=== PATIENT | female | born 2000 | race Caucasian/White ===

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

== ENCOUNTER 2018-01-17 14:35 | Outpatient (CLI) | payer MEDICAID ==
[2018-01-17 17:43] LABS: MUDS CUTOFF CONCENTRATIONS CUTOFF CONC BELOW:
[2018-01-17 18:01] LABS: AMPHETAMINE SCREEN,URINE NEGATIVE (NEGATIVE); BENZODIAZEPINES SCREEN, URINE NEGATIVE (NEGATIVE); COCAINE SCREEN URINE NEGATIVE (NEGATIVE); METHADONE SCREEN, URINE NEGATIVE (NEGATIVE); METHAMPHETAMINES SCREEN, URINE NEGATIVE (NEGATIVE); OPIATE SCREEN, URINE NEGATIVE (NEGATIVE); OXYCODONE SCREEN, URINE NEGATIVE (NEGATIVE); PROPOXYPHENE SCREEN, URINE NEGATIVE (NEGATIVE); TRICYCLIC ANTIDEPRESSANT,URINE NEGATIVE (NEGATIVE)
== END 2018-01-17 14:36 | disposition home or self-care (01) ==
LOC: LAB.R 14:35
PROVIDERS: ATTEND Registered Nurse
DX: Z3A.13 13 weeks gestation of pregnancy (principal)
CPT/HCPCS: 80306

== ENCOUNTER 2018-01-23 12:00 | Emergency (ER) | payer MEDICAID ==
[2018-01-23 12:49] LABS: BILIRUBIN,URINE NEGATIVE (NEGATIVE); GLUCOSE, URINE (UA) NEGATIVE (NEGATIVE); KETONES,URINE (UA) NEGATIVE (NEGATIVE); LEUKOCYTE ESTERASE, URINE NEGATIVE (NEGATIVE); NITRITE,URINE NEGATIVE (NEGATIVE); OCCULT BLOOD,URINE NEGATIVE (NEGATIVE); PROTEIN,URINE NEGATIVE (NEGATIVE); UROBILINOGEN,URINE 1 (NORMAL) E.U./dL (NORMAL)
[2018-01-23 12:50] LABS: CLARITY,URINE CLEAR (CLEAR); HCG UR QUAL POSITIVE
--- NOTE | 2018-01-23 13:52 | ED Physician Documentation ---
PD HPI FEMALE - Stated complaint Stated Complaint: LOWER ABD PX/14WKS PREG - Chief complaint Chief Complaint: Abd Pain - History obtained from History obtained from: Patient, Family - History of Present Illness Timing - onset: Yesterday Timing - details: Intermittant Associated symptoms: Pelvic pain. No: Fever, Vaginal pain, Vaginal bleeding, Vaginal discharge Contributing factors: OB-RESIDENTIAL PLUMBER History: G (1), P (0) Recently seen: Not recently seen - Additional information Additional information: Patient is a 18 year old female about 14 weeks by dates who is presenting to the emergency department for evaluation of lower abdominal pain. patient states that the symptoms started yesterday and she was worried about them all night so she came to the ED to get checked out. Patient has had routine care and IUP has been confirmed. Review of Systems Ten Systems: 10 systems reviewed and negative Constitutional: denies: Fever, Chills GI: reports: Abdominal Pain. denies: Nausea, Vomiting, Constipation, Diarrhea : denies: Dysuria, Frequency, Hesitancy, Discharge PD PAST MEDICAL HISTORY - Past Medical History Past Medical History: No - Past Surgical History Past Surgical History: No - Allergies Allergies/Adverse Reactions: Allergies Allergy/AdvReac Type Severity Reaction Status Date / Time Penicillins Allergy Hives Verified 01/23/18 12:07 - Social History Does the pt smoke?: No Smoking Status: Never smoker Does the pt drink ETOH?: No Does the pt have substance abuse?: No - Immunizations Immunizations are current?: Yes - POLST Patient has POLST: No PD ED PE NORMAL - Vitals Vital signs reviewed: Yes - General General: Alert and oriented X 3, No acute distress - HEENT HEENT: Atraumatic - Neck Neck: Supple, no meningeal sign - Cardiac Cardiac: RRR - Respiratory Respiratory: No respiratory distress - Abdomen Abdomen: Soft, Non tender - Female Female : Pt declined - Derm Derm: Normal color, Warm and dry, No rash - Extremities Extremities: No deformity - Neuro Neuro: Alert and oriented X 3, No motor deficit, Normal speech Eye Opening: Spontaneous Results - Vitals Vitals: Vital Signs - 24 hr 01/23/18 12:05 Temperature 36.7 C Heart Rate 108 H Respiratory 18 Rate Blood Pressure 132/71 H O2 Saturation 98 Oxygen O2 Source Room air - Labs Labs: Laboratory Tests 01/23/18 12:34 Urine Color YELLOW Urine Clarity CLEAR Urine pH 6.0 Ur Specific [place] 1.015 Urine Protein NEGATIVE Urine Glucose (UA) NEGATIVE Urine Ketones NEGATIVE Urine Occult Blood NEGATIVE Urine Nitrite NEGATIVE Urine Bilirubin NEGATIVE Urine Urobilinogen 1 (NORMAL) Ur Leukocyte Esterase NEGATIVE Ur Microscopic Review NOT INDICATED Urine Culture Comments NOT INDICATED Urine HCG, Qual POSITIVE Procedures - Bedside sono Bedside sono by EMP: bedside pelvic ultrasound showed a viable IUP with a fhr of 158 PD MEDICAL DECISION MAKING - ED course Complexity details: reviewed old records, reviewed results, re-evaluated patient , considered differential, d/w patient ED course: patient was seen and examined at bedside. urine was collected. Patient had no sign of dehydration or infection. bedside ultrasound was performed and was within normal limits. Patient declined pelvic exam at this time and stated that she would follow up with her beveling machine operator.. patient required no further work up at this time and was stable for discharge with outpatient follow up. - Sepsis Event Vital Signs: Vital Signs - 24 hr 01/23/18 12:05 Temperature 36.7 C Heart Rate 108 H Respiratory 18 Rate Blood Pressure 132/71 H O2 Saturation 98 Oxygen O2 Source Room air Departure - Departure Disposition: 01 Home, Self Care Clinical Impression: Abdominal pain affecting Condition: Good Instructions: Ultrasound Follow-Up: Phi Naidu ARNP [Primary Care Provider] - Within 3 Days Comments: Your diagnostics today were within normal limits. the fetus was well appearing and there is no sign of infection. It is important that you stay well hydrated and you can take tylenol as needed for pain. you should follow up with your doctor /beveling machine operator for further evaluation if your symptoms don't improve. you may return to the emergency department at any time for new, worsening or uncontrollable symptoms.
[2018-01-23 14:01] VITALS: BP 104/65
== END 2018-01-23 13:59 | disposition home or self-care (01) ==
LOC: ED 12:00
DX: O26.891 Other specified pregnancy related conditions, first trimester (principal); R10.30 Lower abdominal pain, unspecified; R10.2 Pelvic and perineal pain; Z3A.14 14 weeks gestation of pregnancy
CPT/HCPCS: 81001; 81003; 81025; 87086; 99283; 99284

== ENCOUNTER 2018-02-09 14:34 | Outpatient (CLI) | payer MEDICAID ==
[2018-02-09 19:01] LABS: BASOPHILS # (AUTO) 0.1 10^3/uL (0.0-0.1); BASOPHILS % (AUTO) 0.5 %; EOSINOPHILS # (AUTO) 0.1 10^3/uL (0.0-0.7); EOSINOPHILS % (AUTO) 0.9 %; HGB - HEMOGLOBIN 12.6 g/dL (12.0-16.0); LYMPHOCYTES # (AUTO) 1.6 10^3/uL (1.5-3.5); LYMPHOCYTES % (AUTO) 15.7 %; MEAN CORPUSCULAR HEMOGLOBIN 30.2 pg (27.0-31.0); MEAN CORPUSCULAR HGB CONC 35.3 g/dL (32.0-36.0); MEAN CORPUSCULAR VOLUME 85.7 fL (81.0-99.0); MEAN PLATELET VOLUME 8.6 fL (7.9-10.8); MONOCYTES # (AUTO) 0.6 10^3/uL (0.0-1.0); MONOCYTES % (AUTO) 5.5 %; NEUTROPHILS # (AUTO) 7.8 10^3/uL (1.5-6.6); NEUTROPHILS % (AUTO) 77.4 %; PLT - PLATELET COUNT 288 10^3/uL (130-450); RED BLOOD COUNT 4.18 10^6/uL (4.20-5.40); RED CELL DISTRIBUTION WIDTH 12.6 % (12.0-15.0); WHITE BLOOD COUNT 10.1 x10^3/uL (4.8-10.8)
[2018-02-09 19:13] LABS: BILIRUBIN,URINE NEGATIVE (NEGATIVE); GLUCOSE, URINE (UA) NEGATIVE (NEGATIVE); KETONES,URINE (UA) NEGATIVE (NEGATIVE); LEUKOCYTE ESTERASE, URINE NEGATIVE (NEGATIVE); NITRITE,URINE NEGATIVE (NEGATIVE); OCCULT BLOOD,URINE NEGATIVE (NEGATIVE); PH,URINE 6.5 PH (5.0-7.5); PROTEIN,URINE TRACE mg/dL (NEGATIVE); UROBILINOGEN,URINE 0.2 (NORMAL) E.U./dL (NORMAL)
[2018-02-09 19:22] LABS: CLARITY,URINE CLEAR (CLEAR)
[2018-02-09 21:39] LABS: AMORPHOUS SEDIMENT,UR Few /LPF; BACTERIA,URINE None Seen /HPF (None Seen); MUCUS,URINE Few Strands; RBC,URINE None Seen /HPF (0-5); SQUAMOUS EPITHELIAL CELL,UR NONE SEEN (<= Few)
[2018-02-09 21:40] LABS: CRYSTALS,URINE 6-10 Calcium Oxalate /LPF
[2018-02-10 10:31] LABS: HEPATITIS B SURFACE ANTIGEN NON-REACTIVE (NON-REACTIVE)
[2018-02-10 12:36] LABS: HEPATITIS C ANTIBODY NON-REACTIVE (NON-REACTIVE)
[2018-02-10 14:32] LABS: HIV AG/AB 4TH GEN NON-REACTIVE (NON-REACTIVE)
== END 2018-02-09 14:35 | disposition home or self-care (01) ==
LOC: LAB.N 14:34
PROVIDERS: ATTEND Nurse Practitioner Obstetrics & Gynecology
DX: Z34.81 Encounter for supervision of other normal pregnancy, first trimester (principal)
CPT/HCPCS: 36415; 81001; 81599; 82105; 82677; 84702; 85025; 86336; 86592; 86762; 86803; 86850; 86900; 86901; 87340; 87389

== ENCOUNTER 2018-03-10 07:24 | Outpatient (CLI) | payer MEDICAID ==
--- NOTE | 2018-03-10 09:41 | Ultrasound Report ---
Reason: ENCTR FOR SCREENING Procedure Date: 03/10/2018 Accession Number: [id number] / [id number] Procedure: US - OB Detailed Eval CPT Code: FULL RESULT: EXAM: COMPLETE OBSTETRICAL ULTRASOUND EXAM DATE: 03/10/2018 09:13 AM. CLINICAL HISTORY: anatomic survey. COMPARISON: None. TECHNIQUE: Real-time sonographic evaluation of the fetus performed by the accountancy professor. Multiple business representative static images were saved for review. Additional transvaginal imaging to more accurately evaluate cervical length/placental position/etc. DATING: Established EGA 21 weeks 0 days with TERRENCE 07/21/2018 based on LMP. EGA 21 weeks 0 days with TERRENCE 07/21/2018 based on the current ultrasound. GENERAL EVALUATION Wan . Cardiac activity: 150 bpm. movement: Visualized. Presentation: Cephalic. Placenta: Posterior position. No evidence for previa. Umbilical cord: 3 vessel cord. Central placental cord origin. Amniotic fluid: Subjectively normal. MVP 4.6 cm. BIOMETRY Bi-Parietal Diameter (BPD): 5.0 cm, 21 weeks 0 days Head Circumference (HC): 18.6 cm, 21 weeks 0 days Abdominal Circumference (AC): 14.9 cm, 20 weeks 1 day Femur Length (FL): 3.6 cm, 21 weeks 4 days Estimated Weight: 381 gm, 37th percentile for LMP. ANATOMY The intracranial structures, profile, face/nose/lips, spine, 4 chamber heart and outflow tracts, stomach, abdominal wall and cord insertion, diaphragm, kidneys, bladder, and extremities were visualized and demonstrate no abnormality. MATERNAL STRUCTURES Uterus: Unremarkable. Cervix: Long and closed. Transabdominal length 3.6 cm. Right ovary/adnexa: Unremarkable. Left ovary/adnexa: Unremarkable. Free fluid: None. IMPRESSION: 1. Wan live intrauterine with gestational age 21 weeks 0 days based on source of assigned dating. 2. Estimated weight is within expected limits for assigned dating. 3. No anatomic abnormalities are detected at this time. RADIA
== END 2018-03-10 07:25 | disposition home or self-care (01) ==
LOC: DI 07:24
PROVIDERS: ATTEND Registered Nurse
DX: Z36.9 Encounter for antenatal screening, unspecified (principal)
CPT/HCPCS: 76811

== ENCOUNTER 2018-04-24 13:28 | Outpatient (CLI) | payer MEDICAID ==
[2018-04-24 18:37] LABS: BASOPHILS # (AUTO) 0.1 10^3/uL (0.0-0.1); BASOPHILS % (AUTO) 0.7 %; EOSINOPHILS # (AUTO) 0.2 10^3/uL (0.0-0.7); EOSINOPHILS % (AUTO) 1.5 %; HGB - HEMOGLOBIN 11.8 g/dL (12.0-16.0); LYMPHOCYTES # (AUTO) 2.1 10^3/uL (1.5-3.5); LYMPHOCYTES % (AUTO) 15.4 %; MEAN CORPUSCULAR VOLUME 88.4 fL (81.0-99.0); MEAN PLATELET VOLUME 8.6 fL (7.9-10.8); MONOCYTES # (AUTO) 0.7 10^3/uL (0.0-1.0); MONOCYTES % (AUTO) 5.1 %; NEUTROPHILS # (AUTO) 10.3 10^3/uL (1.5-6.6); NEUTROPHILS % (AUTO) 77.3 %; PLT - PLATELET COUNT 300 10^3/uL (130-450); RED BLOOD COUNT 3.81 10^6/uL (4.20-5.40); RED CELL DISTRIBUTION WIDTH 13.2 % (12.0-15.0); WHITE BLOOD COUNT 13.3 x10^3/uL (4.8-10.8)
== END 2018-04-24 13:29 | disposition home or self-care (01) ==
LOC: LAB.N 13:28
PROVIDERS: ATTEND Registered Nurse
DX: Z34.82 Encounter for supervision of other normal pregnancy, second trimester (principal)
CPT/HCPCS: 36415; 82950; 85025; 86850

== ENCOUNTER 2018-05-23 22:47 | Outpatient (CLI) | payer MEDICAID ==
[2018-05-23 23:06] VITALS: BP 115/70
== END 2018-05-24 00:26 | disposition home or self-care (01) ==
LOC: WFO 22:47 → FBP 22:50 → WFO 05-24 00:26
PROVIDERS: ATTEND Obstetrics & Gynecology
DX: O26.893 Other specified pregnancy related conditions, third trimester (principal); R25.2 Cramp and spasm; R55 Syncope and collapse; Z3A.31 31 weeks gestation of pregnancy
CPT/HCPCS: 93005; 99214

== ENCOUNTER 2018-05-29 08:00 | Outpatient (CLI) | payer MEDICAID | END 2018-05-29 08:01 | disposition home or self-care (01) | LOC: LAB.R 08:00 | PROVIDERS: ATTEND Nurse Practitioner Obstetrics & Gynecology | DX: O36.8131 Decreased fetal movements, third trimester, fetus 1 (principal); N89.8 Other specified noninflammatory disorders of vagina; Z11.3 Encounter for screening for infections with a predominantly sexual mode of transmission | CPT/HCPCS: 82731; 87480; 87491; 87510; 87591; 87660 ==

== ENCOUNTER 2018-05-29 10:47 | Outpatient (CLI) | payer MEDICAID ==
[2018-05-29 11:04] VITALS: BP 125/74
== END 2018-05-29 11:25 | disposition home or self-care (01) ==
LOC: WFO 10:47 → FBP 10:49 → WFO 11:25
PROVIDERS: ATTEND Nurse Practitioner Obstetrics & Gynecology
DX: O36.8130 Decreased fetal movements, third trimester, not applicable or unspecified (principal); Z3A.32 32 weeks gestation of pregnancy; O99.89 Other specified diseases and conditions complicating pregnancy, childbirth and the puerperium; N98.9 Complication associated with artificial fertilization, unspecified; Z11.3 Encounter for screening for infections with a predominantly sexual mode of transmission
CPT/HCPCS: 59025; 82731; 87480; 87491; 87510; 87591; 87660

== ENCOUNTER 2018-06-07 12:32 | Outpatient (CLI) | payer MEDICAID ==
[2018-06-07 13:35] LABS: BILIRUBIN,URINE NEGATIVE (NEGATIVE); GLUCOSE, URINE (UA) NEGATIVE (NEGATIVE); KETONES,URINE (UA) NEGATIVE (NEGATIVE); LEUKOCYTE ESTERASE, URINE NEGATIVE (NEGATIVE); NITRITE,URINE NEGATIVE (NEGATIVE); OCCULT BLOOD,URINE NEGATIVE (NEGATIVE); PROTEIN,URINE NEGATIVE (NEGATIVE); UROBILINOGEN,URINE 0.2 (NORMAL) E.U./dL (NORMAL)
[2018-06-07 13:38] LABS: CLARITY,URINE CLOUDY (CLEAR)
[2018-06-07 13:44] LABS: BACTERIA,URINE Few /HPF (None Seen); RBC,URINE 0-5 /HPF (0-5); SQUAMOUS EPITHELIAL CELL,UR RARE Squamous (<= Few)
[2018-06-07 14:14] VITALS: BP 124/78
[2018-06-07 14:22] LABS: RUPTURE OF MEMBRANES PLUS NEGATIVE (NEGATIVE)
[2018-06-07] MEDS ORDERED: LACTATED RINGERS 1,000 ML IV ONE ×2 (14:40→15:01)
[2018-06-07] MEDS ORDERED: SODIUM CHLORIDE FLUSH 0.9% 10 ML SYRINGE ONE (14:40)
[2018-06-07] MEDS ORDERED: LIDOCAINE-MPF 1% 5 ML VIAL ONE (15:12)
[2018-06-07] MEDS ORDERED: TERBUTALINE 1 MG/ML VIAL SUBQ ONE (16:16)
== END 2018-06-07 17:32 | disposition home or self-care (01) ==
LOC: WFO 12:32 → FBP 12:33 → WFO 17:32
PROVIDERS: ATTEND Nurse Practitioner Obstetrics & Gynecology
DX: O47.03 False labor before 37 completed weeks of gestation, third trimester (principal); Z3A.33 33 weeks gestation of pregnancy
CPT/HCPCS: 81001; 82731; 84112; 96360; 96361; 96372; 99213; J7120; 87086

== ENCOUNTER 2018-06-25 21:41 | Outpatient (CLI) | payer MEDICAID ==
[2018-06-25 22:12] VITALS: BP 122/73
== END 2018-06-25 22:51 | disposition home or self-care (01) ==
LOC: WFO 21:41 → FBP 21:45 → WFO 22:51
PROVIDERS: ATTEND Nurse Practitioner Obstetrics & Gynecology
DX: O47.03 False labor before 37 completed weeks of gestation, third trimester (principal); Z3A.36 36 weeks gestation of pregnancy
CPT/HCPCS: 87797; 99212

== ENCOUNTER 2018-06-26 11:14 | Outpatient (CLI) | payer MEDICAID ==
[2018-06-26 11:44] VITALS: BP 115/77
[2018-06-26 12:01] LABS: RUPTURE OF MEMBRANES PLUS NEGATIVE (NEGATIVE)
== END 2018-06-26 12:30 | disposition home or self-care (01) ==
LOC: WFO 11:14 → FBP 11:17 → WFO 12:30
PROVIDERS: ATTEND Nurse Practitioner Obstetrics & Gynecology
DX: O99.89 Other specified diseases and conditions complicating pregnancy, childbirth and the puerperium (principal); N89.8 Other specified noninflammatory disorders of vagina; Z3A.36 36 weeks gestation of pregnancy
CPT/HCPCS: 59025; 84112

== ENCOUNTER 2018-06-26 18:13 | Outpatient (CLI) | payer MEDICAID ==
[2018-06-26] MEDS ORDERED: LACTATED RINGERS 1,000 ML IV ONE (19:31)
[2018-06-26] MEDS ORDERED: MORPHINE 10 MG/ML VIAL IM SCH (19:34)
[2018-06-26] MEDS ORDERED: NIFEdipine ER 90 MG TABLET PO SCH (20:00)
[2018-06-26] MEDS ORDERED: PROMETHAZINE 25 MG/1 ML VIAL IM SCH (20:00)
[2018-06-26] MEDS: LACTATED RINGERS 1,000 ML IV SCH ×2 (20:11→20:40)
[2018-06-27 08:52] VITALS: BP 120/70
== END 2018-06-27 09:26 | disposition home or self-care (01) ==
LOC: WFO 18:13 → FBP 18:14 → WFO 19:57 → FBP 19:57 → UNDOADMOB 19:58 → FBP 19:58 → UNDODISOB 06-27 09:26 → WFO 06-27 09:26
PROVIDERS: ATTEND Registered Nurse
DX: O47.03 False labor before 37 completed weeks of gestation, third trimester (principal); Z3A.36 36 weeks gestation of pregnancy; O99.89 Other specified diseases and conditions complicating pregnancy, childbirth and the puerperium; N89.8 Other specified noninflammatory disorders of vagina
CPT/HCPCS: 59025; 84112; 96360; 96372; 99213; A9270; J7120

== ENCOUNTER 2018-06-28 01:12 | Outpatient (CLI) | payer MEDICAID ==
[2018-06-28 01:26] VITALS: BP 112/59
== END 2018-06-28 02:30 | disposition home or self-care (01) ==
LOC: WFO 01:12 → FBP 01:13 → WFO 02:30
PROVIDERS: ATTEND Nurse Practitioner Obstetrics & Gynecology
DX: O47.03 False labor before 37 completed weeks of gestation, third trimester (principal); Z3A.36 36 weeks gestation of pregnancy
CPT/HCPCS: 96372; 99213; J3410

== ENCOUNTER 2018-06-30 00:26 | Outpatient (CLI) | payer MEDICAID ==
[2018-06-30 00:45] VITALS: BP 127/71
[2018-06-30] MEDS ORDERED: TERBUTALINE 1 MG/ML VIAL SUBQ ONE (01:38)
[2018-06-30] MEDS ORDERED: PROMETHAZINE 25 MG/1 ML VIAL IM STA (01:38)
[2018-06-30 02:07] LABS: BILIRUBIN,URINE NEGATIVE (NEGATIVE); GLUCOSE, URINE (UA) NEGATIVE (NEGATIVE); KETONES,URINE (UA) NEGATIVE (NEGATIVE); LEUKOCYTE ESTERASE, URINE NEGATIVE (NEGATIVE); NITRITE,URINE NEGATIVE (NEGATIVE); OCCULT BLOOD,URINE NEGATIVE (NEGATIVE); PH,URINE 6.5 PH (5.0-7.5); PROTEIN,URINE NEGATIVE (NEGATIVE); UROBILINOGEN,URINE 0.2 (NORMAL) E.U./dL (NORMAL)
[2018-06-30 02:11] LABS: CLARITY,URINE CLEAR (CLEAR)
== END 2018-06-30 02:30 | disposition home or self-care (01) ==
LOC: WFO 00:26 → FBP 00:28 → WFO 02:30
PROVIDERS: ATTEND Nurse Practitioner Obstetrics & Gynecology
DX: O47.1 False labor at or after 37 completed weeks of gestation (principal); Z3A.37 37 weeks gestation of pregnancy
CPT/HCPCS: 81001; 81003; 87086; 99213

== ENCOUNTER 2018-07-01 20:11 | Outpatient (CLI) | payer MEDICAID ==
[2018-07-01 21:02] VITALS: BP 116/66
[2018-07-01 21:16] LABS: RUPTURE OF MEMBRANES PLUS NEGATIVE (NEGATIVE)
== END 2018-07-01 21:35 | disposition home or self-care (01) ==
LOC: WFO 20:11 → FBP 20:14 → WFO 21:35
PROVIDERS: ATTEND Nurse Practitioner Obstetrics & Gynecology
DX: O99.89 Other specified diseases and conditions complicating pregnancy, childbirth and the puerperium (principal); N89.8 Other specified noninflammatory disorders of vagina; Z3A.37 37 weeks gestation of pregnancy
CPT/HCPCS: 84112; 99213

== ENCOUNTER 2018-07-03 08:00 | Outpatient (CLI) | payer MEDICAID | END 2018-07-03 23:59 | disposition home or self-care (01) | LOC: LAB.R 08:00 | PROVIDERS: ATTEND Nurse Practitioner Obstetrics & Gynecology | DX: Z36.85 Encounter for antenatal screening for Streptococcus B (principal) | CPT/HCPCS: 87081 ==

== ENCOUNTER 2018-07-06 23:10 | Outpatient (CLI) | payer MEDICAID ==
[2018-07-06 23:26] VITALS: BP 126/77
[2018-07-07 00:27] LABS: RUPTURE OF MEMBRANES PLUS NEGATIVE (NEGATIVE)
== END 2018-07-07 00:48 | disposition home or self-care (01) ==
LOC: WFO 23:10 → FBP 23:12 → WFO 07-07 00:48
PROVIDERS: ATTEND Registered Nurse
DX: O47.1 False labor at or after 37 completed weeks of gestation (principal); Z3A.37 37 weeks gestation of pregnancy
CPT/HCPCS: 84112; 99213

== ENCOUNTER 2018-07-12 16:24 | Outpatient (CLI) | payer MEDICAID ==
[2018-07-12 16:49] VITALS: BP 126/77
[2018-07-12 17:35] LABS: RUPTURE OF MEMBRANES PLUS NEGATIVE (NEGATIVE)
== END 2018-07-12 17:58 | disposition home or self-care (01) ==
LOC: WFO 16:24 → FBP 16:27 → WFO 17:58
PROVIDERS: ATTEND Registered Nurse
DX: O47.1 False labor at or after 37 completed weeks of gestation (principal); Z3A.38 38 weeks gestation of pregnancy
CPT/HCPCS: 84112; 99212

== ENCOUNTER 2018-07-15 17:07 | Inpatient (IN) | payer MEDICAID ==
[2018-07-15] MEDS ORDERED: CARBOPROST TROMETHAMINE 250 MCG/ML AMP IM PRN (17:13)
[2018-07-15] MEDS ORDERED: ONDANSETRON ODT 4 MG TABLET TL PRN (17:13)
[2018-07-15] MEDS ORDERED: fentaNYL 100 MCG/2 ML VIAL IVP PRN (17:13)
[2018-07-15] MEDS ORDERED: miSOPROStol 200 MCG TABLET PR ONE (17:13)
[2018-07-15] MEDS ORDERED: SODIUM CHLORIDE FLUSH 0.9% 10 ML SYRINGE IVP PRN (17:13)
[2018-07-15] MEDS ORDERED: METHYLERGONOVINE 0.2 MG/ML AMP IM PRN (17:13)
[2018-07-15] MEDS ORDERED: miSOPROStol 200 MCG TABLET PR PRN (17:13)
[2018-07-15] MEDS ORDERED: OXYTOCIN/SODIUM CHLORIDE 500 ML IV SCH (18:00)
[2018-07-15] MEDS: miSOPROStol 100 MCG TABLET BC SCH ×2 (18:04→23:44)
[2018-07-15 18:06] LABS: BASOPHILS # (AUTO) 0.1 10^3/uL (0.0-0.1); BASOPHILS % (AUTO) 0.6 %; EOSINOPHILS # (AUTO) 0.2 10^3/uL (0.0-0.7); EOSINOPHILS % (AUTO) 1.5 %; HGB - HEMOGLOBIN 11.6 g/dL (12.0-16.0); LYMPHOCYTES # (AUTO) 2.3 10^3/uL (1.5-3.5); LYMPHOCYTES % (AUTO) 17.1 %; MEAN CORPUSCULAR HEMOGLOBIN 28.3 pg (27.0-31.0); MEAN CORPUSCULAR HGB CONC 33.2 g/dL (32.0-36.0); MEAN CORPUSCULAR VOLUME 85.3 fL (81.0-99.0); MONOCYTES # (AUTO) 0.8 10^3/uL (0.0-1.0); MONOCYTES % (AUTO) 5.8 %; NEUTROPHILS # (AUTO) 10.2 10^3/uL (1.5-6.6); PLT - PLATELET COUNT 348 10^3/uL (130-450); RED CELL DISTRIBUTION WIDTH 13.6 % (12.0-15.0); WHITE BLOOD COUNT 13.6 x10^3/uL (4.8-10.8)
[2018-07-15] MEDS ORDERED: ZOLPIDEM 5 MG TABLET PO PRN (22:35)
[2018-07-16] MEDS: LACTATED RINGERS 1,000 ML IV SCH ×2 (04:18→11:22)
--- NOTE | 2018-07-16 04:59 | PROVIDER PROGRESS NOTE ---
Labor Progress Note - Uterine Monitoring Uterine Monitoring Mode: positive: External toco Contraction Frequency (min/apart): 2-3 Contraction Intensity: positive: Mild Uterine Resting Tone: positive: Soft - Monitoring Monitor Mode: positive: External ultrasound Heart Rate Baseline: 145 Heart Rate Variability: positive: Moderate (6-25 bmp) Accelerations: positive: Present, 15x15 Decelerations: positive: Late, Intermittent (<50% x20 min) Strip Review: positive: Category II - Vaginal Exam Dilation (in cm): 1 Effacement (%): 70 Station: -1 Cervical Position: Midposition (soft) - Labor Progress Note Labor Progress Note/Additional Text: S: Carmen is comfortable, reports occasional cramping; was able to sleep some, but not for a prolonged period of time, now watching a DVD, partner @ bedside, supportive. Does not desire analgesia/anesthesia @ this time. 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 Hold misoprostol until strip consistently reactive 2. Reviewed likely etiology of late decelerations & recommended maternal position changes 3. Reviewed optimal maternal positioning to facilitate descent 4. Will place FSE if decelerations persistent despite maternal position changes 5. Continue misoprostol for cervical ripening once EFM reassuring, CEFM for duration of cervical ripening to ensure consistent evaluation of well- being 6. Reviewed plan of care w/ pt, partner & RN @ bedside; all in agreement, without concerns.
--- NOTE | 2018-07-16 05:08 | HISTORY & PHYSICAL EXAMINATION ---
Admit History - Visit Reason Visit Reason: Other (preinduction cervical ripening for elective induction of labor >39 weeks' gestation) - : 2 Parity: 0 Premature: 0 Ectopic: 0 : 1 Care: positive: [facility] (beginning @ 8 weeks' gestation) Risk/History: positive: None Complications This : positive: None Smoking Status: Current every day smoker - Mother's Labs Mother's Blood Type: positive: A Mother's RH: positive: Positive GBS: positive: Group B Step Negative Rubella Status: positive: Immune - Other Maternal History Other Maternal History: Carmen Sen is a 18 y/o @ 39w2d gestation by early first trimester US who presents for preinduction cervical ripening for elective induction of labor per pt request for maternal discomfort. Her has been complicated by anxiety and depression for which she has refused medication management and by frequent visits to [facility] for concerns that have not been clinically evident at the time of evaluation. She has smoked tobacco throughout her & was not successful in her attempts to quit, although she did decrease the quantity of cigarettes smoked on a daily basis from ~1ppd to <1/2 ppd. She complains of discomfort w/ movement & w/ contractions; she is hoping for an unmedicated delivery. PMH: depression, anxiety, PTSD PSH: none OBhx: SAB 2016, 7 weeks, uncomplicated GYNHx: Denies hx of STI; too young for pap screening SocHx: to [place]; denies DV: smokes <1/2ppd, denies ETOH/drugs; tox screen negative; unemployed Famhx: noncontributory PE: GEN: AAOx3, NAD WA gravid female HEENT: grossly normocephalic, atraumatic RESP: CTA b/l t/o CARDIAC: rrr nls1s2, no m ABD: gravid, NT, ND, lie longitudinal, position cephalic, EFW 7.5-8# OB: EFM BL 145bpm, + accels, no decels, mod jaimee; toco: occ UC; SVE in office /-1, posterior : no lesion, no LOF MS: FROM t/o, no deformity, no edema NEURO: no focal deficit SKIN: warm, well-perfused, c/d/i, no lesion PSYCH: odd affect, often pressured speech, otherwise pleasantly conversant Meds/Allgy - Allergies Allergies/Adverse Reactions: Allergies Allergy/AdvReac Type Severity Reaction Status Date / Time Penicillins Allergy Unknown Hives Verified 07/15/18 22:57 dairy AdvReac Intermediate Nausea Uncoded 07/15/18 22:56 eggs AdvReac Intermediate Cramps Uncoded 07/15/18 22:57 gluten AdvReac Intermediate Cramps Uncoded 06/26/18 19:04 cantalope, honeydew AdvReac Unknown Cramps Uncoded 07/15/18 22:57 Physical - Abdominal Exam Vital Signs: Temp Pulse Resp BP Pulse Ox 36.9 C 103 H 20 121/69 98 07/15/18 17:26 07/15/18 18:41 07/15/18 17:26 07/15/18 17:26 07/15/18 17:26 Plan for Labor - Plan For Labor I expect patient to be DC'd or transferred within 96 hours.: Yes Plan for Labor: 1. initiate preinduction cervical ripening w/ misoprostol 50mcg BC q 4 hours 2. CEFM for cervical ripening; may have periods unmonitored if >4 hours since misoprostol administration & FHTs cat I 3. Reassess cervical status w/ clear clinical indication 4. Encouraged maternal ambulation/mobilization 5. Admit to inpatient status w/ ROM or active labor 6. Pt aware of all analgesia/anesthesia options
[2018-07-16] MEDS ORDERED: NICOTINE 7 MG PATCH TOP ONE (06:18)
[2018-07-16] MEDS ORDERED: NICOTINE 7 MG PATCH TOP SCH (09:00)
--- NOTE | 2018-07-16 09:05 | ANESTHESIA ---
Pre-Anesthesia VS, & Labs - Diagnosis Active labor - Procedure Vaginal delivery Vital Signs: Temp Pulse Resp BP Pulse Ox 36.9 C 103 H 20 121/69 98 07/15/18 17:26 07/15/18 18:41 07/15/18 17:26 07/15/18 17:26 07/15/18 17:26 Height 5 ft 2 in Weight (kg) 79.832 kg Body Mass Index 28.1 - NPO Other (N/A--labor) - Is Patient ?: Yes - Lab Results Current Lab Results: Laboratory Tests 07/15/18 17:40: WBC 13.6 H, RBC 4.10 L, Hgb 11.6 L, Hct 35.0 L, MCV 85.3, MCH 28.3, MCHC 33.2, RDW 13.6, Plt Count 348, MPV 8.0, Neut # (Auto) 10.2 H, Lymph # (Auto) 2.3, [place] # (Auto) 0.8, Eos # (Auto) 0.2, Baso # (Auto) 0.1, Absolute Nucleated RBC 0.02, Nucleated RBC % 0.1 Fish Bones: 07/15/18 17:40 Home Medications and Allergies Active Medications Acetaminophen (Tylenol) 650 mg PO Q6H PRN PRN Reason: Pain or Fever Carboprost Tromethamine (Hemabate) 250 mcg IM ONCE PRN PRN Reason: Post- Hemorrhage Stop: 07/22/18 17:12 Fentanyl (Fentanyl) 100 mcg IVP Q1H PRN PRN Reason: PAIN Last Admin: 07/16/18 08:21 Dose: 50 mcg Lactated Ringer's (Lr) 1,000 mls @ 100 mls/hr IV .Q10H AGUILA Last Admin: 07/16/18 04:18 Dose: 100 mls/hr Oxytocin/Sodium Chloride (Pitocin/Sodium Chloride) 500 mls @ 1 mls/hr IV TITR AGUILA; Protocol Methylergonovine Maleate (Methergine Inj) 0.2 mg IM Q4H PRN PRN Reason: Post- Hemorrhage Misoprostol (Cytotec) 50 mcg BC Q4HR AGUILA Last Admin: 07/15/18 23:44 Dose: 50 mcg Misoprostol (Cytotec) 800 mcg RI ONCE PRN PRN Reason: Post- Hemorrhage Stop: 07/22/18 17:12 Nicotine (Nicoderm) 1 patch TOP DAILY AGUILA Last Admin: 07/16/18 06:16 Dose: 1 patch Ondansetron HCl (Zofran Inj) 4 mg IVP Q4HR PRN PRN Reason: Nausea / Vomiting Ondansetron HCl (Zofran Odt) 4 mg TL Q4HR PRN PRN Reason: Nausea / Vomiting Sodium Chloride (Normal Saline Flush 0.9%) 10 ml IVP 0100,0900,1700 AGUILA Sodium Chloride (Normal Saline Flush 0.9%) 10 ml IVP PRN PRN PRN Reason: NEEDED PER PROVIDER ORDERS Zolpidem Tartrate (Ambien) 5 mg PO QPM PRN PRN Reason: Insomnia Last Admin: 07/15/18 23:01 Dose: 5 mg Allergies/Adverse Reactions: Allergies Allergy/AdvReac Type Severity Reaction Status Date / Time Penicillins Allergy Unknown Hives Verified 07/15/18 22:57 dairy AdvReac Intermediate Nausea Uncoded 07/15/18 22:56 eggs AdvReac Intermediate Cramps Uncoded 07/15/18 22:57 gluten AdvReac Intermediate Cramps Uncoded 06/26/18 19:04 cantalope, honeydew AdvReac Unknown Cramps Uncoded 07/15/18 22:57 Anes History & Medical History - Anesthetic History Family history of Anesthesia Complications: Denies Family history of Malignant Hyperthermia: Denies - Medical History Cardiovascular: reports: None Pulmonary: reports: Asthma (exercise induced asthma as a teen) Gastrointestinal: reports: None Urinary: reports: None Neuro: reports: Migraines, Other ("pinched nerve that radiates from low back to neck" Denies any diagnostic studies) Endocrine/Autoimmune: reports: None Blood Disorders: reports: None Skin: reports: None Smoking Status: Current every day smoker Psychosocial: reports: Depression, Anxiety - Obstetrical History : 2 Parity: 0 Events: positive: None Complications: positive: None Exam General: Alert, Oriented x3, Cooperative, No acute distress Dental: WNL Mouth Openin Fingerbreadth Mallampati classification: II Thyromental Distance: 4-6 cm Mental/Cognitive Status: Alert/Oriented X3, Normal for patient Plan Anesthesia Type: Epidural Consent for Procedure(s) Verified and Reviewed: Yes Code Status: Attempt Resuscitation ASA classification: 2-Mild systemic disease Is this case an emergency?: No
[2018-07-16] MEDS ORDERED: fent/BUPIV 2 MCG/0.125% 250 ML EP ONE (09:13)
[2018-07-16] MEDS ORDERED: BUPIVACAINE 0.25% PF 10 ML VIAL ONE (09:14)
[2018-07-16] MEDS ORDERED: NALOXONE 0.4 MG/ML VIAL IVP PRN (09:44)
[2018-07-16] MEDS ORDERED: ONDANSETRON 4 MG/2 ML VIAL IVP PRN (09:44)
[2018-07-16] MEDS ORDERED: NALBUPHINE 10 MG/ML AMP IVP PRN (09:44)
[2018-07-16] MEDS ORDERED: ePHEDrine 50 MG/ML VIAL IVP PRN (09:44)
[2018-07-16] MEDS ORDERED: fent/BUPIV 2 MCG/0.125% 250 ML EP PRN (09:44)
[2018-07-16] MEDS: SODIUM CHLORIDE FLUSH 0.9% 10 ML SYRINGE IVP SCH ×2 (11:17→16:15)
[2018-07-16] MEDS: ONDANSETRON 4 MG/2 ML VIAL IVP PRN ×2 (11:17→16:15)
[2018-07-16] MEDS ORDERED: SODIUM CHLORIDE FLUSH 0.9% 10 ML SYRINGE ONE ×2 (11:19→16:16)
[2018-07-16] MEDS ORDERED: miSOPROStol 200 MCG TABLET ONE (15:53)
--- NOTE | 2018-07-16 17:37 | PROVIDER PROGRESS NOTE ---
Labor Progress Note - Uterine Monitoring Uterine Monitoring Mode: positive: External toco Contraction Frequency (min/apart): 2-5 Contraction Intensity: positive: Moderate Uterine Resting Tone: positive: Soft - Monitoring Monitor Mode: positive: External ultrasound Heart Rate Baseline: 145 Heart Rate Variability: positive: Moderate (6-25 bmp) Accelerations: positive: Present, 15x15 Decelerations: positive: None Strip Review: positive: Category I - Vaginal Exam Dilation (in cm): 3 Effacement (%): 70 Station: -1 Cervical Position: Midposition (per RN) - Labor Progress Note Labor Progress Note/Additional Text: S: Carmen is uncomfortable & cramping. Desires analgesia, considering anesthesia O: AAOx3, NAD WA gravid female VSS EFM: BL 150bpm, +accels, no decels, mod jaimee TOCO: UCs q2-5 min SVE per RN: 3/70/-1; SROM for thick MSAF A: 18 y/o @ 39w2d by first trimester US, elective IOL per pt request Cervical change s/p 2 doses buccal misoprostol SROM for thick MSAF, GBS neg Desires analgesia FHTs cat I P: 1. Analgesia/anesthesia PRN per pt request 2. Reassess cervical status when comfortable, begin Pitocin if no change
--- NOTE | 2018-07-16 17:41 | PROVIDER PROGRESS NOTE ---
Labor Progress Note - Uterine Monitoring Uterine Monitoring Mode: positive: External toco Contraction Frequency (min/apart): 3-6 Contraction Intensity: positive: Moderate Uterine Resting Tone: positive: Soft - Monitoring Monitor Mode: positive: External ultrasound Heart Rate Baseline: 145 Heart Rate Variability: positive: Moderate (6-25 bmp) Accelerations: positive: Present, 15x15 Decelerations: positive: None Strip Review: positive: Category I - Vaginal Exam Dilation (in cm): 4 Effacement (%): 70 Station: -1 (per RN) Cervical Position: Midposition - Labor Progress Note Labor Progress Note/Additional Text: S: Carmen is comfortable w/ epidural in place O: AAox3, NAD WA gravid female VSS EFM: BL 145bpm, +accels, no decels, mod jaimee TOCO: UCs q3-6 min SVE: 4/70/-1 per RN Ongoing leakage of thick MSAF A: 18 y/o @ 39w2d by first trimester US s/p preinduction cervical ripening, effective w/ 2 doses buccal misoprostol Favorable cervical status, erratic contraction pattern GBS neg, MSAF, SROM x3 hours, afebrile FHTs cat I Adequate pain control w/ epidural anesthesia P: 1. Begin Pitocin infusion & titrate to adequate contraction pattern by tocometry 2. Reassess cervical status 2 hours s/p establishment of adequate labor by tocometry, earlier PRN 3. Encouraged maternal rest
--- NOTE | 2018-07-16 17:44 | PROVIDER PROGRESS NOTE ---
Labor Progress Note - Uterine Monitoring Uterine Monitoring Mode: positive: External toco Contraction Frequency (min/apart): 2-3 Contraction Intensity: positive: Strong Uterine Resting Tone: positive: Soft - Monitoring Monitor Mode: positive: External ultrasound Heart Rate Baseline: 140 Heart Rate Variability: positive: Moderate (6-25 bmp) Accelerations: positive: Present, 15x15 Decelerations: positive: None Strip Review: positive: Category I - Vaginal Exam Dilation (in cm): 7 Effacement (%): 90 Station: 0 Cervical Position: Midposition (per RN) - Labor Progress Note Labor Progress Note/Additional Text: S: Carmen is comfortable w/ her epidural O: AAOx3, NAD WA gravid female VSS EFM BL 140bpm, +accels, no decels, mod jaimee TOCO: UCs q2-3 min x60 seconds on 4mU/min of Pitocin SVE: 7/90/0 per RN Ongoing leakage of thick MSAF A: 18 y/o # 39w2d by first trimester US; elective induction of labor Pitocin induction w/ progressive cervical change s/p misoprostol preinduction cervical ripening Thick MSAF, SROM x7 hours, afebrile GBS neg FHTs cat I Adequate pain control w/ epidural anesthesia P: 1. Continue to titrate Pitocin infusion to maintain adequate labor by tocometry 2. Reassess cervical status x2-4 hours, earlier PRN 3. Encouraged maternal rest
--- NOTE | 2018-07-16 17:50 | DELIVERY NOTE ---
Delivery Note - Labor Labor: positive: Induced by oxytocin, Other - Cervical Ripening Method Cervical Ripening Method: positive: Misoprostil - Presentation Presentation: positive: Vertex, CHARU - right occiput anterior - Nuchal Cord Nuchal Cord: positive: None - Anesthetic Anesthetic Type: - Amniotic Fluid Description Amniotic Fluid Description: positive: Thick meconium - Episiotomy Type Episiotomy Type: positive: None - Laceration Laceration: positive: 1st degree, Vaginal, Other (right jayson-clitoral) - Suture Suture Type: positive: Vicryl Suture Size: positive: 4-0 - Delivery Outcome Delivery Outcome: positive: Livebirth - [place]: positive: Placed in direct skin contact with mother, Suctioned, Bulb syringe, Stimulated, Warmed, Warmer used sex: positive: Male - Cord Cord: positive: 3 vessels - Placenta Placenta: positive: Intact, Spontaneous, Meconium stained - Estimated Blood Loss Estimated Blood Loss (in cc): 150 - Post Delivery Events Post Delivery Events: positive: No post delivery events - Delivery Comments (Free Text/Narrative) Delivery Comments (Free Text/Narrative): Carmen Sen is a 18 y/o [id number] who presented for induction of labor @ 39w1d per pt request for discomfort & prodromal contraction activity. She received 2 doses of buccal misoprostol over a period of 16 hours for effective preinduction cervical ripening. She requested & received an epidural for pain management. She experienced SROM for thick MSAF @ 0730. She received Pitocin infusion to maximum infusion rate of 4mU/min for induction of labor s/p effective cervical ripening. FHTs were monitored electronically t/o & were consistently cat I-II w/o concern for acidemia. She progressed readily to complete dilatation @ 1425, for a total first stage duration of 6 hours. She pushed w/ direction to viable male in CHARU position over an intact perineum @ 1705, for a total 2nd stage duration of 40 minutes. Total ruptured duration 9 hours, 35 minutes, afebrile t/o. Infant vigorous w/ spontaneous, lusty cry. Placed to maternal abd for drying/stim. Delayed cord clamping until cessation of pulsation, then cord clamped x2 by CNM, cut by FOB. 3VC noted, cord blood obtained; cord segment obtained for gases secondary to MSAF. Active management of the 3rd stage w/ Pitocin in IV fluids. Placenta del spont & intact, Jessica, @ 1710, for a total 3rd stage duration of 5 minutes. FF @ U. Vagina & perineum inspected & first degree R periclitoral lac & 1st degree vaginal lac noted; both repaired w/ single stitch of 4-0 vicryl under epidural anesthesia; hemostatic. EBL 150mL. Mother & infant stable. Apgars 8/9; weight pending. n uzzling @ breast w/in 15 minutes of delivery; intends to breastfeed.
[2018-07-16] MEDS ORDERED: WITCH HAZEL/GLYCERIN 1 EACH MED..PAD TOP PRN (17:51)
[2018-07-16] MEDS ORDERED: HYDROCORTISONE/PRAMOXINE 10 GM PR PRN (17:51)
[2018-07-16] MEDS ORDERED: MAGNESIUM HYDROXIDE 2,400 MG/30 ML UDC PO PRN (17:51)
[2018-07-16] MEDS ORDERED: HYDROCORTISONE 1% CREAM 28 GM TUBE PR PRN (17:51)
[2018-07-16] MEDS ORDERED: IBUPROFEN 800 MG TABLET PO SCH (18:00)
[2018-07-16] MEDS: NAPROXEN 250 MG TABLET PO SCH (20:58)
[2018-07-16] MEDS: DOCUSATE SODIUM 100 MG CAPSULE PO SCH (20:58)
[2018-07-16] MEDS: ACETAMINOPHEN 325 MG TABLET PO PRN (20:59)
[2018-07-16] MEDS ORDERED: SODIUM CHLORIDE FLUSH 0.9% 10 ML SYRINGE IVP SCH (23:00)
[2018-07-17] MEDS: ACETAMINOPHEN 325 MG TABLET PO PRN ×3 (08:07→20:29)
[2018-07-17] MEDS: NICOTINE 14 MG PATCH TOP SCH (08:08)
[2018-07-17] MEDS: NAPROXEN 250 MG TABLET PO SCH ×2 (08:08→19:36)
[2018-07-17] MEDS: DOCUSATE SODIUM 100 MG CAPSULE PO SCH ×2 (08:08→22:43)
--- NOTE | 2018-07-17 08:14 | PROVIDER PROGRESS NOTE ---
Subjective - Subjective Subjective: S: Bonding well with baby. without difficulty. Bleeding moderate. Pain well controlled with oral medications. No BM as of yet but has been passing flatulence. Moods is good. and [id number] supportive at the bedside. O: Bp 114/69, T 37.0, Hr 82, RR 20. Heart RRR w/o M/G/R, lungs CTAB, abdomen soft and nontender with fundus firm at U-1, bilateral LE's no edema. Perineum intact. Light lochia rubra. A: 18yo -->P1 PPD#1 s/p TSVD of viable male infant. P: Continue routine care and medications. Specific effort to today. Will evaluate and plan for discharge home tomorrow. Objective - Vital Signs/Intake & Output Vital Signs: Vital Signs x48h Temp Pulse Resp BP Pulse Ox 07/17/18 03:30 37.0 C 82 20 114/69 99 07/17/18 00:12 36.9 C 84 16 115/70 100 Intake & Output: Intake & Output 07/14/18 07/15/18 07/16/18 07/17/18 23:59 23:59 23:59 23:59 Intake Total 814.402 4454 Output Total 325 1100 Balance 381.667 -90 - Lab Results Fish Bones: 07/15/18 17:40
[2018-07-18] MEDS: ACETAMINOPHEN 325 MG TABLET PO PRN ×3 (02:06→16:26)
--- NOTE | 2018-07-18 09:52 | Discharge Plan ---
Discharge Plan Disposition: 01 Home, Self Care Condition: Good Diet: Regular Activity Restrictions: No Restrictions Shower Restrictions: No Driving Restrictions: No No Smoking: If you smoke, Please STOP! Call for help. Follow-up with: Yumiko Garcia CNM, ARNP [Provider Admit Priv/Credential] -
[2018-07-18] MEDS: NICOTINE 14 MG PATCH TOP SCH (09:56)
[2018-07-18] MEDS: NAPROXEN 250 MG TABLET PO SCH (09:56)
[2018-07-18] MEDS: DOCUSATE SODIUM 100 MG CAPSULE PO SCH (09:57)
--- NOTE | 2018-07-18 09:58 | PROVIDER PROGRESS NOTE ---
Subjective - Subjective Subjective: FINAL PROGRESS NOTE: S: Bonding well with baby. without difficulty. Pain is well controlled with oral medications. Bleeding decreased and is light. No BM yet. Has a strong desire to go home today but baby is in nicotine withdrawal and had a DOMENICO score of 7 during the night. supportive at the bedside. O: BP 110/69, T 36.8, HR 82, RR 18. Heart RRR w/o M/G/R, lungs CTAB, abdomen soft and nontender with fundus firm at U-2. Perineum intact and repair without edema. Bilateral LE's no edema. A: 18yo G1P)-->P1 PPD#2 s/p TSVD of viable male infant nicotine dependence Rubella equivocal P: Reviewed self care and warning s/sx. Encouraged continuation of PO ibuprofen and tylenol OTC and continue PNV while . Reviewed importance of smoking cessation. Pt declines Rx for nicotine patches at this time. MMR to be administered prior to discharge. Will discharge home today unless baby is not discharged, then will discharge to boarder mom status. Pt intends to f/u with myself at [facility] in 1 week for support visit or sooner PRN. Pt and both verbalized understanding and agree to above plan. They deny further questions or concerns at this time. Objective - Vital Signs/Intake & Output Intake & Output: Intake & Output 07/15/18 07/16/18 07/17/18 07/18/18 23:59 23:59 23:59 23:59 Intake Total 017.243 4320 Output Total 325 1100 Balance 120.322 8086 - Lab Results Fish Bones: 07/15/18 17:40
--- NOTE | 2018-07-18 10:01 | DISCHARGE SUMMARY ---
Discharge Summary Admit Date: 07/15/18 Discharge Date: 07/18/18 Discharging Provider: Yumiko Garcia CNM/KAVITHA Code Status: Attempt Resuscitation Condition at Discharge: Good Discharge Disposition: 01 Home, Self Care - DIAGNOSES Admission Diagnoses: 18yo @ 39.2wks gestation Pre-induction cervical ripening GBS negative Discharge Diagnoses with Status of Each Condition: 18yo s/p TSVD of viable male infant MMR administered Normal recovery - HPI History of Present Illness: Brief History: Carmen is a patient of [facility] who presented on 07/15/2018 for pre-induction cervical ripening at 39.2wks gestation. She received 2 doses of 50mcg misoprostol BC. Epidural placed per maternal request. SROM a moderate amount thick MSAF @ 0730 on 07/16/2018. She received pitocin via IV for a maximum infusion rate of 4mU/min for IOL. She progressed to c/c and spontaneously delivered a viable female infant at 1705 on 07/16/2018. Apgars 8/9. First degree R periclitoral laceration and 1st degree vaginal laceration noted and repaired in standard fashion under sterile conditions. EBL 150mL. She has been doing well in her course. She is ambulating without difficulty or pain. She is urinating without difficulty and her lochia is normal. She is without difficulty. She will be discharged home today on pp day number 2 with instructions to continue PNV while and to continue PO ibuprofen and tylenol OTC for pain management. MMR was admin istered prior to her discharge secondary to Equivocal immunity to rubella. She has been given precautions to call if she has any worsening fevers, chills, abdominal pain, increased vaginal bleeding or foul smelling vaginal lochia. She was counseled extensively about the importance of smoking cessation and declined Rx for nicotine patches at this time. Pt verbalized understanding and agrees to above plan. She denies further questions or concerns today. Return in 1 week for support visit or sooner PRN. - ALLERGIES Allergies/Adverse Reactions: Allergies Allergy/AdvReac Type Severity Reaction Status Date / Time Penicillins Allergy Unknown Hives Verified 07/15/18 22:57 dairy AdvReac Intermediate Nausea Uncoded 07/15/18 22:56 eggs AdvReac Intermediate Cramps Uncoded 07/15/18 22:57 gluten AdvReac Intermediate Cramps Uncoded 06/26/18 19:04 cantalope, honeydew AdvReac Unknown Cramps Uncoded 07/15/18 22:57 - LABS Result Diagrams: 07/15/18 17:40
[2018-07-18] MEDS ORDERED: MEASLES,MUMPS & RUBELLA VACC 0.5 ML VIAL SUBQ ONE (10:10)
[2018-07-18 17:03] VITALS: BP 114/81
--- NOTE | 2018-07-18 17:30 | Labor Flowsheet ---
Labor Flowsheet Datetime Report Generated by CPN: 07/18/2018 17:30 Datetime: 07/18/2018 16:48 VITAL SIGNS NBP Sys/Trina/Mean (mmHg): 114 : 81 : 89 Pulse: 96 LaborFlag: Labor Datetime: 07/16/2018 17:03 UTERINE ACTIVITY Monitor Mode: External Frequency (min): 2 Quality: Strong Pattern: Normal: <= 5 Contractions in 10 Minutes Resting Tone (Palpate): Relaxed Contraction Comments: pushing q2 min with decent ASSESSMENT A Monitor Mode: External US FHR Baseline Rate : 130 FHR Baseline Changes: No Baseline Change Variability: Moderate 6-25 bpm Accelerations: 15X15 Decelerations: None Category: Category I Datetime: 07/16/2018 16:44 Duration (sec): 40-60 Datetime: 07/16/2018 16:29 SpO2 (%): 100 Comments: for pt comfort. due to feeling lightheaded Oxygen Amount (LPM): 10 Oxygen Method: Non-Rebreather I/O Interventions: Coon Discontinued STAGE 2 Pushing: Coached on Pushing; Urge to Push Pushing Position: Pushing with Contractions Pushing Progress: Descent with Pushing Stage 2 Comments: pushing relieved anterior lip Datetime: 07/16/2018 16:25 VAGINAL EXAM Dilatation (cm): 9.0 Effacement (%): 100 Station: 1 Exam by: milagrosa Vaginal Bleeding: Normal Show Cervix, Consistency: Soft Cervix, Position: Anterior COMMUNICATION Communication: Provider at Bedside Communication Comments: estephania tangagrosa cnm Datetime: 07/16/2018 16:16 Respirations: 16 Datetime: 07/16/2018 16:15 Temperature (C): 36.7 Patient Position/Activity: Right Tilt Patient Care Comments: pt feels faint. VSS. protein drink given. LR ivf increased to 250ml/hr. Datetime: 07/16/2018 16:00 PAIN Pain Scale: 8 Pain Assessment Comments: sciatica pain now a 8/10 on right leg. will notify anethesia/morghan when available Datetime: 07/16/2018 15:46 MEDICATIONS Pitocin (milliunits): Increased to @ 5.0 Datetime: 07/16/2018 15:45 Monitor Interventions for UA: [place] Adjusted Datetime: 07/16/2018 14:54 Notification Reason: Labor Status Datetime: 07/16/2018 14:51 Stage of : Labor Datetime: 07/16/2018 14:34 Provider Notified (Name): recheck cervix in 2 hours Datetime: 07/16/2018 13:49 Anesthesia Level Check: T10- Umbilicus Datetime: 07/16/2018 13:45 Monitor Interventions for FHR: Ultrasound Adjusted Datetime: 07/16/2018 11:45 Pain Coping: Sleeping Datetime: 07/16/2018 09:40 Epidural Procedure Other: Pump Started Datetime: 07/16/2018 09:25 Epidural Procedure: Test Dose Datetime: 07/16/2018 09:23 PROCEDURE TIME OUT Procedure Verify: Correct Patient Identity; Correct Side and Site are Marked; Accurate Procedure Co nsent Form; Agreement on Procedure to be Done; Correct Patient Position; Addressed Need to Administer Antibiotics or Fluids for Irrigation; Safety Precautions Based on Patient History or Medication Use ANESTHESIA Epidural Positioning: Sitting Datetime: 07/16/2018 09:15 Anesthesia Comments: sitting on side of bed for epidural placement Datetime: 07/16/2018 08:24 Analgesics/Sedatives: Fentanyl (mcg) @ 50 Datetime: 07/16/2018 08:19 Pain Relief Measures: Pain Medication Given Comfort Measures: Breathing/Relaxation; Coaching Datetime: 07/16/2018 08:08 PATIENT CARE IV/Blood Work: IV Bolus Started Datetime: 07/16/2018 07:28 Membrane Status: Ruptured Membranes Rupture Method: Spontaneous Amniotic Fluid Color: Heavy Meconium Amniotic Fluid Amount: Moderate Nitrazine: Positive Datetime: 07/16/2018 06:16 Medication Comments: nicotine patch applied to right upper outer arm Datetime: 07/16/2018 06:00 Pain Presence: Intermittent Pain Type: Contraction Pain Location: Abdomen TEACHING Instructional Method: Verbal Plan of Care: Plan of Care Discussed Labor/Induction: Induction Datetime: 07/16/2018 04:00 Pain Management: Pain Scale/Goals; Comfort Measures Datetime: 07/16/2018 03:45 Actions for Decelerations: Side to Side Datetime: 07/16/2018 02:17 Vital Sign Comments: BP taken on non-dependent arm Datetime: 07/16/2018 02:00 MATERNAL ASSESSMENT Level of Consciousness: Fully Conscious Breath Sounds, Left: Clear and Equal Breath Sounds, Right: Clear and Equal Nausea/Vomiting: Denies Datetime: 07/15/2018 23:00 Unit Routine: Medications
== END 2018-07-18 17:25 | disposition home or self-care (01) | DRG 807 ==
LOC: WFO 17:07 → FBP 17:09 → WFO 18:21 → OBSVTOIN 07-16 08:18
PROVIDERS: ADMIT Registered Nurse; ATTEND Nurse Practitioner Obstetrics & Gynecology
PROC: 10E0XZZ Delivery of Products of Conception, External Approach (ICD-10-PCS; principal; 2018-07-16)
PROC: 0HQ9XZZ Repair Perineum Skin, External Approach (ICD-10-PCS; 2018-07-16)
DX: O77.0 Labor and delivery complicated by meconium in amniotic fluid (principal); Z37.0 Single live birth; O70.0 First degree perineal laceration during delivery; O99.344 Other mental disorders complicating childbirth; F41.9 Anxiety disorder, unspecified; F32.9 Major depressive disorder, single episode, unspecified; F43.10 Post-traumatic stress disorder, unspecified; O99.334 Smoking (tobacco) complicating childbirth; F17.210 Nicotine dependence, cigarettes, uncomplicated; Z3A.39 39 weeks gestation of pregnancy
CPT/HCPCS: 85025

== ENCOUNTER 2018-08-31 15:58 | Outpatient (CLI) | payer MEDICAID | END 2018-08-31 23:59 | disposition home or self-care (01) | LOC: LAB.R 15:58 | PROVIDERS: ATTEND Registered Nurse | DX: Z30.430 Encounter for insertion of intrauterine contraceptive device (principal) | CPT/HCPCS: 87491; 87591 ==

== ENCOUNTER 2018-10-27 08:00 | Outpatient (CLI) | payer MEDICAID ==
[2018-10-27 12:41] LABS: BASOPHILS # (AUTO) 0.1 10^3/uL (0.0-0.1); BASOPHILS % (AUTO) 1.4 %; EOSINOPHILS # (AUTO) 0.4 10^3/uL (0.0-0.7); EOSINOPHILS % (AUTO) 6.3 %; HGB - HEMOGLOBIN 13.6 g/dL (12.0-16.0); LYMPHOCYTES # (AUTO) 1.9 10^3/uL (1.5-3.5); LYMPHOCYTES % (AUTO) 29.3 %; MEAN CORPUSCULAR HEMOGLOBIN 28.6 pg (27.0-31.0); MEAN PLATELET VOLUME 8.5 fL (7.9-10.8); MONOCYTES # (AUTO) 0.4 10^3/uL (0.0-1.0); MONOCYTES % (AUTO) 5.6 %; NEUTROPHILS # (AUTO) 3.7 10^3/uL (1.5-6.6); NEUTROPHILS % (AUTO) 57.4 %; PLT - PLATELET COUNT 358 10^3/uL (130-450); RED BLOOD COUNT 4.77 10^6/uL (4.20-5.40); RED CELL DISTRIBUTION WIDTH 13.6 % (12.0-15.0); WHITE BLOOD COUNT 6.5 x10^3/uL (4.8-10.8)
[2018-10-27 13:03] LABS: ALBUMIN 4.1 g/dL (3.2-5.5); ALBUMIN/GLOBULIN RATIO 1.2 (1.0-2.2); ALKALINE PHOSPHATASE 72 IU/L (42-121); ALT ALANINE AMINOTRANSFERASE 23 IU/L (10-60); AST ASPARTATE AMINOTRANSFERASE 19 IU/L (10-42); BILIRUBIN,TOTAL 0.7 mg/dL (0.2-1.0); BUN - BLOOD UREA NITROGEN 10 mg/dL (6-20); CALCIUM 9.4 mg/dL (8.5-10.3); CARBON DIOXIDE - CO2 26 mmol/L (21-32); CHLORIDE 103 mmol/L (101-111); CREATININE 0.5 mg/dL (0.4-1.0); GFR - MDRD 157 (>89); GLUCOSE 86 mg/dL (70-100); SODIUM 138 mmol/L (135-145); TOTAL PROTEIN 7.4 g/dL (6.7-8.2)
[2018-10-27 13:10] LABS: CRP - C-REACTIVE PROTEIN < 1.0 mg/dL (0-1.0)
[2018-10-27 13:11] LABS: THYROID STIMULATING HORMONE 1.78 uIU/mL (0.34-5.60)
[2018-10-27 13:20] LABS: FOLATE 5.74 ng/mL (5.90 - >24.8)
[2018-10-27 13:22] LABS: RHEUMATOID FACTOR NEGATIVE (Negative)
[2018-10-30 21:06] LABS: ANA SCREEN NEGATIVE (NEGATIVE)
== END 2018-10-27 23:59 | disposition home or self-care (01) ==
LOC: LAB.N 08:00
PROVIDERS: ATTEND Nurse Practitioner
DX: R53.83 Other fatigue (principal); E55.9 Vitamin D deficiency, unspecified; Z83.2 Family history of diseases of the blood and blood-forming organs and certain disorders involving the immune mechanism
CPT/HCPCS: 36415; 80053; 82306; 82607; 82746; 84443; 85025; 85651; 86038; 86140; 86200; 86430

== ENCOUNTER 2018-10-27 08:55 | Outpatient (CLI) | payer MEDICAID ==
--- NOTE | 2018-10-27 10:40 | XRAY Report ---
Reason: CERVICAL RADICULOPATHY Procedure Date: 10/27/2018 Accession Number: [id number] / [id number] Procedure: XRN - Cervical Spine 2 View CPT Code: FULL RESULT: EXAM: CERVICAL SPINE RADIOGRAPHY EXAM DATE: 10/27/2018 09:19 AM. CLINICAL HISTORY: Cervical radiculopathy. COMPARISONS: None. TECHNIQUE: 3 views. FINDINGS: Alignment: Straightening of the normal cervical lordosis is noted, possibly positional. No spondylolisthesis or scoliosis. Bones: The cervical vertebral bodies and posterior elements are well visualized from the skull base through C7-T1. No fractures or bone lesions. Disks: Normal. Disk heights are maintained. Facets: Mild lateral mass hypertrophy at multiple levels accompanying mild multilevel facet arthropathy. Soft Tissues: Normal. No prevertebral soft tissue swelling. The visualized lung apices are clear. IMPRESSION: Mild degenerative changes. RADIA
== END 2018-10-27 08:56 | disposition home or self-care (01) ==
LOC: DI.N 08:55
PROVIDERS: ATTEND Nurse Practitioner
DX: M47.9 Spondylosis, unspecified (principal)
CPT/HCPCS: 72040

== ENCOUNTER 2018-10-27 18:00 | Outpatient (CLI) | payer MEDICAID ==
--- NOTE | 2018-10-27 22:39 | MRI Report ---
Reason: CERVICAL RADICULOPATHY,CERVICALGIA Procedure Date: 10/27/2018 Accession Number: [id number] / [id number] Procedure: MRI - Cervical Spine W/O CPT Code: FULL RESULT: EXAM: MRI CERVICAL SPINE WITHOUT CONTRAST EXAM DATE: 10/27/2018 07:09 PM. CLINICAL HISTORY: Chronic neck pain. COMPARISONS: CERVICAL SPINE 2 VIEW 10/27/2018 9:23 AM. TECHNIQUE: Multiplanar, multisequence T1-weighted and fluid-sensitive sequences of the cervical spine without contrast. Other: None. Findings: Relevant images are indicated (image number, series number). Limited evaluation posterior cranial fossa contents are unremarkable. Cerebellar tonsils are normally session. There is no abnormal cervical/upper thoracic cord signal, no suspicious marrow lesion, no prevertebral soft tissue swelling, no cervical paraspinal mass or collection. There is normal expected flow-voids of the partly visualized bilateral vertebral arteries. C1 C2-C4 C5: Unremarkable. C5-C6: Mild disk desiccation, small posterior disk bulge but no canal stenosis or neural foramina narrowing. C6-C7 through partly seen T3-T4 are unremarkable. Impressions: 1. Minimal/mild cervical spondylosis without canal stenosis or neural foraminal narrowing, otherwise negative. RADIA
== END 2018-10-27 18:01 | disposition home or self-care (01) ==
LOC: DI 18:00
PROVIDERS: ATTEND Nurse Practitioner
DX: M50.323 Other cervical disc degeneration at C6-C7 level (principal); R53.83 Other fatigue; E55.9 Vitamin D deficiency, unspecified; Z83.2 Family history of diseases of the blood and blood-forming organs and certain disorders involving the immune mechanism; M47.9 Spondylosis, unspecified
CPT/HCPCS: 36415; 72040; 72141; 80053; 82306; 82607; 82746; 84443; 85025; 85651; 86038; 86140; 86200; 86430

== ENCOUNTER 2018-12-24 11:53 | Emergency (ER) | payer MEDICAID ==
[2018-12-24 12:13] LABS: BILIRUBIN,URINE NEGATIVE (NEGATIVE); GLUCOSE, URINE (UA) NEGATIVE (NEGATIVE); KETONES,URINE (UA) NEGATIVE (NEGATIVE); LEUKOCYTE ESTERASE, URINE NEGATIVE (NEGATIVE); NITRITE,URINE NEGATIVE (NEGATIVE); OCCULT BLOOD,URINE NEGATIVE (NEGATIVE); PH,URINE 6.5 PH (5.0-7.5); PROTEIN,URINE NEGATIVE (NEGATIVE); UROBILINOGEN,URINE 0.2 (NORMAL) E.U./dL (NORMAL)
[2018-12-24 12:16] LABS: CLARITY,URINE CLEAR (CLEAR); HCG UR QUAL NEGATIVE
[2018-12-24 12:49] LABS: BASOPHILS # (AUTO) 0.1 10^3/uL (0.0-0.1); BASOPHILS % (AUTO) 1.4 %; EOSINOPHILS # (AUTO) 0.4 10^3/uL (0.0-0.7); EOSINOPHILS % (AUTO) 4.7 %; HGB - HEMOGLOBIN 13.7 g/dL (12.0-16.0); LYMPHOCYTES # (AUTO) 2.4 10^3/uL (1.5-3.5); LYMPHOCYTES % (AUTO) 30.2 %; MEAN CORPUSCULAR HEMOGLOBIN 28.7 pg (27.0-31.0); MEAN CORPUSCULAR HGB CONC 33.9 g/dL (32.0-36.0); MEAN CORPUSCULAR VOLUME 84.5 fL (81.0-99.0); MEAN PLATELET VOLUME 7.8 fL (7.9-10.8); MONOCYTES # (AUTO) 0.4 10^3/uL (0.0-1.0); MONOCYTES % (AUTO) 5.5 %; NEUTROPHILS # (AUTO) 4.6 10^3/uL (1.5-6.6); NEUTROPHILS % (AUTO) 58.2 %; PLT - PLATELET COUNT 345 10^3/uL (130-450); RED BLOOD COUNT 4.77 10^6/uL (4.20-5.40); RED CELL DISTRIBUTION WIDTH 13.2 % (12.0-15.0); WHITE BLOOD COUNT 7.9 x10^3/uL (4.8-10.8)
[2018-12-24 13:03] LABS: ALBUMIN 4.3 g/dL (3.2-5.5); ALBUMIN/GLOBULIN RATIO 1.2 (1.0-2.2); BILIRUBIN,TOTAL 0.4 mg/dL (0.2-1.0); CALCIUM 9.5 mg/dL (8.5-10.3); CREATININE 0.6 mg/dL (0.4-1.0); TOTAL PROTEIN 7.9 g/dL (6.7-8.2)
--- NOTE | 2018-12-24 15:13 | ED Physician Documentation ---
PD HPI FEMALE - Stated complaint Stated Complaint: CRAMPING - Chief complaint Chief Complaint: General - History obtained from History obtained from: Patient - History of Present Illness Timing - onset: How many weeks ago (2) Timing - duration: Weeks (2) Timing - details: Gradual onset, Still present, Waxing and waning Associated symptoms: Vaginal pain, Vaginal bleeding (just for one day), Vaginal discharge (states some mild vag discharge, which she thought related to the IUD. Has had the IUD since Aug without menses and has had intermittent mild discharge.) Contributing factors: IUD. No: Similar symptoms before: Has not had sx before Recently seen: Not recently seen Review of Systems Constitutional: denies: Fever, Chills, Myalgias Nose: denies: Rhinorrhea / runny nose, Congestion Throat: denies: Sore throat Respiratory: denies: Cough GI: reports: Abdominal Pain, Nausea. denies: Vomiting, Diarrhea : reports: Discharge (mild), Missed period (since her IUD in Aug with just a day of bleeding/spotting about 2 weeks ago.) Skin: denies: Rash, Lesions PD PAST MEDICAL HISTORY - Past Medical History Cardiovascular: None Respiratory: Asthma (exercise induced asthma as a teen) Neuro: Migraines, Other ("pinched nerve that radiates from low back to neck" Denies any diagnostic studies) Endocrine/Autoimmune: None GI: None : None Derm: None - Past Surgical History Past Surgical History: No - Present Medications Home Medications: Ambulatory Orders Medication Instructions Recorded Confirmed Fluconazole [Diflucan] 150 mg PO ONCE #1 tablet 12/24/18 Metronidazole [Flagyl] 500 mg PO BID #14 tablet 12/24/18 Naproxen 375 mg PO BID #20 tablet 12/24/18 Tramadol HCl 50 mg PO Q6H PRN #15 tablet 12/24/18 - Allergies Allergies/Adverse Reactions: Allergies Allergy/AdvReac Type Severity Reaction Status Date / Time Penicillins Allergy Unknown Hives Verified 12/24/18 12:01 dairy AdvReac Intermediate Nausea Uncoded 12/24/18 12:01 eggs AdvReac Intermediate Cramps Uncoded 12/24/18 12:01 gluten AdvReac Intermediate Cramps Uncoded 12/24/18 12:01 cantalope, honeydew AdvReac Unknown Cramps Uncoded 12/24/18 12:01 - Social History Does the pt smoke?: No Smoking Status: Current every day smoker Does the pt drink ETOH?: No Does the pt have substance abuse?: No - Immunizations Immunizations are current?: Yes - POLST Patient has POLST: No PD ED PE NORMAL - Vitals Vital signs reviewed: Yes - General General: Alert and oriented X 3, No acute distress, Well developed/nourished - Cardiac Cardiac: RRR, No murmur - Respiratory Respiratory: Clear bilaterally - Abdomen Abdomen: Normal bowel sounds, Soft, Non distended - Female Female : Sec Reporting Consultant present, Other (external normal. Vault with white milky discharge. IUD string present. Some cervical redness. ) - Rectal Rectal: Deferred - Back Back: No CVA TTP - Derm Derm: Normal color, Warm and dry Results - Vitals Vitals: Oxygen O2 Source Room air - Labs Labs: Microbiology 12/24/18 18:15 Wet Prep - Final Genital - Vaginal Laboratory Tests 12/24/18 12/24/18 12/24/18 12:05 12:45 12:45 WBC 7.9 RBC 4.77 Hgb 13.7 Hct 40.3 MCV 84.5 MCH 28.7 MCHC 33.9 RDW 13.2 Plt Count 345 MPV 7.8 L Neut # (Auto) 4.6 Lymph # (Auto) 2.4 Josephine # (Auto) 0.4 Eos # (Auto) 0.4 Baso # (Auto) 0.1 Absolute Nucleated RBC 0.00 Nucleated RBC % 0.0 Sodium 137 Potassium 3.8 Chloride 105 Carbon Dioxide 21 Anion Gap 11.0 BUN 10 Creatinine 0.6 Estimated GFR (MDRD) 127 Glucose 94 Calcium 9.5 Total Bilirubin 0.4 AST 18 ALT 21 Alkaline Phosphatase 65 Total Protein 7.9 Albumin 4.3 Globulin 3.6 Albumin/Globulin Ratio 1.2 Lipase 28 Urine Color YELLOW Urine Clarity CLEAR Urine pH 6.5 Ur Specific [place] 1.015 Urine Protein NEGATIVE Urine Glucose (UA) NEGATIVE Urine Ketones NEGATIVE Urine Occult Blood NEGATIVE Urine Nitrite NEGATIVE Urine Bilirubin NEGATIVE Urine Urobilinogen 0.2 (NORMAL) Ur Leukocyte Esterase NEGATIVE Ur Microscopic Review NOT INDICATED Urine Culture Comments NOT INDICATED Urine HCG, Qual NEGATIVE Chlam trachomat DNA PCR N.gonorrhoeae DNA (PCR) T. vaginalis (PCR) 12/24/18 18:15 WBC RBC Hgb Hct MCV MCH MCHC RDW Plt Count MPV Neut # (Auto) Lymph # (Auto) Josephine # (Auto) Eos # (Auto) Baso # (Auto) Absolute Nucleated RBC Nucleated RBC % Sodium Potassium Chloride Carbon Dioxide Anion Gap BUN Creatinine Estimated GFR (MDRD) Glucose Calcium Total Bilirubin AST ALT Alkaline Phosphatase Total Protein Albumin Globulin Albumin/Globulin Ratio Lipase Urine Color Urine Clarity Urine pH Ur Specific [place] Urine Protein Urine Glucose (UA) Urine Ketones Urine Occult Blood Urine Nitrite Urine Bilirubin Urine Urobilinogen Ur Leukocyte Esterase Ur Microscopic Review Urine Culture Comments Urine HCG, Qual Chlam trachomat DNA PCR NEGATIVE N.gonorrhoeae DNA (PCR) NEGATIVE T. vaginalis (PCR) NEGATIVE - Rads (name of study) pelvic U/S Radiology: Prelim report reviewed, See rad report PD MEDICAL DECISION MAKING - ED course Complexity details: reviewed results (pelvic U/S showing 2.5 cm hemorrhagic cyst without free fluid. This could be causing her cramping. IUD in place. Did pelvic and appeared like BV, so will treat that as well. ), considered differential (will get UA, HCG, and pelvic U/S to establish that there is not any , eval ovarian flow and abd such as), d/w patient Departure - Departure Disposition: 01 Home, Self Care Clinical Impression: Bacterial vaginitis, Hemorrhagic ovarian cyst Condition: Stable Record reviewed to determine appropriate education?: Yes Instructions: ED Cyst Ovarian, ED Vaginosis Bacterial Prescriptions: Fluconazole [Diflucan] 150 mg PO ONCE #1 tablet Metronidazole [Flagyl] 500 mg PO BID #14 tablet Naproxen 375 mg PO BID #20 tablet Tramadol HCl 50 mg PO Q6H PRN #15 tablet PRN Reason: Pain Comments: Stay well-hydrated. Use some naproxen anti-inflammatory twice daily for the next week or so. Add Tylenol or tramadol if needed for pains. The pain from the hemorrhagic cyst should decrease steadily over the next few days and improve over several days to week. Follow-up with your primary care in a few weeks regarding that and they may want to repeat the ultrasound to see if the cyst has resolved and make sure it has not increased. He also looks like some vaginitis with likely bacterial component though there may be some yeast as well. We gave you an antifungal tablet here. Take the metronidazole antibiotic twice daily for a week and then take another antifungal tablet at the end of that week. Recheck if not improved over the next several days as well regarding that. Discharge Date/Time: 12/24/18 18:42
[2018-12-24] MEDS ORDERED: NAPROXEN 250 MG TABLET PO STA (15:31)
[2018-12-24] MEDS ORDERED: HYDROcod/ACETAM 5/325 MG TABLET PO STA (15:31)
--- NOTE | 2018-12-24 17:50 | Ultrasound Report ---
Reason: pelvic pain 2 weeks; IUD since Aug Procedure Date: 12/24/2018 Accession Number: [id number] / [id number] Procedure: US - Pelvic w/Transvag+Doppler Ltd CPT Code: FULL RESULT: EXAM: PELVIC ULTRASOUND EXAM DATE: 12/24/2018 05:32 PM. CLINICAL HISTORY: Pelvic pain 2 weeks; IUD since August. COMPARISON: None. TECHNIQUE: Realtime transabdominal pelvic scan performed to identify the uterus and adnexa and as an overview of other pelvic structures, followed by transvaginal scan to provide greater detail of the uterus and adnexa, with static image documentation. FINDINGS: Uterus: 8.4 x 3.1 x 5.0 cm, volume 68 cc. Anteverted position. Normal overall size and echotexture. Masses: None. Endometrium: 3.2 mm. No hypervascular nodules. IUD position centrally within the uterine cavity. Cervix: Unremarkable. Right Ovary: 2.5 x 1.6 x 2.2 cm, volume 4.6 cc. Normal echotexture and blood flow. Left Ovary: 3.1 x 2.4 x 2.5 cm, volume 9.7 cc. There is a 2.8 cm cyst containing debris within the left ovary. Normal ovarian blood flow seen. Free Fluid: None. Other: None. IMPRESSION: 1. Hemorrhagic 2.8 cm left ovarian cyst. 2. Normal uterus and right ovary noting satisfactory IUD position. RADIA
[2018-12-24] MEDS ORDERED: FLUCONAZOLE 100 MG TABLET PO STA (18:24)
[2018-12-24] MEDS ORDERED: metroNIDAZOLE 250 MG TABLET PO STA (18:24)
[2018-12-24 18:42] VITALS: BP 128/77
[2018-12-24 21:33] LABS: TRICHOMONAS VAGINALIS DNA NEGATIVE (NEGATIVE)
== END 2018-12-24 18:42 | disposition home or self-care (01) ==
LOC: ED 11:53
DX: N76.0 Acute vaginitis (principal); B96.89 Other specified bacterial agents as the cause of diseases classified elsewhere; N83.202 Unspecified ovarian cyst, left side; Z97.5 Presence of (intrauterine) contraceptive device; F17.200 Nicotine dependence, unspecified, uncomplicated
CPT/HCPCS: 36415; 76830; 76856; 80053; 81003; 81025; 83690; 85025; 87210; 87491; 87591; 87661; 93976; 99283; 99284; A9270; 81001; 87086

== ENCOUNTER 2019-01-08 09:40 | Outpatient (CLI) | payer MEDICAID ==
[2019-01-08 20:49] LABS: CANDIDA GROUP DNA NEGATIVE (NEGATIVE); CANDIDA KRUSEI DNA NEGATIVE (NEGATIVE); TRICHOMONAS VAGINALIS DNA NEGATIVE (NEGATIVE)
== END 2019-01-08 23:59 | disposition home or self-care (01) ==
LOC: LAB.R 09:40
PROVIDERS: ATTEND Nurse Practitioner Obstetrics & Gynecology
DX: R10.2 Pelvic and perineal pain (principal); N83.292 Other ovarian cyst, left side
CPT/HCPCS: 87661; 87801

== ENCOUNTER 2019-07-03 08:00 | Outpatient (CLI) | payer MEDICAID, OTHER ==
[2019-07-04 20:36] LABS: CANDIDA GROUP DNA NEGATIVE (NEGATIVE); CANDIDA KRUSEI DNA NEGATIVE (NEGATIVE); TRICHOMONAS VAGINALIS DNA NEGATIVE (NEGATIVE)
== END 2019-07-03 23:59 | disposition home or self-care (01) ==
LOC: LAB.R 08:00
PROVIDERS: ATTEND Nurse Practitioner Obstetrics & Gynecology
DX: N76.0 Acute vaginitis (principal)
CPT/HCPCS: 87661; 87801

== ENCOUNTER 2019-08-07 15:56 | Emergency (ER) | payer MEDICAID ==
--- NOTE | 2019-08-07 16:20 | ED Physician Documentation ---
PD HPI ABD PAIN - Stated complaint Stated Complaint: ABD CRAMPING - Chief complaint Chief Complaint: Abd Pain - History obtained from History obtained from: Patient - History of Present Illness Timing - onset: Other (19-year-old G3, P1 at 6 weeks 3 days gestation by LMP presents with 2 days of left pelvic cramping without bleeding.) Review of Systems Ten Systems: 10 systems reviewed and negative Constitutional: reports: Reviewed and negative Throat: reports: Reviewed and negative Cardiac: reports: Reviewed and negative Respiratory: reports: Reviewed and negative PD PAST MEDICAL HISTORY - Past Medical History Past Medical History: Yes Cardiovascular: None Respiratory: Asthma Neuro: Migraines, Other Endocrine/Autoimmune: None GI: None : None Derm: None - Past Surgical History Past Surgical History: No - Present Medications Home Medications: Ambulatory Orders Medication Instructions Recorded Confirmed No Known Home Medications 08/07/19 08/07/19 - Allergies Allergies/Adverse Reactions: Allergies Allergy/AdvReac Type Severity Reaction Status Date / Time Penicillins Allergy Unknown Hives Verified 08/07/19 16:06 dairy AdvReac Intermediate Nausea Uncoded 08/07/19 16:06 eggs AdvReac Intermediate Cramps Uncoded 08/07/19 16:06 gluten AdvReac Intermediate Cramps Uncoded 08/07/19 16:06 cantalope, honeydew AdvReac Unknown Cramps Uncoded 08/07/19 16:06 - Social History Does the pt smoke?: No Smoking Status: Never smoker Does the pt drink ETOH?: No Does the pt have substance abuse?: No - Family History Family history: reports: Non contributory - Immunizations Immunizations are current?: Yes - POLST Patient has POLST: No PD ED PE NORMAL - Vitals Vital signs reviewed: Yes - General General: Alert and oriented X 3, No acute distress - HEENT HEENT: PERRL, EOMI - Neck Neck: Supple, no meningeal sign, No bony TTP - Cardiac Cardiac: RRR, No murmur - Respiratory Respiratory: No respiratory distress, Clear bilaterally - Abdomen Abdomen: Non tender - Female Female : Other (On bedside ultrasound I there is something in the uterus and I am 90% positive I see a gestational sac, but not confident enough not to order a formal ultrasound.) - Back Back: No CVA TTP, No spinal TTP - Derm Derm: Normal color, No rash - Neuro Neuro: Alert and oriented X 3, Normal speech Results - Vitals Vitals: Vital Signs - 24 hr 08/07/19 08/07/19 08/07/19 16:02 19:45 20:32 Temperature 36.9 C 37.0 C Heart Rate 104 H 86 93 Respiratory 18 18 18 Rate Blood Pressure 130/72 137/74 H 119/79 O2 Saturation 99 100 100 Oxygen O2 Source Room air - Labs Labs: Laboratory Tests 08/07/19 08/07/19 16:35 16:35 HCG, Quant [id number] Blood Type A POSITIVE PD MEDICAL DECISION MAKING - ED course ED course: 19-year-old woman with left pelvic cramping found to have intrauterine gestational sac and no evidence of ectopic, follow-up ultrasound was advised in fact she already has one scheduled next week. Departure - Departure Disposition: 01 Home, Self Care Clinical Impression: Threatened Condition: Good Record reviewed to determine appropriate education?: Yes Instructions: ED Miscarriage Poss Comments: There is no evidence of ectopic , we do not see a heartbeat on the ultrasound today but that is not necessarily abnormal at this early stage of . Follow-up with your OB, consider repeat ultrasound in 1 week to assess viability going forward. Return for new or worsening symptoms. Discharge Date/Time: 08/07/19 20:32
[2019-08-07] MEDS ORDERED: ACETAMINOPHEN 325 MG TABLET PO STA (18:04)
--- NOTE | 2019-08-07 20:03 | Ultrasound Report ---
Reason: L pelvic pain 6w3d Procedure Date: 08/07/2019 Accession Number: [id number] / [id number] Procedure: US - OB First Trimester CPT Code: Final Report FULL RESULT: EXAM: FIRST TRIMESTER OBSTETRIC ULTRASOUND (Less than 11 weeks) EXAM DATE: 08/07/2019 07:36 PM. CLINICAL HISTORY: L pelvic pain 6w3d. LMP: Unknown. COMPARISONS: None. TECHNIQUE: Transabdominal and transvaginal ultrasound examination with static image documentation. ASSESSMENT: Gestational Sac: Single intrauterine. Mean gestational sac diameter: 9 mm = 5 weeks/5 days. Embryo: CRL (crown-rump length) 3.7 mm = 6 weeks/ 0 days. Cardiac activity: 105 beats per minute. (Not optimally evaluated) Yolk sac: 3.4 mm. Other: No perigestational fluid collection demonstrated. MATERNAL STRUCTURES: Uterus: Anteverted. An intramural fibroid noted at the anterior uterus measuring 2.2 x 1.9 x 2.4 cm. Cervix: Closed. Right Ovary/Adnexa: The ovary measures 2.2 x 2.8 x 2 cm, volume 6.6 cc. Unremarkable. Left Ovary/Adnexa: The ovary measures 3.2 x 1.8 x 3.1 cm, volume 9.8 cc. Unremarkable. A corpus luteal cyst noted. Free Fluid: None. Other: None. IMPRESSION: 1. Single intrauterine at EGA 6 weeks with TERRENCE 04/01/20 based on crown-rump length, of uncertain viability. 2. Faint cardiac activity, not optimally assessed due to very early gestational age. 3. Unremarkable ovaries. A repeat ultrasound is recommended in 2 weeks for viability. RADIA
[2019-08-07 20:32] VITALS: BP 119/79
== END 2019-08-07 20:32 | disposition home or self-care (01) ==
LOC: ED 15:56
DX: O20.0 Threatened abortion (principal); Z3A.01 Less than 8 weeks gestation of pregnancy
CPT/HCPCS: 36415; 76801; 76817; 84702; 86900; 86901; 99284; A9270

== ENCOUNTER 2019-08-13 08:00 | Outpatient (CLI) | payer MEDICAID | END 2019-08-13 23:59 | disposition home or self-care (01) | LOC: LAB.R 08:00 | PROVIDERS: ATTEND Nurse Practitioner Obstetrics & Gynecology | DX: R10.9 Unspecified abdominal pain (principal) | CPT/HCPCS: 87086 ==

== ENCOUNTER 2019-08-16 06:57 | Outpatient (CLI) | payer MEDICAID ==
--- NOTE | 2019-08-16 10:59 | Ultrasound Report ---
Reason: TEST POSITIVE Procedure Date: 08/16/2019 Accession Number: [id number] / [id number] Procedure: US - OB First Trimester CPT Code: Final Report FULL RESULT: EXAM: FIRST TRIMESTER OBSTETRIC ULTRASOUND (Less than 11 weeks) EXAM DATE: 08/16/2019 07:46 AM. CLINICAL HISTORY: test positive. LMP: 06/23/2019. COMPARISONS: OB FIRST TRIMESTER 08/07/2019 6:51 PM. TECHNIQUE: Transabdominal and transvaginal ultrasound examination with static image documentation. CLINICAL DATES: EGA 7 weeks 2 days with TERRENCE 04/01/2020 based on first ultrasound. ASSESSMENT: Gestational Sac: Single intrauterine. Mean gestational sac diameter: 18.7 mm = 6 weeks 6 days. Embryo: CRL (crown-rump length) 10.4 mm = 7 weeks 1 day. Cardiac activity: 145 beats per minute. Yolk sac: 3.3 mm. Amniotic fluid: Not accurately assessed at this gestational age. Early placenta: Not visible at this gestational age. Other: No perigestational fluid collection demonstrated. MATERNAL STRUCTURES: Uterus: Anteverted. Unremarkable. Cervix: Closed. Right Ovary/Adnexa: The ovary measures 1.7 x 1.5 x 1.2 cm, volume 1.6 cc. Unremarkable. Left Ovary/Adnexa: The ovary measures 2.6 x 2.6 x 1.8 cm, volume 6.4 cc. Unremarkable. Free Fluid: None. Other: None. IMPRESSION: 1. Single viable intrauterine at EGA 7 weeks 1 day with TERRENCE 04/02/2020 based on crown-rump length, which is concordant with LMP. 2. Assigned dating is TERRENCE 03/29/2020 based on LMP. SAMMI
== END 2019-08-16 06:58 | disposition home or self-care (01) ==
LOC: DI 06:57
PROVIDERS: ATTEND Obstetrics & Gynecology
DX: Z32.01 Encounter for pregnancy test, result positive (principal)
CPT/HCPCS: 76801; 76817

== ENCOUNTER 2019-08-29 08:00 | Outpatient (CLI) | payer MEDICAID ==
[2019-08-29 12:15] LABS: BASOPHILS # (AUTO) 0.1 10^3/uL (0.0-0.1); BASOPHILS % (AUTO) 0.6 %; EOSINOPHILS # (AUTO) 0.1 10^3/uL (0.0-0.7); EOSINOPHILS % (AUTO) 1.3 %; HGB - HEMOGLOBIN 13.1 g/dL (12.0-16.0); LYMPHOCYTES # (AUTO) 2.1 10^3/uL (1.5-3.5); LYMPHOCYTES % (AUTO) 22.3 %; MEAN CORPUSCULAR HEMOGLOBIN 27.5 pg (27.0-31.0); MEAN CORPUSCULAR HGB CONC 33.2 g/dL (32.0-36.0); MEAN CORPUSCULAR VOLUME 82.8 fL (81.0-99.0); MEAN PLATELET VOLUME 10.6 fL (7.9-10.8); MONOCYTES # (AUTO) 0.5 10^3/uL (0.0-1.0); MONOCYTES % (AUTO) 4.8 %; NEUTROPHILS # (AUTO) 6.7 10^3/uL (1.5-6.6); NEUTROPHILS % (AUTO) 70.7 %; PLT - PLATELET COUNT 294 10^3/uL (130-450); RED BLOOD COUNT 4.77 10^6/uL (4.20-5.40); RED CELL DISTRIBUTION WIDTH 12.6 % (12.0-15.0); WHITE BLOOD COUNT 9.5 x10^3/uL (4.8-10.8)
[2019-08-30 12:17] LABS: HIV AG/AB 4TH GEN NON-REACTIVE (NON-REACTIVE)
[2019-08-30 12:19] LABS: HEPATITIS B SURFACE ANTIGEN NON-REACTIVE (NON-REACTIVE)
== END 2019-08-29 23:59 | disposition home or self-care (01) ==
LOC: LAB.N 08:00
PROVIDERS: ATTEND Nurse Practitioner Obstetrics & Gynecology
DX: Z36.8A Encounter for antenatal screening for other genetic defects (principal); Z36.0 Encounter for antenatal screening for chromosomal anomalies
CPT/HCPCS: 36415; 81599; 85025; 86592; 86762; 86850; 86900; 86901; 87340; 87389; 87522

== ENCOUNTER 2019-10-19 08:00 | Outpatient (CLI) | payer MEDICAID ==
[2019-10-19 12:54] LABS: BILIRUBIN,URINE NEGATIVE (NEGATIVE); GLUCOSE, URINE (UA) NEGATIVE (NEGATIVE); KETONES,URINE (UA) NEGATIVE (NEGATIVE); LEUKOCYTE ESTERASE, URINE TRACE (NEGATIVE); NITRITE,URINE NEGATIVE (NEGATIVE); OCCULT BLOOD,URINE NEGATIVE (NEGATIVE); PROTEIN,URINE NEGATIVE (NEGATIVE); UROBILINOGEN,URINE 0.2 (NORMAL) E.U./dL (NORMAL)
[2019-10-19 12:57] LABS: CLARITY,URINE CLEAR (CLEAR)
[2019-10-19 13:10] LABS: BACTERIA,URINE Few /HPF (None Seen); RBC,URINE 0-5 /HPF (0-5); SQUAMOUS EPITHELIAL CELL,UR FEW Squamous (<= Few)
[2019-10-19 19:03] LABS: CANDIDA GROUP DNA NEGATIVE (NEGATIVE); CANDIDA KRUSEI DNA NEGATIVE (NEGATIVE); TRICHOMONAS VAGINALIS DNA NEGATIVE (NEGATIVE)
[2019-10-19 19:13] LABS: TRICHOMONAS VAGINALIS DNA NEGATIVE (NEGATIVE)
== END 2019-10-19 23:59 | disposition home or self-care (01) ==
LOC: LAB.WCP 08:00
PROVIDERS: ATTEND Obstetrics & Gynecology
DX: O26.899 Other specified pregnancy related conditions, unspecified trimester (principal); R10.2 Pelvic and perineal pain; Z3A.00 Weeks of gestation of pregnancy not specified
CPT/HCPCS: 81001; 87086; 87491; 87591; 87661; 87801

== ENCOUNTER 2019-10-19 09:54 | Outpatient (CLI) | payer MEDICAID ==
--- NOTE | 2019-10-20 01:52 | Ultrasound Report ---
Reason: PELVIC PAIN Procedure Date: 10/19/2019 Accession Number: [id number] / [id number] Procedure: US - OB F/U or Repeat CPT Code: Final Report FULL RESULT: EXAM: FOLLOW-UP OBSTETRICAL ULTRASOUND EXAM DATE: 10/19/2019 11:09 AM. CLINICAL HISTORY: PELVIC PAIN. COMPARISON: OB FIRST TRIMESTER 08/16/2019 7:06 AM OB FIRST TRIMESTER 08/07/2019 6:51 PM. TECHNIQUE: Real-time sonographic evaluation of the fetus performed by the circle beveler. Multiple circulation sales representative static images were saved for review. DATING: Established EGA 16 weeks 6 days with TERRENCE 03/29/2020 based on LMP. EGA 16 weeks 3 days with TERRENCE 04/01/2020 based on prior ultrasound. EGA 16 weeks 5 days with TERRENCE 03/30/2020 based on the current ultrasound. GENERAL EVALUATION Wan . Cardiac activity: 136 bpm. movement: Visualized. Presentation: Cephalic. Placenta: Anterior position. Amniotic fluid: Normal. FLAKITO 10.4 cm. MVP 4.8 cm. BIOMETRY Bi-Parietal Diameter (BPD): 3.4 cm, 16 weeks 4 days Head Circumference (HC): 12.7 cm, 16 weeks 3 days Abdominal Circumference (AC): 10.9 cm, 16 weeks 6 days Femur Length (FL): 2.2 cm, 16 weeks 5 days Estimated Weight: 166 g, 32.8 percentile for 16 weeks 6 days. MATERNAL STRUCTURES Uterus: Possible anterior fibroid measuring 4.6 x 3.5 x 4.7 cm. Right ovary: 2.3 x 1.1 x 2.7 cm, 3.5 cc. No adnexal abnormality seen. Left ovary: 3.6 x 1.4 x 3.3 cm, 8.6 cc. No adnexal abnormality seen. Cervix: 3.4 cm on transabdominal images. IMPRESSION: 1. Wan live intrauterine with gestational age 16 weeks 6 days based on LMP. 2. Estimated weight is within expected limits for assigned dating. 3. Normal interval growth compared to 08/07/2019. RADIA
== END 2019-10-19 09:55 | disposition home or self-care (01) ==
LOC: DI 09:54
PROVIDERS: ATTEND Obstetrics & Gynecology
DX: O99.89 Other specified diseases and conditions complicating pregnancy, childbirth and the puerperium (principal); R10.2 Pelvic and perineal pain
CPT/HCPCS: 76816; 81001; 87086; 87491; 87591; 87661; 87801

== ENCOUNTER 2019-10-21 01:00 | Emergency (ER) | payer MEDICAID ==
--- NOTE | 2019-10-21 01:02 | ED Physician Documentation ---
PD HPI FEMALE - Stated complaint Stated Complaint: AB PX - History obtained from History obtained from: Patient - History of Present Illness Timing - onset: How many days ago (1-2) Timing - duration: Days Timing - details: Gradual onset Pain level max: 6 Associated symptoms: Abdominal pain. No: Fever, Vaginal bleeding, Vaginal discharge Contributing factors: OB-HOTEL ASSISTANT GENERAL MANAGER History: G (2), P (1) Similar symptoms before: Has not had sx before Recently seen: Clinic - Additional information Additional information: 17 weeks , c/o 1.5 days RLQ pain, gradual onset and steadily worsening. exacerbated with movement and palpation Review of Systems Constitutional: reports: Reviewed and negative Cardiac: reports: Reviewed and negative Respiratory: reports: Reviewed and negative GI: reports: Abdominal Pain. denies: Nausea, Vomiting, Diarrhea : reports: Frequency. denies: Dysuria PD PAST MEDICAL HISTORY - Past Medical History Cardiovascular: None Respiratory: Asthma Neuro: Migraines, Other Endocrine/Autoimmune: None GI: None : None Derm: None - Past Surgical History Past Surgical History: No - Present Medications Home Medications: Ambulatory Orders Medication Instructions Recorded Confirmed No Known Home Medications 08/07/19 10/21/19 - Allergies Allergies/Adverse Reactions: Allergies Allergy/AdvReac Type Severity Reaction Status Date / Time Penicillins Allergy Unknown Hives Verified 08/07/19 16:06 dairy AdvReac Intermediate Nausea Uncoded 08/07/19 16:06 eggs AdvReac Intermediate Cramps Uncoded 08/07/19 16:06 gluten AdvReac Intermediate Cramps Uncoded 08/07/19 16:06 cantalope, honeydew AdvReac Unknown Cramps Uncoded 08/07/19 16:06 - Social History Does the pt smoke?: No Smoking Status: Never smoker Does the pt drink ETOH?: No Does the pt have substance abuse?: No - Immunizations Immunizations are current?: Yes - POLST Patient has POLST: No PD ED PE NORMAL - Vitals Vital signs reviewed: Yes - General General: Alert and oriented X 3, No acute distress, Well developed/nourished - Cardiac Cardiac: RRR, No murmur - Respiratory Respiratory: No respiratory distress, Clear bilaterally - Abdomen Abdomen: Soft - Back Back: No CVA TTP - Derm Derm: Normal color, Warm and dry, No rash - Extremities Extremities: No edema PD ED PE EXPANDED - Abdomen Abdomen: Tender to palpation, RLQ. No: Rebound, Guarding Results - Vitals Vitals: Oxygen O2 Source Room air - Labs Labs: Laboratory Tests 10/21/19 10/21/19 10/21/19 01:36 01:36 02:00 WBC 9.8 RBC 4.32 Hgb 12.4 Hct 36.5 L MCV 84.5 MCH 28.7 MCHC 34.0 RDW 13.3 Plt Count 280 MPV 9.6 Neut # (Auto) 7.2 H Lymph # (Auto) 2.0 [place] # (Auto) 0.5 Eos # (Auto) 0.1 Baso # (Auto) 0.0 Absolute Nucleated RBC 0.00 Nucleated RBC % 0.0 Sodium 134 L Potassium 3.5 Chloride 106 Carbon Dioxide 20 L Anion Gap 8.0 BUN 6 Creatinine 0.4 Estimated GFR (MDRD) 201 Glucose 92 Calcium 8.9 Total Bilirubin 0.5 AST 15 ALT 17 Alkaline Phosphatase 53 Total Protein 7.3 Albumin 3.9 Globulin 3.4 Albumin/Globulin Ratio 1.1 Lipase 20 L Urine Color YELLOW Urine Clarity CLEAR Urine pH 7.5 Ur Specific [place] 1.010 Urine Protein NEGATIVE Urine Glucose (UA) NEGATIVE Urine Ketones NEGATIVE Urine Occult Blood NEGATIVE Urine Nitrite NEGATIVE Urine Bilirubin NEGATIVE Urine Urobilinogen 0.2 (NORMAL) Ur Leukocyte Esterase TRACE H Urine RBC None Seen Urine WBC 4-5 Ur Squamous Epith Cells MOD Squamous H Urine Bacteria Rare Urine Mucus Few Strands Ur Microscopic Review INDICATED Urine Culture Comments NOT INDICATED - Rads (name of study) RLQ US Radiology: Prelim report reviewed, See rad report CT A/P w/o Radiology: Prelim report reviewed, See rad report PD MEDICAL DECISION MAKING - ED course Complexity details: reviewed results, re-evaluated patient, considered differential, d/w patient ED course: after US and blood tests, UA resulted, reevaluated and continues to have same RLQ pain and tenderness on exam. d/w Dr. Ryan (bricklayer tender button grader), recommends CT A/P w/o. this was performed and results are without significant abnormality or diagnostic result. patient is comfortable enough to be discharged, will f/u w/ bricklayer tender, return if worse Departure - Departure Disposition: 01 Home, Self Care Clinical Impression: Abdominal pain affecting Condition: Good Instructions: ED Pelvic Pain Preg UKO 2 or 3 Tri Follow-Up: Lulú Deleon MD [Provider Admit Priv/Credential] - Discharge Date/Time: 10/21/19 05:50
[2019-10-21 01:46] LABS: BASOPHILS % (AUTO) 0.4 %; EOSINOPHILS # (AUTO) 0.1 10^3/uL (0.0-0.7); EOSINOPHILS % (AUTO) 1.1 %; HGB - HEMOGLOBIN 12.4 g/dL (12.0-16.0); LYMPHOCYTES % (AUTO) 20.1 %; MEAN CORPUSCULAR HEMOGLOBIN 28.7 pg (27.0-31.0); MEAN CORPUSCULAR VOLUME 84.5 fL (81.0-99.0); MEAN PLATELET VOLUME 9.6 fL (7.9-10.8); MONOCYTES # (AUTO) 0.5 10^3/uL (0.0-1.0); MONOCYTES % (AUTO) 4.9 %; NEUTROPHILS # (AUTO) 7.2 10^3/uL (1.5-6.6); NEUTROPHILS % (AUTO) 73.2 %; PLT - PLATELET COUNT 280 10^3/uL (130-450); RED BLOOD COUNT 4.32 10^6/uL (4.20-5.40); RED CELL DISTRIBUTION WIDTH 13.3 % (12.0-15.0); WHITE BLOOD COUNT 9.8 x10^3/uL (4.8-10.8)
[2019-10-21 01:57] LABS: ALBUMIN 3.9 g/dL (3.2-5.5); ALBUMIN/GLOBULIN RATIO 1.1 (1.0-2.2); BILIRUBIN,TOTAL 0.5 mg/dL (0.2-1.0); CALCIUM 8.9 mg/dL (8.5-10.3); CREATININE 0.4 mg/dL (0.4-1.0); TOTAL PROTEIN 7.3 g/dL (6.7-8.2)
[2019-10-21 02:04] LABS: BILIRUBIN,URINE NEGATIVE (NEGATIVE); GLUCOSE, URINE (UA) NEGATIVE (NEGATIVE); KETONES,URINE (UA) NEGATIVE (NEGATIVE); LEUKOCYTE ESTERASE, URINE TRACE (NEGATIVE); NITRITE,URINE NEGATIVE (NEGATIVE); OCCULT BLOOD,URINE NEGATIVE (NEGATIVE); PH,URINE 7.5 PH (5.0-7.5); PROTEIN,URINE NEGATIVE (NEGATIVE); UROBILINOGEN,URINE 0.2 (NORMAL) E.U./dL (NORMAL)
[2019-10-21 02:05] LABS: CLARITY,URINE CLEAR (CLEAR)
[2019-10-21 02:12] LABS: BACTERIA,URINE Rare /HPF (None Seen); MUCUS,URINE Few Strands; RBC,URINE None Seen /HPF (0-5); SQUAMOUS EPITHELIAL CELL,UR MOD Squamous (<= Few)
--- NOTE | 2019-10-21 03:17 | Ultrasound Report ---
Reason: RLQ pain Procedure Date: 10/21/2019 Accession Number: [id number] / [id number] Procedure: US - Abdomen Limited CPT Code: Final Report FULL RESULT: EXAM: ABDOMEN ULTRASOUND LIMITED EXAM DATE: 10/21/2019 03:06 AM. CLINICAL HISTORY: . RLQ pain. COMPARISON: None. TECHNIQUE: Real-time scanning was performed with static images obtained. FINDINGS: The appendix is not visualized. Marked compression was tolerated. No lymphadenopathy is seen. No fluid collection is noted. No bowel wall thickening is seen. There appears to be a dilated right fallopian tube measuring up to 1.3 cm in diameter. Right ovary is not well seen. heart rate is 171 bpm. IMPRESSION: 1. Appendix is not visualized. No secondary findings of appendicitis are seen. 2. Right hydrosalpinx measuring up to 1.3 cm in diameter. There is focal pain in this area. RADIA
[2019-10-21 05:08] VITALS: BP 108/77
--- NOTE | 2019-10-21 05:12 | CT Report ---
Reason: RLQ pain, tenderness Procedure Date: 10/21/2019 Accession Number: [id number] / [id number] Procedure: CT - Abdomen/Pelvis WO CPT Code: Final Report FULL RESULT: EXAM: CT ABDOMEN AND PELVIS EXAM DATE: 10/21/2019 05:01 AM. CLINICAL HISTORY: RLQ pain, tenderness. COMPARISONS: ABDOMEN LIMITED 10/21/2019 2:18 AM. TECHNIQUE: Routine helical CT imaging was performed through the abdomen and pelvis. IV contrast: None. Enteric contrast: No. Reconstructions: Coronal and sagittal. In accordance with CT protocol optimization, one or more of the following dose reduction techniques were utilized for this exam: automated exposure control, adjustment of mA and/or KV based on patient size, or use of iterative reconstructive technique. FINDINGS: Lung Bases: Unremarkable. Liver: No focal abnormality seen on this noncontrast examination. Gallbladder/Bile Ducts: Unremarkable. Spleen: Normal. Pancreas: Normal. Adrenal Glands: Normal. Kidneys: Normal. No masses or hydronephrosis. Peritoneal Cavity/Bowel: No bowel obstruction seen. No free air or free fluid. No diverticulitis. Normal-sized mesenteric lymph nodes. Appendix is partially seen and visualized portions appear normal. Pelvic Organs: Intrauterine fetus is noted. The visualized pelvic organs are otherwise unremarkable. Right hydrosalpinx seen sonographically is not well seen on the CT. Vasculature: No aneurysms or other significant abnormality. Bones: No significant abnormality. Other: None. IMPRESSION: 1. The appendix is partially seen and visualized portions appear normal. 2. Gravid uterus with single intrauterine fetus. 3. Right hydrosalpinx noted on ultrasound is not well seen on the CT. 4. No other acute abnormality seen. RADIA
== END 2019-10-21 05:50 | disposition home or self-care (01) ==
LOC: ED 01:00
DX: O99.89 Other specified diseases and conditions complicating pregnancy, childbirth and the puerperium (principal); R10.31 Right lower quadrant pain; N70.11 Chronic salpingitis
CPT/HCPCS: 36415; 74176; 76705; 80053; 81001; 81003; 83690; 85025; 87086; 99284

== ENCOUNTER 2019-11-08 06:37 | Outpatient (CLI) | payer MEDICAID ==
--- NOTE | 2019-11-09 11:01 | Ultrasound Report ---
Reason: Procedure Date: 11/08/2019 Accession Number: [id number] / [id number] Procedure: US - OB Detailed Eval CPT Code: Final Report FULL RESULT: EXAM: COMPLETE OBSTETRICAL ULTRASOUND EXAM DATE: 11/08/2019 08:11 AM. CLINICAL HISTORY: anatomic survey. COMPARISON: ABDOMEN/PELVIS W/O 10/21/2019 4:49 AM OB F/U OR REPEAT 10/19/2019 10:02 AM OB FIRST TRIMESTER 08/16/2019 7:06 AM OB FIRST TRIMESTER 08/07/2019 6:51 PM OB DETAILED EVAL 03/10/2018 7:54 AM. TECHNIQUE: Real-time sonographic evaluation of the fetus performed by the milking machine mechanic. Multiple food service representative static images were saved for review. DATING: Established EGA 19 weeks 5 days with TERRENCE 03/29/2020 based on LMP. EGA 19 weeks 1 day with TERERNCE 04/02/2020 based on first ultrasound on 08/16/2019. EGA 18 weeks 6 days with TERRENCE 04/04/2020 based on the current ultrasound. GENERAL EVALUATION Wan . Cardiac activity: 150 bpm. movement: Visualized. Presentation: Variable. Placenta: Anterior position. No evidence for previa. Umbilical cord: 3 vessel cord. Central placental cord origin. Amniotic fluid: Subjectively normal. MVP 4.2 cm. BIOMETRY Bi-Parietal Diameter (BPD): 4.21 cm, 18 weeks 5 days. Head Circumference (HC): 15.69 cm, 18 weeks 4 days. Abdominal Circumference (AC): 13.74 cm, 19 weeks 1 day. Femur Length (FL): 2.87 cm, 18 weeks 6 days. Estimated Weight: 266 g, 12th percentile for 19 weeks 5 days. ANATOMY The intracranial structures, profile, face/nose/lips, 4 chamber heart and outflow tracts, stomach, abdominal wall and cord insertion, diaphragm, kidneys, bladder, and extremities were visualized and demonstrate no abnormality. Suboptimal visualization of the spine due to position. MATERNAL STRUCTURES Uterus: Unremarkable. Cervix: Long and closed. Transabdominal length 4.2 cm. Right ovary/adnexa: Unremarkable. Left ovary/adnexa: Unremarkable. Free fluid: None. IMPRESSION: 1. Wan live intrauterine with gestational age 19 weeks 5 days based on LMP. 2. Estimated weight is at the 12th percentile for 19 weeks 5 days. 3. Suboptimal visualization of the spine due to position. Recommend follow-up with limited OB ultrasound to complete anatomic evaluation. 4. Otherwise normal anatomic survey. No anatomic abnormalities are detected at this time. RADIA
== END 2019-11-08 06:38 | disposition home or self-care (01) ==
LOC: DI 06:37
PROVIDERS: ATTEND Nurse Practitioner Obstetrics & Gynecology
DX: Z34.92 Encounter for supervision of normal pregnancy, unspecified, second trimester (principal); Z36.89 Encounter for other specified antenatal screening
CPT/HCPCS: 76811

== ENCOUNTER 2019-11-19 09:35 | Emergency (ER) | payer MEDICAID ==
--- NOTE | 2019-11-19 11:01 | ED Physician Documentation ---
PD HPI CHEST PAIN - Stated complaint Stated Complaint: CHEST PX/21 WK OB - Chief complaint Chief Complaint: Cardiac - History obtained from History obtained from: Patient - History of Present Illness Timing - onset: How many weeks ago (few weeks of episodic feeling of heart racing, with some dyspnea. Usually just few minutes at a time, or even some intermittent heart surges. Had episodes several times daily the past several days, and last night had episode lasting around 30 minutes.) Timing - onset during: Rest, Light activity Timing - duration: Minutes Timing - details: Abrupt onset. No: Still present Quality: Other (feeling of heart irregular and fast at times). No: Pressure, Tightness Location: Substernal Radiation: No: Jaw, Neck Worsened by: No: Inspiration, Movement Associated symptoms: Shortness of air, Palpitations. No: Diaphoresis, Nausea, Feeling faint / dizzy Similar symptoms before: Has not had sx before Review of Systems Constitutional: denies: Fever, Chills Nose: denies: Rhinorrhea / runny nose, Congestion Throat: denies: Sore throat Respiratory: denies: Cough GI: denies: Nausea, Vomiting, Diarrhea : reports: Frequency, Now EGA (21 weeks). denies: Dysuria, Irregular menses Skin: denies: Rash, Lesions PD PAST MEDICAL HISTORY - Past Medical History Past Medical History: Yes Cardiovascular: None Respiratory: Asthma Neuro: Migraines, Other Endocrine/Autoimmune: None GI: None OIL WELL SERVICE OPERATOR: Fibroids : None HEENT: None Psych: None Musculoskeletal: None Derm: None - Past Surgical History Past Surgical History: No - Present Medications Home Medications: Ambulatory Orders Medication Instructions Recorded Confirmed Naproxen 375 mg PO BID #14 tablet 11/19/19 Ondansetron Odt [Zofran] 4 mg TL Q6H PRN #15 tablet 11/19/19 Potassium Chloride 10 meq PO DAILY #15 tablet.er 11/19/19 - Allergies Allergies/Adverse Reactions: Allergies Allergy/AdvReac Type Severity Reaction Status Date / Time Penicillins Allergy Unknown Hives Verified 11/19/19 09:52 dairy AdvReac Intermediate Nausea Uncoded 11/19/19 09:52 eggs AdvReac Intermediate Cramps Uncoded 11/19/19 09:52 gluten AdvReac Intermediate Cramps Uncoded 11/19/19 09:52 cantalope, honeydew AdvReac Unknown Cramps Uncoded 11/19/19 09:52 - Social History Does the pt smoke?: No Smoking Status: Never smoker Does the pt drink ETOH?: No Does the pt have substance abuse?: No - Immunizations Immunizations are current?: Yes - POLST Patient has POLST: No PD ED PE NORMAL - Vitals Vital signs reviewed: Yes - General General: Alert and oriented X 3, No acute distress, Well developed/nourished - HEENT HEENT: Pharynx benign - Neck Neck: Supple, no meningeal sign, No adenopathy, Thyroid normal - Cardiac Cardiac: RRR, No murmur - Respiratory Respiratory: Clear bilaterally - Abdomen Abdomen: Soft, Non tender, Other (gravid just above umbilicus, with FHT found by nursing.) - Derm Derm: Normal color, Warm and dry - Neuro Neuro: Alert and oriented X 3, No motor deficit, Normal speech Results - Vitals Vitals: Vital Signs - 24 hr 11/19/19 11/19/19 11/19/19 09:42 11:21 13:52 Temperature 36.9 C 36.6 C Heart Rate 108 H 111 H 109 H Respiratory 16 24 24 Rate Blood Pressure 129/74 116/95 H 102/68 O2 Saturation 100 98 98 Oxygen O2 Source Room air - EKG (time done) 11:08 Rate: Rate (enter#) (91) Rhythm: NSR [place]: Normal Intervals: Normal AR QRS: Normal Ischemia: Normal ST segments. No: ST elevation c/w ischemia, ST depression - Labs Labs: Laboratory Tests 11/19/19 11/19/19 11/19/19 11:10 11:10 11:10 WBC 15.1 H RBC 4.16 L Hgb 12.3 Hct 36.0 L MCV 86.5 MCH 29.6 MCHC 34.2 RDW 13.6 Plt Count 293 MPV 9.8 Neut # (Auto) 10.7 H Lymph # (Auto) 3.3 [place] # (Auto) 0.6 Eos # (Auto) 0.2 Baso # (Auto) 0.1 Absolute Nucleated RBC 0.00 Nucleated RBC % 0.0 Sodium 135 Potassium 3.1 L Chloride 106 Carbon Dioxide 20 L Anion Gap 9.0 BUN 5 L Creatinine 0.4 Estimated GFR (MDRD) 201 Glucose 96 Calcium 8.7 Magnesium 2.1 Total Bilirubin 0.4 AST 15 ALT 13 Alkaline Phosphatase 63 Troponin I High Sens < 2.3 L B-Natriuretic Peptide Total Protein 7.2 Albumin 3.7 Globulin 3.5 Albumin/Globulin Ratio 1.1 Lipase 23 TSH Free T4 Free T3 pg/mL 11/19/19 11/19/19 11/19/19 11:10 11:10 11:10 WBC RBC Hgb Hct MCV MCH MCHC RDW Plt Count MPV Neut # (Auto) Lymph # (Auto) [place] # (Auto) Eos # (Auto) Baso # (Auto) Absolute Nucleated RBC Nucleated RBC % Sodium Potassium Chloride Carbon Dioxide Anion Gap BUN Creatinine Estimated GFR (MDRD) Glucose Calcium Magnesium Total Bilirubin AST ALT Alkaline Phosphatase Troponin I High Sens B-Natriuretic Peptide 17 Total Protein Albumin Globulin Albumin/Globulin Ratio Lipase TSH 5.97 H Free T4 0.62 Free T3 pg/mL 3.98 H - Rads (name of study) chest xray Radiology: Prelim report reviewed (no acute process), See rad report PD MEDICAL DECISION MAKING - ED course Complexity details: d/w PMD (talk with OIL WELL SERVICE OPERATOR, who will start pt on low dose thyroid supplement, and refer to Cardiology for heart monitor testing for SVT/etc.) Departure - Departure Disposition: 01 Home, Self Care Clinical Impression: Atypical chest pain, Heart palpitations, Hypokalemia Hypothyroid Qualifiers: Hypothyroidism type: unspecified Qualified Code(s): E03.9 - Hypothyroidism, unspecified Condition: Stable Record reviewed to determine appropriate education?: Yes Instructions: Hypokalemia Dc Follow-Up: Lulú Deleon MD [Provider Admit Priv/Credential] - Prescriptions: Naproxen 375 mg PO BID #14 tablet Ondansetron Odt [Zofran] 4 mg TL Q6H PRN #15 tablet PRN Reason: Nausea / Vomiting Potassium Chloride 10 meq PO DAILY #15 tablet.er Comments: Use anti-inflammatory such as naproxen twice daily for 5 to 7 days. This is still okay at this point in . This will help with some of the chest wall tenderness and pain. Stay well-hydrated. Ondansetron if needed for nausea. Add a potassium supplement daily for the next week or so to improve that. Dr. Deleon is going to refer you to a assistant counsel to evaluate for possible irregular heartbeat or abnormal heart rhythms at times. Your thyroid is also slightly underfunctioning and she is going to add a very low-dose thyroid supplement. This might be tying into the symptoms as well. Recheck if not improved well over the next several days. Rest today off work. Forms: Activity restrictions Discharge Date/Time: 11/19/19 13:53
[2019-11-19 11:19] LABS: BASOPHILS # (AUTO) 0.1 10^3/uL (0.0-0.1); BASOPHILS % (AUTO) 0.7 %; EOSINOPHILS # (AUTO) 0.2 10^3/uL (0.0-0.7); EOSINOPHILS % (AUTO) 1.5 %; HGB - HEMOGLOBIN 12.3 g/dL (12.0-16.0); LYMPHOCYTES # (AUTO) 3.3 10^3/uL (1.5-3.5); LYMPHOCYTES % (AUTO) 22.2 %; MEAN CORPUSCULAR HEMOGLOBIN 29.6 pg (27.0-31.0); MEAN CORPUSCULAR HGB CONC 34.2 g/dL (32.0-36.0); MEAN CORPUSCULAR VOLUME 86.5 fL (81.0-99.0); MEAN PLATELET VOLUME 9.8 fL (7.9-10.8); MONOCYTES # (AUTO) 0.6 10^3/uL (0.0-1.0); MONOCYTES % (AUTO) 4.2 %; NEUTROPHILS # (AUTO) 10.7 10^3/uL (1.5-6.6); NEUTROPHILS % (AUTO) 70.7 %; PLT - PLATELET COUNT 293 10^3/uL (130-450); RED BLOOD COUNT 4.16 10^6/uL (4.20-5.40); RED CELL DISTRIBUTION WIDTH 13.6 % (12.0-15.0); WHITE BLOOD COUNT 15.1 x10^3/uL (4.8-10.8)
[2019-11-19 11:33] LABS: ALBUMIN 3.7 g/dL (3.2-5.5); ALBUMIN/GLOBULIN RATIO 1.1 (1.0-2.2); BILIRUBIN,TOTAL 0.4 mg/dL (0.2-1.0); CALCIUM 8.7 mg/dL (8.5-10.3); CREATININE 0.4 mg/dL (0.4-1.0); MAGNESIUM 2.1 mg/dL (1.7-2.8); TOTAL PROTEIN 7.2 g/dL (6.7-8.2)
[2019-11-19] MEDS ORDERED: POTASSIUM CHLORIDE 20 MEQ TABLET PO STA (11:43)
--- NOTE | 2019-11-19 11:57 | XRAY Report ---
Reason: chest pain Procedure Date: 11/19/2019 Accession Number: [id number] / [id number] Procedure: XR - Chest 1 View X-Ray CPT Code: 56777 Final Report FULL RESULT: EXAM: CHEST RADIOGRAPHY EXAM DATE: 11/19/2019 11:23 AM. CLINICAL HISTORY: Chest pain. COMPARISON: None. TECHNIQUE: 1 view. FINDINGS: Lungs/Pleura: No focal opacities evident. No pleural effusion. No pneumothorax. Mediastinum: Within exam limitations, the cardiomediastinal contour is normal. Other: None. IMPRESSION: Normal single view chest. RADIA
[2019-11-19 13:53] VITALS: BP 102/68
[2019-11-19 14:37] LABS: FREE T3 3.98 pg/mL (2.5-3.9)
[2019-11-19 14:39] LABS: FREE T4 (FREE THYROXINE) 0.62 ng/dL (0.58-1.64)
== END 2019-11-19 13:53 | disposition home or self-care (01) ==
LOC: ED 09:35
DX: O99.89 Other specified diseases and conditions complicating pregnancy, childbirth and the puerperium (principal); R07.89 Other chest pain; R00.2 Palpitations; E87.6 Hypokalemia; E03.9 Hypothyroidism, unspecified
CPT/HCPCS: 36415; 71045; 80053; 83690; 83735; 83880; 84439; 84443; 84481; 84484; 85025; 93005; 99284; A9270

== ENCOUNTER 2019-11-20 09:33 | Outpatient (CLI) | payer MEDICAID | END 2019-11-20 23:59 | disposition home or self-care (01) | LOC: LAB.WCP 09:33 | PROVIDERS: ATTEND Advanced Practice Midwife | DX: Z34.90 Encounter for supervision of normal pregnancy, unspecified, unspecified trimester (principal); Z36.0 Encounter for antenatal screening for chromosomal anomalies | CPT/HCPCS: 36415; 81511; 81599 ==

== ENCOUNTER 2019-11-25 23:58 | Emergency (ER) | payer MEDICAID ==
--- NOTE | 2019-11-25 23:59 | ED Physician Documentation ---
History of Present Illness - Stated complaint Stated Complaint: CP - History obtained from History obtained from: Patient (Patient is a very pleasant G3, P1 is a 19-year-old female presents at [id number] weeks by last menstrual. Complains of some mild chest discomfort and palpitations she was seen here about 5 days ago and had a negative EKG negative chest x-ray negative lab work she denies any history of pulmonary embolism or DVT she reported some palpitations that have since resolved denies any syncopal episodes or unilateral lower extremity swelling no history of DVT or PE denies any illicit drug use.Patient denies any vaginal bleeding or sudden leakage of fluid reports good movement.) Review of Systems Constitutional: reports: Reviewed and negative Eyes: reports: Reviewed and negative Ears: reports: Reviewed and negative Nose: reports: Reviewed and negative Throat: reports: Reviewed and negative Cardiac: reports: Chest pain / pressure Respiratory: reports: Reviewed and negative GI: reports: Reviewed and negative : reports: Reviewed and negative Skin: reports: Reviewed and negative Musculoskeletal: reports: Reviewed and negative Neurologic: reports: Reviewed and negative Psychiatric: reports: Reviewed and negative Endocrine: reports: Reviewed and negative Immunocompromised: reports: Reviewed and negative PD PAST MEDICAL HISTORY - Past Medical History Cardiovascular: None Respiratory: Asthma Neuro: Migraines, Other Endocrine/Autoimmune: None GI: None PARTS ROOM ASSISTANT: Fibroids : None HEENT: None Psych: None Musculoskeletal: None Derm: None - Past Surgical History Past Surgical History: No - Present Medications Home Medications: Ambulatory Orders Medication Instructions Recorded Confirmed Levothyroxine Sodium 25 mcg PO DAILY 11/26/19 11/26/19 - Allergies Allergies/Adverse Reactions: Allergies Allergy/AdvReac Type Severity Reaction Status Date / Time Penicillins Allergy Unknown Hives Verified 11/25/19 23:59 dairy AdvReac Intermediate Nausea Uncoded 11/25/19 23:59 eggs AdvReac Intermediate Cramps Uncoded 11/25/19 23:59 gluten AdvReac Intermediate Cramps Uncoded 11/25/19 23:59 cantalope, honeydew AdvReac Unknown Cramps Uncoded 11/25/19 23:59 - Social History Does the pt smoke?: No Smoking Status: Never smoker Does the pt drink ETOH?: No Does the pt have substance abuse?: No - Immunizations Immunizations are current?: Yes - POLST Patient has POLST: No PD ED PE NORMAL - Vitals Vital signs reviewed: Yes - General General: Alert and oriented X 3, No acute distress - HEENT HEENT: PERRL - Neck Neck: Supple, no meningeal sign - Cardiac Cardiac: RRR, No murmur - Respiratory Respiratory: Clear bilaterally - Abdomen Abdomen: Normal bowel sounds, Soft, Non tender, Non distended, Other (Consistent with 22-week gravid uterus) - Derm Derm: Warm and dry - Extremities Extremities: No deformity - Neuro Neuro: Alert and oriented X 3 - Psych Psych: Normal mood, Normal affect Results - Vitals Vitals: Vital Signs - 24 hr 11/25/19 11/26/19 11/26/19 23:59 01:08 01:30 Temperature 36.5 C 36.8 C Heart Rate 90 100 Respiratory 16 19 Rate Blood Pressure 118/64 114/63 O2 Saturation 100 99 Oxygen O2 Source Room air - EKG (time done) 00:11 Rate: Other (no stemi) PD MEDICAL DECISION MAKING - ED course Complexity details: considered differential (Patient asymptomatic on arrival her EKG is unremarkable she had a chest x-ray less than a week ago as well as labs and EKG did are unremarkable there is no unilateral lower extremity swelling she has however history and exam are not concerning for pulmonary embolism.I did have a discussion with this patient about performed a CT angiogram of the chest to rule out pulmonary embolism however the patient would not like to proceed with this at this time explained to her all benefits alternatives and risks to include observing which I do feel is reasonable Given the fact that she is asymptomatic now she has no hemoptysis no unilateral lower extremity swelling. And no history of pulmonary embolism or DVT.) Departure - Departure Disposition: 01 Home, Self Care Clinical Impression: Chest pain Qualifiers: Chest pain type: unspecified Qualified Code(s): R07.9 - Chest pain, unspecified Condition: Stable Instructions: ED Chest Pain NonCardiac Follow-Up: your, doctor [Other] - 11/26/19 Comments: Call your OB doctor tomorrow as well as your primary care provider tomorrow.
[2019-11-26 02:17] VITALS: BP 110/68
== END 2019-11-26 01:30 | disposition home or self-care (01) ==
LOC: ED 23:58
DX: O99.89 Other specified diseases and conditions complicating pregnancy, childbirth and the puerperium (principal); R07.9 Chest pain, unspecified; Z3A.22 22 weeks gestation of pregnancy
CPT/HCPCS: 93005; 99284

== ENCOUNTER 2019-11-27 07:12 | Outpatient (CLI) | payer MEDICAID ==
--- NOTE | 2019-11-28 08:43 | Ultrasound Report ---
Reason: SUPERVISION OF Procedure Date: 11/27/2019 Accession Number: [id number] / [id number] Procedure: US - OB F/U or Repeat CPT Code: Final Report FULL RESULT: EXAM: FOLLOW-UP OBSTETRICAL ULTRASOUND EXAM DATE: 11/27/2019 08:00 AM. CLINICAL HISTORY: SUPERVISION OF . COMPARISON: OB F/U OR REPEAT 10/19/2019 10:02 AM OB DETAILED EVAL 11/08/2019 6:42 AM. TECHNIQUE: Real-time sonographic evaluation of the fetus performed by the ski edge painter. Additional transvaginal imaging to more accurately evaluate cervical length/placental position/etc. Multiple self pay representative static images were saved for review. DATING: Established EGA 22 weeks, 3 days with TERRENCE 03/29/2020 based on assigned dating. EGA 21 weeks, 6 days with TERRENCE 03/29/2020 based on ultrasound performed 08/16/2019. EGA 21 weeks, 4 days with TERRENCE 04/04/2020 based on the current ultrasound. GENERAL EVALUATION Wan . Cardiac activity: 149 bpm. movement: Visualized. Presentation: Breech Placenta: Anterior position. Amniotic fluid: Normal. FLAKITO 17.2 cm. MVP 6 cm. BIOMETRY Bi-Parietal Diameter (BPD): 5.1 cm, 21 weeks, 3 days Head Circumference (HC): 19 cm, 21 weeks 3 days Abdominal Circumference (AC): 16.7 cm, 21 weeks, 5 days Femur Length (FL): 3.7 cm, 21 weeks, 6 days Estimated Weight: 450 g, 16th percentile for 22 weeks, 3 days. ANATOMY spine was unremarkable. MATERNAL STRUCTURES Cervix measured 5 cm, appearing long and closed on transabdominal imaging. IMPRESSION: 1. Wan live intrauterine with gestational age 22 weeks, 3 days based on assigned dating. 2. Estimated weight is within expected limits for assigned dating. Estimated weight is at 16th percentile today, previously 12 percentile on ultrasound 11/08/2019. 3. Normal interval growth compared to ultrasound 08/16/2019. 4. Normal amniotic fluid volume. RADIA
== END 2019-11-27 07:13 | disposition home or self-care (01) ==
LOC: DI 07:12
PROVIDERS: ATTEND Obstetrics & Gynecology
DX: Z34.92 Encounter for supervision of normal pregnancy, unspecified, second trimester (principal)
CPT/HCPCS: 76816

== ENCOUNTER 2019-12-11 08:33 | Outpatient (CLI) | payer MEDICAID ==
[2019-12-11 14:06] LABS: HGB - HEMOGLOBIN 12.4 g/dL (12.0-16.0); MEAN CORPUSCULAR HEMOGLOBIN 29.5 pg (27.0-31.0); MEAN CORPUSCULAR HGB CONC 32.8 g/dL (32.0-36.0); MEAN PLATELET VOLUME 10.3 fL (7.9-10.8); RED BLOOD COUNT 4.2 10^6/uL (4.20-5.40); RED CELL DISTRIBUTION WIDTH 14.2 % (12.0-15.0); WHITE BLOOD COUNT 12.2 x10^3/uL (4.8-10.8)
== END 2019-12-11 23:59 | disposition home or self-care (01) ==
LOC: LAB.WCP 08:33
PROVIDERS: ATTEND Advanced Practice Midwife
DX: Z34.90 Encounter for supervision of normal pregnancy, unspecified, unspecified trimester (principal)
CPT/HCPCS: 36415; 82950; 84443; 85027; 86850

== ENCOUNTER 2020-02-25 11:31 | Outpatient (CLI) | payer MEDICAID ==
[2020-02-25 13:17] LABS: BILIRUBIN,URINE NEGATIVE (NEGATIVE); GLUCOSE, URINE (UA) NEGATIVE (NEGATIVE); KETONES,URINE (UA) NEGATIVE (NEGATIVE); LEUKOCYTE ESTERASE, URINE TRACE (NEGATIVE); NITRITE,URINE NEGATIVE (NEGATIVE); OCCULT BLOOD,URINE NEGATIVE (NEGATIVE); PH,URINE 7.5 PH (5.0-7.5); PROTEIN,URINE NEGATIVE (NEGATIVE); UROBILINOGEN,URINE 0.2 (NORMAL) E.U./dL (NORMAL)
[2020-02-25 13:30] LABS: CLARITY,URINE CLEAR (CLEAR); RBC,URINE None Seen /HPF (0-5)
[2020-02-25 13:31] LABS: BACTERIA,URINE Few /HPF (None Seen); SQUAMOUS EPITHELIAL CELL,UR MOD Squamous (<= Few)
[2020-02-25 15:06] LABS: CANDIDA GROUP DNA NEGATIVE (NEGATIVE); CANDIDA KRUSEI DNA NEGATIVE (NEGATIVE); TRICHOMONAS VAGINALIS DNA NEGATIVE (NEGATIVE)
[2020-02-25 15:10] VITALS: BP 125/73
[2020-02-25 20:19] LABS: TRICHOMONAS VAGINALIS DNA NEGATIVE (NEGATIVE)
--- NOTE | 2020-03-17 12:13 | PROVIDER PROGRESS NOTE ---
- HPI Chief Complaint: Other (Patient is a 20 yo at 35+2 wga here with abdominal pain and diarrhea. Has had several bout of diarrhea and abdominal cramping. No VB or LOF.) Current : Current EDU 03/29/20 Gestation 35 Weeks and 2 Days 3 Para 1 Vital Signs Temperature 98.9 F 02/25/20 12:04 Heart Rate 112 H 02/25/20 12:04 Respiratory Rate 02/25/20 12:04 Blood Pressure 116/77 02/25/20 12:04 Temperature 98.9 F 02/25/20 12:15 Heart Rate 102 H 02/25/20 15:06 Respiratory Rate 02/25/20 15:06 Blood Pressure 125/73 02/25/20 15:06 O2 Saturation - Exam GEN: Moderate distress relieved after fluid - Procedures OB Procedure Performed: NST NST Procedure: NST Procedure Start Time 10:28 Stop Time 11:15 EFM 130 mod jaimee 15x15 accels no decels TOCO: Irregular at presentation, quiet at time of discharge Service Date of procedure: 02/25/20 Procedure Details: Patient is a 20 yo at 35+2 wga here with painful contractions. Patient reported episodes of diarrhea earlier in the day followed with painful contractions. FFN neg GBS neg Vaginitis panel and GCCT neg UA unremarkable Patient received IV fluid bolus Contractions discontinued. Patient was discharged to home with warning signs reviewed DX: False labor
== END 2020-02-25 15:15 | disposition home or self-care (01) ==
LOC: WFO 11:31 → FBP 11:32 → WFO 15:15 → OBS 15:26
PROVIDERS: ATTEND Obstetrics & Gynecology
DX: O47.1 False labor at or after 37 completed weeks of gestation (principal); O99.89 Other specified diseases and conditions complicating pregnancy, childbirth and the puerperium; R19.7 Diarrhea, unspecified; Z3A.35 35 weeks gestation of pregnancy
CPT/HCPCS: 81001; 82731; 87086; 87491; 87591; 87661; 87797; 87801; 99213

== ENCOUNTER 2020-03-02 20:17 | Outpatient (CLI) | payer MEDICAID ==
[2020-03-02 20:35] VITALS: BP 118/80
[2020-03-02 21:52] LABS: RUPTURE OF MEMBRANES PLUS NEGATIVE (NEGATIVE)
--- NOTE | 2020-03-10 13:03 | PROCEDURE REPORT ---
- HPI Diagnosis/Indication for NST: Other (Rule out SROM) Current EDU 03/29/20 Gestation 36 Weeks and 1 Days 3 Para 1 Vital Signs Temperature 37 C 03/02/20 20:32 Heart Rate 136 H 03/02/20 20:32 Respiratory Rate 18 03/02/20 20:32 Blood Pressure 118/80 03/02/20 20:32 O2 Saturation 99 03/02/20 20:32 Temperature 37 C 03/02/20 20:32 Heart Rate 136 H 03/02/20 20:32 Respiratory Rate 18 03/02/20 20:32 Blood Pressure 118/80 03/02/20 20:32 O2 Saturation 99 03/02/20 20:32 - NST Procedure NST Procedure Start Time 10:28 Stop Time 11:15 - Results and Plan Findings/Impression: reactive NST Negative ROM+, Pool, Nitrazine NOt ruptured Plan: Sent home with precautions: FM, Labor, ROM.
== END 2020-03-02 22:30 | disposition home or self-care (01) ==
LOC: WFO 20:17 → FBP 20:19 → WFO 22:30
PROVIDERS: ATTEND Obstetrics & Gynecology
DX: Z34.83 Encounter for supervision of other normal pregnancy, third trimester (principal)
CPT/HCPCS: 84112; 99213

== ENCOUNTER 2020-03-05 11:59 | Outpatient (CLI) | payer MEDICAID ==
[2020-03-05 12:52] LABS: ALT ALANINE AMINOTRANSFERASE 12 IU/L (10-60); AST ASPARTATE AMINOTRANSFERASE 12 IU/L (10-42)
== END 2020-03-05 12:00 | disposition home or self-care (01) ==
LOC: LAB 11:59
PROVIDERS: ATTEND Advanced Practice Midwife
DX: O99.619 Diseases of the digestive system complicating pregnancy, unspecified trimester (principal)
CPT/HCPCS: 36415; 82542; 84450; 84460

== ENCOUNTER 2020-03-12 15:33 | Outpatient (CLI) | payer MEDICAID ==
[2020-03-12 15:46] VITALS: BP 136/72
[2020-03-12 16:38] LABS: BILIRUBIN,URINE NEGATIVE (NEGATIVE); GLUCOSE, URINE (UA) NEGATIVE (NEGATIVE); KETONES,URINE (UA) NEGATIVE (NEGATIVE); LEUKOCYTE ESTERASE, URINE TRACE (NEGATIVE); NITRITE,URINE NEGATIVE (NEGATIVE); OCCULT BLOOD,URINE NEGATIVE (NEGATIVE); PROTEIN,URINE NEGATIVE (NEGATIVE); UROBILINOGEN,URINE 0.2 (NORMAL) E.U./dL (NORMAL)
[2020-03-12 16:39] LABS: CLARITY,URINE CLEAR (CLEAR)
[2020-03-12 16:43] LABS: BACTERIA,URINE Few /HPF (None Seen); RBC,URINE 0-5 /HPF (0-5); SQUAMOUS EPITHELIAL CELL,UR FEW Squamous (<= Few)
--- NOTE | 2020-03-12 17:41 | PROCEDURE REPORT ---
- HPI Diagnosis/Indication for NST: Other (Brown spotting, contractions at term) Current EDU 03/29/20 Gestation 37 Weeks and 4 Days 3 Para 1 Vital Signs Temperature 98.6 F 03/12/20 15:44 Heart Rate 127 H 03/12/20 15:44 Respiratory Rate 03/12/20 15:44 Blood Pressure 136/72 H 03/12/20 15:44 Temperature 98.6 F 03/12/20 15:44 Heart Rate 127 H 03/12/20 15:44 Respiratory Rate 03/12/20 15:44 Blood Pressure 136/72 H 03/12/20 15:44 O2 Saturation - NST Procedure NST Procedure Start Time 10:28 Stop Time 11:15 - Results and Plan Findings/Impression: S: UC same as usual but now having some brown tinted discharge which is odd. No vag itching or odor. Good movement. Having itching on arms, legs, and face. No rash. Sometimes getting RUQ dull pains, not severe or persistent. O: Alert, smiling, moving freely, NAD Abd soft, nt/nd Category 1 NST [place]: UC present 1-2 q10min External genitalia: normal Vaginal exam: clumpy yellow discharge SVE: 1/0/-3 A/P: 20yo P1 at 37w with 1) yeast vaginitis--will treat with 7d cream 2) generalized pruritis with normal bile acids--comfort care reviewed 3) intermittent dull RUQ pain -- let us know if pain is severe, watch to see if there is a pattern with food consumption. 4) prodromal contractions, no active labor
== END 2020-03-12 17:45 | disposition home or self-care (01) ==
LOC: WFO 15:33 → FBP 15:50 → WFO 17:45
PROVIDERS: ATTEND Obstetrics & Gynecology
DX: O98.813 Other maternal infectious and parasitic diseases complicating pregnancy, third trimester (principal); B37.3 Candidiasis of vulva and vagina; O26.893 Other specified pregnancy related conditions, third trimester; L29.9 Pruritus, unspecified; O62.9 Abnormality of forces of labor, unspecified; Z3A.37 37 weeks gestation of pregnancy; O99.89 Other specified diseases and conditions complicating pregnancy, childbirth and the puerperium; R10.811 Right upper quadrant abdominal tenderness
CPT/HCPCS: 81001; 87086; 99213

== ENCOUNTER 2020-03-16 15:23 | Outpatient (CLI) | payer MEDICAID ==
[2020-03-16 15:44] VITALS: BP 126/77
[2020-03-16 16:07] LABS: RUPTURE OF MEMBRANES PLUS NEGATIVE (NEGATIVE)
--- NOTE | 2020-03-17 18:45 | PROCEDURE REPORT ---
- HPI Diagnosis/Indication for NST: Other (rule out rupture of membranes) Current EDU 03/29/20 Gestation 38 Weeks and 1 Days 3 Para 1 Vital Signs Temperature 99.0 F 03/16/20 15:44 Heart Rate 105 H 03/16/20 15:44 Respiratory Rate 17 03/16/20 15:44 Blood Pressure 126/77 03/16/20 15:44 O2 Saturation 99 03/16/20 15:44 Temperature 99.0 F 03/16/20 15:44 Heart Rate 105 H 03/16/20 15:44 Respiratory Rate 17 03/16/20 15:44 Blood Pressure 126/77 03/16/20 15:44 O2 Saturation 99 03/16/20 15:44 - NST Procedure NST Procedure Start Time 10:28 Stop Time 11:15 - Results and Plan Findings/Impression: Thought she had some leaking of fluid more than usual. Needing to change panty liner 3x per day and they tend to be pretty full. No bleeding. No leaking of water down her leg or free-flowing. Good FM. No significant UC. ROM plus test was negative Category 1 NST. For the first hour baby was very active and baseline heart rate was up to 170's c/w "prolonged acceleration". Baseline dropped when baby became less active to 135 BPM. Moderate LTV. No decels. Accels present. [place] neg. A/P: no rupture of membranes. Labor precautions given.
== END 2020-03-16 18:25 | disposition home or self-care (01) ==
LOC: WFO 15:23 → FBP 15:25 → WFO 18:25
PROVIDERS: ATTEND Obstetrics & Gynecology
DX: Z34.83 Encounter for supervision of other normal pregnancy, third trimester (principal)
CPT/HCPCS: 84112; 99214

== ENCOUNTER 2020-03-23 04:53 | Inpatient (IN) | payer MEDICAID ==
--- NOTE | 2020-03-23 05:32 | HISTORY & PHYSICAL EXAMINATION ---
Admit History - Smoking Status: Never smoker Meds/Allgy - Home Medications Home Medications: Ambulatory Orders Medication Instructions Recorded Confirmed Levothyroxine Sodium 25 mcg PO DAILY 11/26/19 11/26/19 - Allergies Allergies/Adverse Reactions: Allergies Allergy/AdvReac Type Severity Reaction Status Date / Time Penicillins Allergy Unknown Hives Verified 11/25/19 23:59 dairy AdvReac Intermediate Nausea Uncoded 11/25/19 23:59 eggs AdvReac Intermediate Cramps Uncoded 11/25/19 23:59 gluten AdvReac Intermediate Cramps Uncoded 11/25/19 23:59 cantalope, honeydew AdvReac Unknown Cramps Uncoded 11/25/19 23:59 Physical - Abdominal Exam Vital Signs: Temp Pulse Resp BP Pulse Ox 99.0 F 117 H 17 118/78 98 03/23/20 05:06 03/23/20 05:24 03/23/20 05:06 03/23/20 05:24 03/23/20 05:06
[2020-03-23 05:46] LABS: RUPTURE OF MEMBRANES PLUS POSITIVE (NEGATIVE)
[2020-03-23] MEDS ORDERED: METOCLOPRAMIDE 10 MG/2 ML VIAL IVP PRN ×2 (05:51→11:45)
[2020-03-23] MEDS ORDERED: ACETAMINOPHEN 325 MG TABLET PO PRN (05:51)
[2020-03-23] MEDS ORDERED: TRANEXAMIC ACID 1,000 MG in SODIUM CHLORIDE 0.9% 100ML 100 ML IV PRN (05:51)
[2020-03-23] MEDS ORDERED: CARBOPROST TROMETHAMINE 250 MCG/ML AMP IM PRN (05:51)
[2020-03-23] MEDS ORDERED: OXYTOCIN 10 UNIT/ML VIAL IM PRN (05:51)
[2020-03-23] MEDS ORDERED: SODIUM CHLORIDE FLUSH 0.9% 10 ML SYRINGE IVP PRN (05:51)
[2020-03-23] MEDS ORDERED: METHYLERGONOVINE 0.2 MG/ML VIAL IM PRN (05:51)
[2020-03-23] MEDS ORDERED: TERBUTALINE 1 MG/ML VIAL SUBQ PRN (05:51)
[2020-03-23] MEDS ORDERED: fentaNYL 100 MCG/2 ML VIAL IVP PRN (05:51)
[2020-03-23] MEDS ORDERED: ONDANSETRON 4 MG/2 ML VIAL IVP PRN ×2 (05:51→11:45)
[2020-03-23] MEDS ORDERED: miSOPROStoL 200 MCG TABLET BC PRN (05:51)
[2020-03-23] MEDS ORDERED: OXYTOCIN/SODIUM CHLORIDE 500 ML IV PRN (05:51)
[2020-03-23] MEDS ORDERED: LIDOCAINE-MPF 1% 30 ML VIAL ID PRN (05:51)
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
[2020-03-23] MEDS ORDERED: NICOTINE 14 MG PATCH TOP PRN (06:26)
[2020-03-23 06:35] LABS: BASOPHILS # (AUTO) 0.1 10^3/uL (0.0-0.1); BASOPHILS % (AUTO) 0.5 %; EOSINOPHILS # (AUTO) 0.1 10^3/uL (0.0-0.7); EOSINOPHILS % (AUTO) 0.9 %; HGB - HEMOGLOBIN 11.1 g/dL (12.0-16.0); LYMPHOCYTES # (AUTO) 2.3 10^3/uL (1.5-3.5); LYMPHOCYTES % (AUTO) 17.3 %; MEAN CORPUSCULAR HEMOGLOBIN 28.8 pg (27.0-31.0); MEAN CORPUSCULAR HGB CONC 33.7 g/dL (32.0-36.0); MEAN CORPUSCULAR VOLUME 85.5 fL (81.0-99.0); MEAN PLATELET VOLUME 9.6 fL (7.9-10.8); MONOCYTES # (AUTO) 0.9 10^3/uL (0.0-1.0); NEUTROPHILS # (AUTO) 9.6 10^3/uL (1.5-6.6); NEUTROPHILS % (AUTO) 73.5 %; PLT - PLATELET COUNT 265 10^3/uL (130-450); RED BLOOD COUNT 3.85 10^6/uL (4.20-5.40)
[2020-03-23] MEDS: LACTATED RINGERS 1,000 ML IV SCH ×2 (06:38→12:18)
[2020-03-23] MEDS ORDERED: OXYTOCIN/SODIUM CHLORIDE 500 ML IV SCH (07:00)
[2020-03-23] MEDS: SODIUM CHLORIDE FLUSH 0.9% 10 ML SYRINGE IVP SCH ×2 (09:35→10:20)
--- NOTE | 2020-03-23 09:41 | PROVIDER PROGRESS NOTE ---
Subjective - Subjective Subjective: Lots of pain, pt shrieking in pain, SVE /-1, she would like epidural, will do. Objective - Vital Signs/Intake & Output Vital Signs: Vital Signs x48h Temp Pulse Pulse Resp BP BP Pulse Ox 03/23/20 07:05 97.7 F 98 18 124/72 03/23/20 05:24 117 H 118/78 03/23/20 05:06 99.0 F 125 H 17 136/74 H 98 - Lab Results Fish Bones: 03/23/20 06:33 Other Labs: Lab Results x24hrs 03/23/20 03/23/20 03/23/20 Range/Units 06:33 06:33 05:15 WBC 13.0 H (4.8-10.8) x10^3/uL RBC 3.85 L (4.20-5.40) 10^6/uL Hgb 11.1 L (12.0-16.0) g/dL Hct 32.9 L (37.0-47.0) % MCV 85.5 (81.0-99.0) fL MCH 28.8 (27.0-31.0) pg MCHC 33.7 (32.0-36.0) g/dL RDW 13.0 (12.0-15.0) % Plt Count 265 (130-450) 10^3/uL MPV 9.6 (7.9-10.8) fL Neut # (Auto) 9.6 H (1.5-6.6) 10^3/uL Lymph # (Auto) 2.3 (1.5-3.5) 10^3/uL [place] # (Auto) 0.9 (0.0-1.0) 10^3/uL Eos # (Auto) 0.1 (0.0-0.7) 10^3/uL Baso # (Auto) 0.1 (0.0-0.1) 10^3/uL Absolute Nucleated RBC 0.00 x10^3/uL Nucleated RBC % 0.0 /100WBC Membranes Rupture POSITIVE A (NEGATIVE) Blood Type A POSITIVE Antibody Screen NEGATIVE
[2020-03-23] MEDS ORDERED: ROPIVACAINE 0.2% 200 MG/100 ML BAG EP ONE (10:04)
[2020-03-23] MEDS ORDERED: diphenhydrAMINE INJ 50 MG/ML VIAL IVP PRN (11:45)
[2020-03-23] MEDS ORDERED: ePHEDrine 50 MG/ML VIAL IVP PRN (11:45)
[2020-03-23] MEDS ORDERED: ROPIVACAINE 0.2% 200 MG/100 ML BAG EP PRN (11:45)
[2020-03-23] MEDS ORDERED: LACTATED RINGERS 500 ML IV ONE (11:45)
[2020-03-23] MEDS ORDERED: NALBUPHINE 10 MG/ML AMP IVP PRN (11:45)
[2020-03-23] MEDS ORDERED: NALOXONE 0.4 MG/ML VIAL IVP PRN (11:45)
--- NOTE | 2020-03-23 11:53 | ANESTHESIA ---
Pre-Anesthesia VS, & Labs - Diagnosis active labor - Procedure labor epidural Vital Signs: Temp Pulse Resp BP Pulse Ox 36.5 C 98 18 124/72 98 03/23/20 07:05 03/23/20 07:05 03/23/20 07:05 03/23/20 07:05 03/23/20 05:06 Height 5 ft 2 in Weight (kg) 87.09 kg Body Mass Index 31.3 - NPO >8 hours - Is Patient ?: Yes - Lab Results Current Lab Results: Laboratory Tests 03/23/20 06:33: Blood Type A POSITIVE, Antibody Screen NEGATIVE 03/23/20 06:33: WBC 13.0 H, RBC 3.85 L, Hgb 11.1 L, Hct 32.9 L, MCV 85.5, MCH 28.8, MCHC 33.7, RDW 13.0, Plt Count 265, MPV 9.6, Neut # (Auto) 9.6 H, Lymph # (Auto) 2.3, [place] # (Auto) 0.9, Eos # (Auto) 0.1, Baso # (Auto) 0.1, Absolute Nucleated RBC 0.00, Nucleated RBC % 0.0 Fish Bones: 03/23/20 06:33 Home Medications and Allergies Active Medications Acetaminophen (Tylenol) 650 mg PO Q6H PRN PRN Reason: Abdominal Pain Carboprost Tromethamine (Hemabate) 250 mcg IM Q15M PRN PRN Reason: Step 4: Hemorrhage protocol Stop: 03/28/20 05:51 Diphenhydramine HCl (Benadryl Inj) 12.5 - 25 mg IVP Q6HR PRN PRN Reason: ITCHING Ephedrine Sulfate () 5 mg IVP Q5M PRN PRN Reason: For SBP<100;give until SBP>100 Fentanyl (Fentanyl) 100 mcg IVP Q1H PRN PRN Reason: PAIN Last Admin: 03/23/20 09:35 Dose: 100 mcg Documented by: Lactated Ringer's (Lr) 1,000 mls @ 150 mls/hr IV .Q6H40M AGUILA Last Admin: 03/23/20 06:38 Dose: 150 mls/hr Documented by: Oxytocin/Sodium Chloride (Pitocin/Sodium Chloride) 500 mls @ 999 mls/hr IV PRN PRN; Protocol PRN Reason: POST- HEMORR PREVENTION Stop: 03/28/20 05:51 Tranexamic Acid 1,000 mg/ (Sodium Chloride) 110 mls @ 660 mls/hr IV .ONCE PRN PRN Reason: EBL >1200mL and within 3hr Stop: 03/28/20 05:51 Oxytocin/Sodium Chloride (Pitocin/Sodium Chloride) 500 mls @ 1 mls/hr IV TITR AGUILA; Protocol Last Admin: 03/23/20 06:38 Dose: 1 milliunit/min, 1 mls/hr Documented by: Lactated Ringer's (Lr) 500 mls @ 999 mls/hr IV ONCE ONE Stop: 03/23/20 12:15 Ropivacaine (Naropin 0.2%) 200 mg in 100 mls @ 0 mls/hr EP PRN PRN; Protocol PRN Reason: PAIN Levothyroxine Sodium (Synthroid) 25 mcg PO QDAC AGUILA Lidocaine HCl (Xylocaine-Mpf 1% Vial) 30 ml ID .ONCE PRN PRN Reason: PERINEAL REPAIR Stop: 03/28/20 05:51 Methylergonovine Maleate (Methergine Inj) 0.2 mg IM .ONCE PRN PRN Reason: Step 2: Hemorrhage protocol Stop: 03/28/20 05:51 Metoclopramide HCl (Reglan Inj) 10 mg IVP Q6H PRN PRN Reason: Nausea / Vomiting Metoclopramide HCl (Reglan Inj) 10 mg IVP Q6HR PRN PRN Reason: Nausea / Vomiting Misoprostol (Cytotec) 800 mcg BC .ONCE PRN PRN Reason: Step 3: Hemorrhage protocol Stop: 03/28/20 05:51 Nalbuphine HCl (Nubain) 2.5 - 5 mg IVP Q4H PRN PRN Reason: ITCHING Naloxone HCl (Narcan) 0.1 mg IVP Q2M PRN PRN Reason: RR<8 Nicotine (Nicoderm) 1 patch TOP DAILY PRN PRN Reason: Nicotine Craving Ondansetron HCl (Zofran Inj) 4 mg IVP Q4H PRN PRN Reason: Nausea / Vomiting Last Admin: 03/23/20 10:19 Dose: 4 mg Documented by: Ondansetron HCl (Zofran Inj) 4 mg IVP Q6HR PRN PRN Reason: Nausea / Vomiting Oxytocin (Pitocin) 10 unit IM .ONCE PRN PRN Reason: Step one: If no IV access Stop: 03/28/20 05:51 Sodium Chloride (Normal Saline Flush 0.9%) 10 ml IVP PRN PRN PRN Reason: NEEDED PER PROVIDER ORDERS Sodium Chloride (Normal Saline Flush 0.9%) 10 ml IVP 0100,0900,1700 AGUILA Last Admin: 03/23/20 10:20 Dose: 10 ml Documented by: Terbutaline Sulfate (Terbutaline) 0.25 mg SUBQ Q1H PRN PRN Reason: category 3 tracing Levothyroxine Sodium 25 mcg PO DAILY 11/26/19 Allergies/Adverse Reactions: Allergies Allergy/AdvReac Type Severity Reaction Status Date / Time Penicillins Allergy Unknown Hives Verified 11/25/19 23:59 dairy AdvReac Intermediate Nausea Uncoded 11/25/19 23:59 eggs AdvReac Intermediate Cramps Uncoded 11/25/19 23:59 gluten AdvReac Intermediate Cramps Uncoded 11/25/19 23:59 cantalope, honeydew AdvReac Unknown Cramps Uncoded 11/25/19 23:59 Anes History & Medical History - Anesthetic History Anesthesia Complications: reports: No previous complications - Medical History Cardiovascular: reports: None Pulmonary: reports: Asthma Gastrointestinal: reports: None Urinary: reports: None Neuro: reports: Migraines, Other Musculoskeletal: reports: None Endocrine/Autoimmune: reports: None Blood Disorders: reports: None Skin: reports: None Smoking Status: Current every day smoker Exam General: Alert, Moderate distress (from contractions) Dental: WNL Mallampati classification: II Thyromental Distance: greater than 6 cm Respiratory: No respiratory distress Cardiovascular: Regular rate Plan Anesthesia Type: Epidural Consent for Procedure(s) Verified and Reviewed: Yes Code Status: Attempt Resuscitation ASA classification: 2-Mild systemic disease Is this case an emergency?: No
[2020-03-23] MEDS ORDERED: SIMETHICONE CHEW 80 MG TABLET PO PRN (13:57)
[2020-03-23] MEDS ORDERED: WITCH HAZEL/GLYCERIN 1 PAD TOP PRN (13:57)
[2020-03-23] MEDS ORDERED: diphenhydrAMINE 25 MG CAPSULE PO PRN (13:57)
[2020-03-23] MEDS ORDERED: ONDANSETRON ODT 4 MG TABLET TL PRN (13:57)
[2020-03-23] MEDS ORDERED: HYDROCORTISONE 1% CREAM 28 GM TUBE PR PRN (13:57)
--- NOTE | 2020-03-23 14:01 | DELIVERY NOTE ---
Delivery Note - Labor Labor: positive: Spontaneous, Augmented by oxytocin - Delivery Method Infant Delivery Method: positive: Spontaneous vaginal delivery - Presentation Presentation: positive: Vertex - Nuchal Cord Nuchal Cord: positive: Present (x1, reduced) - Amniotic Fluid Description Amniotic Fluid Description: positive: Thick meconium - Episiotomy Type Episiotomy Type: positive: None - Laceration Laceration: positive: Other (1cm lac between the urethra and the clitoris, initially bleeding but then hemostatic with pressure, no sutures needed.) - Delivery Outcome Delivery Outcome: positive: Livebirth - : positive: Placed in direct skin contact with mother (for cord clamp and cut. Baby to warmer for immediate eval due to absence of tone.) sex: positive: Female - Cord Cord: positive: 3 vessels - Placenta Placenta: positive: Intact, Spontaneous - Estimated Blood Loss Estimated Blood Loss (in cc): 100 - Post Delivery Events Post Delivery Events: positive: No post delivery events - Delivery Comments (Free Text/Narrative) Delivery Comments (Free Text/Narrative): 1st stage: augmented with pitocin following SROM thick mec 2nd and 3rd stage: uncomplicated Anticipate routine PP care, watch mood closely
[2020-03-23] MEDS: ACETAMINOPHEN 500 MG TABLET PO SCH ×2 (15:09→21:17)
[2020-03-23] MEDS: DOCUSATE SODIUM 100 MG CAPSULE PO SCH (21:18)
[2020-03-24] MEDS: ACETAMINOPHEN 500 MG TABLET PO SCH ×3 (06:54→13:23)
[2020-03-24] MEDS ORDERED: LEVOTHYROXINE 25 MCG TABLET PO SCH ×2 (07:00→10:00)
[2020-03-24] MEDS: NICOTINE 14 MG PATCH TOP SCH ×2 (08:10→12:20)
[2020-03-24] MEDS: DOCUSATE SODIUM 100 MG CAPSULE PO SCH (08:10)
[2020-03-24] MEDS ORDERED: oxyCODONE 5 MG TABLET PO PRN (09:50)
--- NOTE | 2020-03-24 09:55 | Discharge Plan ---
Discharge Plan Problem Reviewed?: Yes Disposition: Home, Self Care Condition: Good Diet: Regular Activity Restrictions: No Restrictions Shower Restrictions: No No Smoking: If you smoke, Please STOP! Call for help. Follow-up with: Pepe Hogan MD [Provider Admit Priv/Credential] - 6 Weeks
--- NOTE | 2020-03-24 11:22 | DISCHARGE SUMMARY ---
Physician: Luz Marina Pino MD DATE OF ADMISSION: 03/23/2020 DATE OF DISCHARGE: 03/24/2020 ADMISSION DIAGNOSES: 1. Intrauterine at 39 weeks. 2. Spontaneous rupture of membranes. DISCHARGE DIAGNOSIS: Status post spontaneous vaginal delivery at term. PROCEDURES: Spontaneous vaginal delivery on 03/23/2020. HOSPITAL COURSE: The patient was admitted with spontaneous rupture of membranes with infrequent cont ractions. She was augmented with Pitocin and received an epidural for pain control. She delivered w ithout difficulty and her course was uncomplicated. By day #2, she was request ing discharge home. She was eating, ambulating, , and urinating without problems. Her mood was good and her pain was currently under good control. She had had some cramping pains, but th ey have improved. DISCHARGE EXAMINATION: Vital Signs. She was afebrile with normal vital signs. Alert and smiling, i n no apparent distress, cuddling with baby. Abdomen soft, nontender, nondistended. Fundus firm, non tender, and 2 cm below the umbilicus. There was no lower extremity clubbing, cyanosis or edema. LABORATORY DATA: hematocrit was 32.9. She is blood type A positive, rubella immune, and her Pap was normal. She is status post varicella and Tdap vaccinations. DISCHARGE MEDICATIONS: 1. Tylenol as needed for pain. 2. Continue vitamins and levothyroxine. DISCHARGE DISPOSITION: Home. CONDITION: Good. PLAN: Followup in clinic in two weeks. Notably, the patient has had a history of mood disorder incl uding one episode of hallucinations not associated with drug use. She was counseled that she is at h igh risk for having mood problems and to follow up sooner than two weeks as needed for iss ues. She was counseled that if she hallucinates, she needs to immediately go to the emergency room a s she would be higher risk for infanticide. TD: 03/24/2020 10:41
[2020-03-24 14:24] VITALS: BP 123/68
--- NOTE | 2020-03-24 16:26 | Labor Flowsheet ---
Labor Flowsheet Datetime Report Generated by CPN: 03/24/2020 16:26 Datetime: 03/24/2020 13:21 VITAL SIGNS NBP Sys/Trina/Mean (mmHg): 123 : 68 : 79 Pulse: 103 LaborFlag: Labor Datetime: 03/23/2020 20:00 SpO2 (%): 98 Datetime: 03/23/2020 14:03 Membranes Ruptured Date/Time: 03/23/2020 04:00 Membranes Rupture Method: Spontaneous Amniotic Fluid Color: Heavy Meconium Amniotic Fluid Amount: Large Amniotic Fluid Odor: Normal Datetime: 03/23/2020 13:25 UTERINE ACTIVITY Monitor Mode: External Frequency (min): 2-3 Quality: Strong Duration (sec): 50-60 Pattern: Normal: <= 5 Contractions in 10 Minutes Resting Tone (Palpate): Relaxed FHR Baseline Rate : 165 Decelerations: Variable Comments: audible decels, pt pushing, FHR in between pushing 160s Datetime: 03/23/2020 13:15 ASSESSMENT A Monitor Mode: Telemetry Variability: Moderate 6-25 bpm Accelerations: None Category: Category II Oxygen Method: Room Air STAGE 2 Pushing: Urge to Push Pushing Position: Pushing with Contractions Pushing Progress: Descent with Pushing; Perineal Bulging Datetime: 03/23/2020 13:03 Station: 1 Exam by: ruby [place] rn Datetime: 03/23/2020 12:59 VAGINAL EXAM Dilatation (cm): 10.0 Effacement (%): 100 I/O Interventions: Coon Discontinued Datetime: 03/23/2020 12:56 COMMUNICATION Communication: Report Given to @ samy Notification Reason: Labor Status Communication Comments: will be in for delivery Datetime: 03/23/2020 12:54 Provider Notified (Name): Dr. Samy Datetime: 03/23/2020 12:45 Temperature (C): 36.5 Monitor Interventions for FHR: Ultrasound Adjusted FHR Baseline Changes: No Baseline Change Actions for Decelerations: Side to Side Datetime: 03/23/2020 12:31 Patient Position/Activity: Right Lateral Hygiene: Bee Care; Underpad Changed; Peripad Changed Datetime: 03/23/2020 12:30 Monitor Interventions for UA: [place] Adjusted Datetime: 03/23/2020 12:19 PATIENT CARE IV/Blood Work: New IV Bag Hung; IV Bag Number @ 2 Datetime: 03/23/2020 11:26 PAIN Pain Scale: 0 Datetime: 03/23/2020 11:16 Respirations: 16 Datetime: 03/23/2020 11:00 Contraction Comments: toco adjusted, unable to determine ctx on strip Datetime: 03/23/2020 10:58 MEDICATIONS Pitocin (milliunits): Increased to @ 3 Datetime: 03/23/2020 10:20 Antiemetics/Antacids: Zofran (mg) @ 4 Datetime: 03/23/2020 10:19 Epidural Procedure: Loading Dose Epidural Procedure Other: Pump Started Datetime: 03/23/2020 10:01 PROCEDURE TIME OUT Procedure Verify: Correct Patient Identity; Correct Side and Site are Marked; Accurate Procedure Co nsent Form; Agreement on Procedure to be Done; Correct Patient Position; Addressed Need to Administer Antibiotics or Fluids for Irrigation; Safety Precautions Based on Patient History or Medication Use ANESTHESIA Epidural Positioning: Sitting Anesthesia Comments: addis aube Datetime: 03/23/2020 09:39 Analgesics/Sedatives: Fentanyl (mcg) @ 100 Datetime: 03/23/2020 09:32 Cervix, Consistency: Soft Datetime: 03/23/2020 09:30 Pain Coping: Breathing Through Contractions; Requesting Pain Medication or Epidural; Crying Datetime: 03/23/2020 09:00 Comfort Measures: Coaching; Back Rub Given; Hot/Cold Pack; Family Support Datetime: 03/23/2020 07:45 Patient Care Comments: jacuzzi Datetime: 03/23/2020 07:38 Cervix, Position: Midposition Datetime: 03/23/2020 07:32 Pain Assessment Comments: feeling rectal pressure Datetime: 03/23/2020 06:39 Medication Comments: LR started 150ml/hr
== END 2020-03-24 15:45 | disposition home or self-care (01) | DRG 807 ==
LOC: WFO 04:53 → FBP 04:57 → WFO 05:50 → UNDOADMIN 05:51 → FBP 05:51
PROVIDERS: ADMIT Obstetrics & Gynecology; ATTEND Obstetrics & Gynecology
PROC: 10E0XZZ Delivery of Products of Conception, External Approach (ICD-10-PCS; principal; 2020-03-23)
DX: O77.0 Labor and delivery complicated by meconium in amniotic fluid (principal); Z37.0 Single live birth; O70.0 First degree perineal laceration during delivery; O99.344 Other mental disorders complicating childbirth; F41.9 Anxiety disorder, unspecified; O99.284 Endocrine, nutritional and metabolic diseases complicating childbirth; O99.334 Smoking (tobacco) complicating childbirth; F17.210 Nicotine dependence, cigarettes, uncomplicated; Z3A.39 39 weeks gestation of pregnancy; Z91.5 Personal history of self-harm; Z91.410 Personal history of adult physical and sexual abuse
CPT/HCPCS: 84112; 85025; 86850; 86900; 86901; 99212; A9270; J7120

== ENCOUNTER 2020-04-08 17:39 | Outpatient (CLI) | payer MEDICAID | END 2020-04-08 18:40 | disposition home or self-care (01) | LOC: WFO 17:39 → FBP 17:43 → WFO 18:40 | PROVIDERS: ATTEND Obstetrics & Gynecology | DX: Z39.1 Encounter for care and examination of lactating mother (principal) | CPT/HCPCS: 99404 ==

== ENCOUNTER 2020-08-21 20:02 | Outpatient (CLI) | payer MEDICAID | END 2020-08-21 20:03 | disposition home or self-care (01) | LOC: COV 20:02 | PROVIDERS: ATTEND Family Medicine | DX: R05 Cough (principal); R06.02 Shortness of breath; M79.10 Myalgia, unspecified site; R53.83 Other fatigue; R07.0 Pain in throat; R19.7 Diarrhea, unspecified; R43.9 Unspecified disturbances of smell and taste; R09.81 Nasal congestion; J34.89 Other specified disorders of nose and nasal sinuses; R11.0 Nausea; Z20.822 Contact with and (suspected) exposure to COVID-19 ==

== ENCOUNTER 2022-12-16 17:45 | Outpatient (CLI) | payer MEDICAID | END 2022-12-16 18:00 | disposition home or self-care (01) | LOC: LAB.N 17:45 | PROVIDERS: ATTEND Registered Nurse | DX: N12 Tubulo-interstitial nephritis, not specified as acute or chronic (principal) | CPT/HCPCS: 87086; 87181 ==

== ENCOUNTER 2023-04-25 18:11 | Outpatient (CLI) | payer OTHER ==
--- NOTE | 2023-04-26 10:32 | Ultrasound Report ---
PROCEDURE: OB First Trimester INDICATIONS: POSITIVE TEST OUTSIDE/PRIOR DATING DATA: Last menstrual period (LMP): 02/18/2023. LMP-based estimated date of delivery (TERRENCE): 11/25/2023. First dating scan (date and location): 04/25/2023. Estimated date of delivery (TERRENCE) from first dating scan: 11/22/2023. TECHNIQUE: Real-time scanning was performed of the fetus and maternal pelvic organs, with image documentation. COMPARISON: None FINDINGS: Intrauterine gestational sac present. Embryo: 2.95 cm, corresponding to 9 weeks 6 days. Heart rate: 178 bpm. Other: Small perigestational hemorrhage measuring 1.1 x 0.9 x 2.2 cm. Measurement variability in dating: +/- 4 weeks by LMP, +/- 7 days by mean sac diameter (use before 6 weeks gestation if crown-rump length not able to be measured), +/- 5 days by crown-rump length (6-12 weeks gestation). Maternal organs: Ovaries appear within normal limits. IMPRESSION: Single living intrauterine at 9 weeks 6 days. Findings are concordant with clinical dating. Small perigestational hemorrhage. Reviewed by: Wing Ocasio on 04/26/2023 10:30 AM PDT Approved by: Wing Ocasio on 04/26/2023 10:30 AM PDT Station ID: [id number]
== END 2023-04-25 18:12 | disposition home or self-care (01) ==
LOC: DI 18:11
PROVIDERS: ATTEND Nurse Practitioner
DX: O46.91 Antepartum hemorrhage, unspecified, first trimester (principal); Z3A.09 9 weeks gestation of pregnancy

== ENCOUNTER 2023-05-09 10:27 | Outpatient (CLI) | payer OTHER ==
[2023-05-09 10:50] LABS: BASOPHILS # (AUTO) 0.1 10^3/uL (0.0-0.1); BASOPHILS % (AUTO) 0.9 %; EOSINOPHILS # (AUTO) 0.2 10^3/uL (0.0-0.7); EOSINOPHILS % (AUTO) 2.7 %; HCT - HEMATOCRIT 36.9 % (37.0-47.0); HGB - HEMOGLOBIN 12.7 g/dL (12.0-16.0); LYMPHOCYTES # (AUTO) 2.1 10^3/uL (1.5-3.5); LYMPHOCYTES % (AUTO) 25.8 %; MEAN CORPUSCULAR HEMOGLOBIN 29.5 pg (27.0-31.0); MEAN CORPUSCULAR HGB CONC 34.4 g/dL (32.0-36.0); MEAN CORPUSCULAR VOLUME 85.6 fL (81.0-99.0); MONOCYTES # (AUTO) 0.3 10^3/uL (0.0-1.0); MONOCYTES % (AUTO) 3.8 %; NEUTROPHILS # (AUTO) 5.4 10^3/uL (1.5-6.6); NEUTROPHILS % (AUTO) 66.6 %; PLT - PLATELET COUNT 301 10^3/uL (130-450); RED BLOOD COUNT 4.31 10^6/uL (4.20-5.40); RED CELL DISTRIBUTION WIDTH 12.2 % (12.0-15.0); WHITE BLOOD COUNT 8.2 x10^3/uL (4.8-10.8)
[2023-05-09 11:02] LABS: CREATININE,URINE 145.5 mg/dL; PROTEIN/CREATININE RATIO,URINE 0.1 (<=0.2)
[2023-05-09 11:03] LABS: CREATININE 0.4 mg/dL (0.6-1.3)
[2023-05-09 11:18] LABS: THYROID STIMULATING HORMONE 1.48 uIU/mL (0.34-5.60)
[2023-05-09 12:29] LABS: ESTIMATED AVERAGE GLUCOSE 88 mg/dL (70-100); HEMOGLOBIN A1c% 4.7 % (4.27-6.07)
[2023-05-10 03:09] LABS: HBsAG SCREEN Negative (Negative)
[2023-05-10 05:12] LABS: HCV AB Non Reactive (Non Reactive); HIV SCREEN 4TH GENERATION Non Reactive (Non Reactive)
[2023-05-10 06:10] LABS: RPR Non Reactive (Non Reactive)
[2023-05-10 12:09] LABS: VARICELLA-ZOSTER AB IGG <135 index (Immune >165)
== END 2023-05-09 10:28 | disposition home or self-care (01) ==
LOC: LAB 10:27
PROVIDERS: ATTEND Obstetrics & Gynecology
DX: Z34.90 Encounter for supervision of normal pregnancy, unspecified, unspecified trimester (principal)
CPT/HCPCS: 36415; 82565; 82570; 83036; 84156; 84443; 84450; 85025; 86592; 86762; 86787; 86803; 86850; 86900; 86901; 87340; 87389

== ENCOUNTER 2023-06-06 13:47 | Outpatient (CLI) | payer OTHER ==
[2023-06-08 21:07] LABS: AFP MOM 0.72 (.); AFP VALUE 21.2 ng/mL (.); DIA MOM 1.31 (.); DIA VALUE 200.27 pg/mL (.); DSR (BY AGE) 1 IN 993 (.); DSR (SECOND TRIMESTER) 1 IN 10000 (.); GEST. AGE ON COLLECTION DATE 15.4 WEEKS (.); HCG MOM 0.47 (.); HCG VALUE 22747 mIU/mL (.); INSULIN DEP DIABETES No (.); MATERNAL AGE AT EDD 25.8 yr (.); MULTIPLE GESTATION No (.); OPEN SPINA BIFIDA RISK 1 IN 10000 (.); RACE Caucasian (.); RESULTS Report (.); TEST RESULTS *Screen Negative* (.); TRISOMY 18 RISK Not increased (.); UE3 MOM 0.99 (.); UE3 VALUE 0.81 ng/mL (.); WEIGHT 164 lbs (.)
== END 2023-06-06 13:48 | disposition home or self-care (01) ==
LOC: LAB 13:47
PROVIDERS: ATTEND Obstetrics & Gynecology
DX: Z34.90 Encounter for supervision of normal pregnancy, unspecified, unspecified trimester (principal)
CPT/HCPCS: 81511

== ENCOUNTER 2023-07-08 16:49 | Outpatient (CLI) | payer OTHER ==
--- NOTE | 2023-07-09 08:32 | Ultrasound Report ---
PROCEDURE: OB 14+ Weeks INDICATIONS: SUPERVISION OF OUTSIDE/PRIOR DATING DATA: Last menstrual period (LMP): 02/18/2023. LMP-based estimated date of delivery (TERRENCE): 11/25/2023 (working TERRENCE). First dating scan (date and location): 04/25/2023. Estimated date of delivery (TERRENCE) from first dating scan: 11/22/2023. TECHNIQUE: Real-time scanning was performed of the fetus, with image documentation and biometric measurements. COMPARISON: 04/25/2023 FINDINGS: General: A single living intrauterine gestation is present. Presentation: Vertex Placenta: Placental position is posterior, without previa. Amniotic fluid index: 16 cm, within normal limits for gestational age. heart rate: 145 beats per minute. Maternal cervical canal: 4.7 cm long; normal length is 2.5 cm or more. biometrics: Biparietal diameter: 4.76 cm, 20 weeks and 3 days, 67 percentile Head circumference: 18.3 cm, 20 weeks and 5 days, 73rd percentile Abdominal circumference: 15.5 cm, 20 weeks and 5 days, 68th percentile Femur length: 3.47 cm, 21 weeks, 75th percentile Estimated gestational age from initial scan: 20 weeks Composite gestational age from present scan: 20 weeks and 3 days Estimated weight and percentile: 377 g, 86 percentile, Measurement variability for biometric dating: +/- 10 days from 12-20 weeks gestation, +/- 2 weeks fro m 20-30 weeks gestation, +/- 3 weeks for 30 weeks gestation or later. Anatomic survey: Neuro: Ventricles are non-dilated at less than 10 mm. Cisterna magna is normal at 3-11 mm. Cerebe llum is normal in size and morphology. Nuchal skin fold: Normal at less than 6 mm between 14-20 weeks gestational age. Face: Profile view appears normal. Nose and lips not evaluated Spine: No evidence for spina bifida. Heart: Four-chamber view is present. Outflow tracts not evaluated. Diaphragm: Diaphragm is intact. Stomach: Left-sided stomach is present. Kidneys: No hydronephrosis. Normal is less than 5 mm in 2nd trimester, less than 7 mm in 3rd trimester. Cord: 3-vessel cord has orthotopic insertion. Bladder: Normal in size. Extremities: Not evaluated IMPRESSION: Living intrauterine gestation at 20 weeks. EFW is at the 86th percentile, at the upper l imit of normal. Normal fluid. Nose/lips, cardiac outflow tracts, and extremities not evaluated. No significant anatomic abnormaliti es elsewhere on routine survey. Recommend follow-up. Reviewed by: Kev Montiel MD on 07/09/2023 8:31 AM PST Approved by: Kev Montiel MD on 07/09/2023 8:31 AM PST Station ID: [id number]
== END 2023-07-08 16:50 | disposition home or self-care (01) ==
LOC: DI 16:49
PROVIDERS: ATTEND Obstetrics & Gynecology
DX: Z34.92 Encounter for supervision of normal pregnancy, unspecified, second trimester (principal)

== ENCOUNTER 2023-08-01 08:00 | Outpatient (CLI) | payer OTHER ==
[2023-08-01 15:13] LABS: BILIRUBIN,URINE NEGATIVE (NEGATIVE); GLUCOSE, URINE (UA) NEGATIVE (NEGATIVE); KETONES,URINE (UA) NEGATIVE (NEGATIVE); LEUKOCYTE ESTERASE, URINE NEGATIVE (NEGATIVE); NITRITE,URINE NEGATIVE (NEGATIVE); OCCULT BLOOD,URINE NEGATIVE (NEGATIVE); PROTEIN,URINE NEGATIVE (NEGATIVE); UROBILINOGEN,URINE 0.2 (NORMAL) E.U./dL (NORMAL)
[2023-08-01 15:14] LABS: CLARITY,URINE CLEAR (CLEAR)
[2023-08-01 15:21] LABS: BACTERIA,URINE Few /HPF (None Seen); RBC,URINE None Seen /HPF (0-5); SQUAMOUS EPITHELIAL CELL,UR FEW Squamous (<= Few); WBC,URINE 0-3 /HPF (0-5)
== END 2023-08-01 23:59 | disposition home or self-care (01) ==
LOC: LAB.WC 08:00
PROVIDERS: ATTEND Obstetrics & Gynecology
DX: N39.41 Urge incontinence (principal)
CPT/HCPCS: 81001; 87086

== ENCOUNTER 2023-08-29 10:09 | Outpatient (CLI) | payer OTHER ==
[2023-08-29 11:22] LABS: HCT - HEMATOCRIT 35.3 % (37.0-47.0); HGB - HEMOGLOBIN 11.7 g/dL (12.0-16.0); MEAN CORPUSCULAR HEMOGLOBIN 29.5 pg (27.0-31.0); MEAN CORPUSCULAR HGB CONC 33.1 g/dL (32.0-36.0); MEAN CORPUSCULAR VOLUME 88.9 fL (81.0-99.0); RED BLOOD COUNT 3.97 10^6/uL (4.20-5.40); RED CELL DISTRIBUTION WIDTH 12.9 % (12.0-15.0); WHITE BLOOD COUNT 10.9 x10^3/uL (4.8-10.8)
--- NOTE | 2023-08-29 12:51 | Ultrasound Report ---
PROCEDURE: Duplex Ext Veins Right INDICATIONS: CALF PAIN TECHNIQUE: Real-time imaging, as well as color and pulse Doppler interrogation, were performed of the lower extr emity deep veins from the inguinal ligament to the popliteal fossa. Attempted visualization of the ca lf veins was performed. COMPARISON: None. FINDINGS: The deep veins are normally compressible, and free of intraluminal thrombus. Color and pu lse Doppler demonstrate normal phasic intraluminal flow. There is normal augmentation response to di stal compression maneuver. IMPRESSION: No deep venous thrombosis of the visualized lower extremity. Reviewed by: Greer Winn MD on 08/29/2023 12:50 PM PST Approved by: Greer Winn MD on 08/29/2023 12:50 PM [facility] Station ID: [id number]
== END 2023-08-29 10:10 | disposition home or self-care (01) ==
LOC: LAB 10:09
PROVIDERS: ATTEND Obstetrics & Gynecology
DX: O99.891 Other specified diseases and conditions complicating pregnancy (principal); M79.661 Pain in right lower leg
CPT/HCPCS: 36415; 82950; 85027

== ENCOUNTER 2023-09-29 13:04 | Outpatient (CLI) | payer OTHER ==
[2023-09-29 14:19] LABS: RUPTURE OF MEMBRANES PLUS NEGATIVE (NEGATIVE)
--- NOTE | 2023-09-29 15:21 | PROVIDER PROGRESS NOTE ---
- Procedures OB Procedure Performed: NST NST Procedure: NST Procedure Start Time 17:40 Stop Time 18:40 Procedure Details: Please patient is a 23-year-old [id number] at 31 weeks 6 days gestation presenting today for some leaking fluid that she noticed at work. She also noticed some cramping, down in her thighs/groin. NST Performed 09/29/2023 NST Read 09/29/2023 FHT: 130 bpm baseline, moderate variability, accelerations present, no decelerations. Reactive NST [place]: 1-3 SVE: 0/0/-3 Diagnosis 31 weeks gestation -Proceed with routine care False labor -No cervical change on exam. Rule out rupture -ROM plus negative. Did not continue to leak.
[2023-09-29 16:13] LABS: BILIRUBIN,URINE NEGATIVE (NEGATIVE); GLUCOSE, URINE (UA) NEGATIVE (NEGATIVE); KETONES,URINE (UA) 15 mg/dL (NEGATIVE); LEUKOCYTE ESTERASE, URINE NEGATIVE (NEGATIVE); NITRITE,URINE NEGATIVE (NEGATIVE); OCCULT BLOOD,URINE NEGATIVE (NEGATIVE); PROTEIN,URINE NEGATIVE (NEGATIVE); UROBILINOGEN,URINE 0.2 (NORMAL) E.U./dL (NORMAL)
[2023-09-29 16:36] LABS: CLARITY,URINE CLEAR (CLEAR)
== END 2023-09-29 17:36 | disposition home or self-care (01) ==
LOC: FBP 13:04 → WFO 13:04
PROVIDERS: ATTEND Obstetrics & Gynecology
DX: O47.03 False labor before 37 completed weeks of gestation, third trimester (principal); O99.891 Other specified diseases and conditions complicating pregnancy; N89.8 Other specified noninflammatory disorders of vagina; Z3A.31 31 weeks gestation of pregnancy; R10.9 Unspecified abdominal pain
CPT/HCPCS: 59025; 81001; 81003; 84112; 99215

== ENCOUNTER 2023-10-18 08:28 | Outpatient (CLI) | payer OTHER ==
[2023-10-18 08:41] VITALS: BP 137/77
[2023-10-18 09:21] LABS: RUPTURE OF MEMBRANES PLUS NEGATIVE (NEGATIVE)
[2023-10-18 10:03] LABS: RUPTURE OF MEMBRANES PLUS NEGATIVE (NEGATIVE)
[2023-10-18 10:25] LABS: BILIRUBIN,URINE NEGATIVE (NEGATIVE); GLUCOSE, URINE (UA) NEGATIVE (NEGATIVE); KETONES,URINE (UA) NEGATIVE (NEGATIVE); LEUKOCYTE ESTERASE, URINE SMALL (NEGATIVE); NITRITE,URINE NEGATIVE (NEGATIVE); OCCULT BLOOD,URINE SMALL (NEGATIVE); PROTEIN,URINE NEGATIVE (NEGATIVE); UROBILINOGEN,URINE 0.2 (NORMAL) E.U./dL (NORMAL)
[2023-10-18 10:34] LABS: CLARITY,URINE CLEAR (CLEAR)
--- NOTE | 2023-10-18 10:34 | Ultrasound Report ---
PROCEDURE: OB Follow up INDICATIONS: labor. check growth and fluid OUTSIDE/PRIOR DATING DATA: Last menstrual period (LMP): 02/18/2023. LMP-based estimated date of delivery (TERRENCE): 11/25/2023. First dating scan (date and location): 04/25/2023. Estimated date of delivery (TERRENCE) from first dating scan: 11/22/2023. The below data below was generated using the working TERRENCE of 11/25/2023 TECHNIQUE: Real-time scanning was performed of the fetus, with image documentation and biometric measurements. Endovaginal scanning: Not performed. COMPARISON: 04/25/2023, 07/08/2023 FINDINGS: General: A single living intrauterine gestation is present. Presentation: Cephalic Placenta: Placental position is posterior, without previa. Amniotic fluid index: 18.1 cm, within normal limits for gestational age. heart rate: 152 beats per minute. Maternal cervical canal: 3.7 cm long; normal length is 2.5 cm or more. biometrics: Biparietal diameter: 8.7 cm, 35 weeks, 4 days. 76.6%. Head circumference: 31.8 cm, 35 weeks, 6 days, 45.5% Abdominal circumference: 31.2 cm, 35 weeks, 1 day, 72.5% Femur length: 6.8 cm, 35 weeks, 0 day, 52.9% Estimated gestational age from initial scan: 34 weeks, 4 days Composite gestational age from present scan: 35 weeks, 3 days Estimated weight and percentile: 2623 g, 64.9% Measurement variability in biometric dating: +/- 10 days from 12-20 weeks gestation, +/- 2 weeks from 20-30 weeks gestation, +/- 3 weeks at 30 weeks gestation or more. Other: Not applicable. IMPRESSION: 1. Single live intrauterine gestation with fetus in vertex presentation. heart rate is 152 bpm. Normal FLAKITO at 18.1 cm. 2. Estimated weight is at 64.9%. Reviewed by: Jose Maria Whitten MD on 10/18/2023 10:33 AM PDT Approved by: Jose Maria Whitten MD on 10/18/2023 10:33 AM PDT Station ID: [id number]
[2023-10-18 10:48] LABS: BACTERIA,URINE Few /HPF (None Seen); RBC,URINE 0-5 /HPF (0-5); SQUAMOUS EPITHELIAL CELL,UR FEW Squamous (<= Few); WBC,URINE 0-3 /HPF (0-5)
--- NOTE | 2023-10-18 21:11 | PROVIDER PROGRESS NOTE ---
- HPI Chief Complaint: Labor (and ? ROM) Current : Vital Signs Temperature 98.1 F 10/18/23 08:36 Heart Rate 104 H 10/18/23 08:36 Respiratory Rate 17 10/18/23 08:36 Blood Pressure 137/77 H 10/18/23 08:36 Temperature 98.1 F 10/18/23 08:36 Heart Rate 104 H 10/18/23 08:36 Respiratory Rate 17 10/18/23 08:36 Blood Pressure 137/77 H 10/18/23 08:36 O2 Saturation If not protocol: Oxygen Flow, liters/minute 34 weeks 1d, . presents after waking at 3 am with fluid and cramping. She hydrated and rested until morning but was still wet and cramping so came for evaluation. Both of her other children were born at term. She denies dysuria. She says she is well hydrated. - Exam nitrazine of fluid is positive. ferning and ROM+ are negative. abdomen is not tender vulva appears dry. speculum is placed and there is white discharge but no fluid. patient coughs and no fluid is seen. ferning and ROM + test are repeated and again negative. cervix appears closed. Urine has pH of 7.0. - Procedures OB Procedure Performed: NST Diagnosis/Indication for NST: labor NST Procedure: NST Procedure Start Time 13:18 Stop Time 15:34 Patient States Movement Yes Reactive for of 32 weeks gestation or more. NST tracing contains at least two heart rate accelerations that are at least 15 beats per minute above the baseline rate and lasting at least 15 seconds from onset to return to baseline within a twenty minute period. she is martine frequently and then these subside. Service Date of procedure: 10/18/23 Procedure Details: Utrasound is done with FLAKITO of 18. normally grown fetus. Findings: reactive NST - Plan Plan: discharge home, not in labor and not with ruptured membranes. Urine culture is pending. Folow up as scheduled.
== END 2023-10-18 10:37 | disposition home or self-care (01) ==
LOC: WFO 08:28 → FBP 08:28 → WFO 10:37
PROVIDERS: ATTEND Obstetrics & Gynecology
DX: O99.891 Other specified diseases and conditions complicating pregnancy (principal); R10.9 Unspecified abdominal pain; Z3A.34 34 weeks gestation of pregnancy
CPT/HCPCS: 59025; 81001; 84112; 87086; 87797; 99214

== ENCOUNTER 2023-10-31 08:00 | Outpatient (CLI) | payer OTHER ==
[2023-10-31 16:39] LABS: BILIRUBIN,URINE NEGATIVE (NEGATIVE); GLUCOSE, URINE (UA) NEGATIVE (NEGATIVE); KETONES,URINE (UA) NEGATIVE (NEGATIVE); LEUKOCYTE ESTERASE, URINE TRACE (NEGATIVE); NITRITE,URINE NEGATIVE (NEGATIVE); OCCULT BLOOD,URINE NEGATIVE (NEGATIVE); PROTEIN,URINE NEGATIVE (NEGATIVE); UROBILINOGEN,URINE 0.2 (NORMAL) E.U./dL (NORMAL)
[2023-10-31 16:57] LABS: BACTERIA,URINE Few /HPF (None Seen); CLARITY,URINE CLEAR (CLEAR); RBC,URINE None Seen /HPF (0-5); SQUAMOUS EPITHELIAL CELL,UR FEW Squamous (<= Few); WBC,URINE 0-3 /HPF (0-5)
== END 2023-10-31 23:59 | disposition home or self-care (01) ==
LOC: LAB.WC 08:00
PROVIDERS: ATTEND Obstetrics & Gynecology
DX: O99.891 Other specified diseases and conditions complicating pregnancy (principal); N39.41 Urge incontinence; Z36.89 Encounter for other specified antenatal screening
CPT/HCPCS: 81001; 87086; 87797

== ENCOUNTER 2023-10-31 16:26 | Outpatient (CLI) | payer OTHER ==
--- NOTE | 2023-10-31 16:43 | PROVIDER PROGRESS NOTE ---
- HPI Chief Complaint: Labor Check - Procedures OB Procedure Performed: NST NST Procedure: NST Procedure Start Time 13:18 Stop Time 15:34 Service Date of procedure: 10/31/23 (Read 10/31/23) - Plan Plan: Patient is a 23-year-old -0-1-2 at 36 weeks 3 days gestation. She presented today in clinic complaining of mild right-sided muscular pain, and after she left she went and had spicy food and developed contractions. Not having contractions every few minutes. Good movement. Think she may also be leaking urine versus fluid. No bleeding. Physical Exam Constitutional: alert, no acute distress, well hydrated, well developed, well nourished, appropriate dress. Cardiovascular: Regular rate and rhythm. Respiratory: no respiratory distress. Abdomen: nondistended, nontender, no guarding. Psych: affect and mood appropriate, normal interaction, good eye contact. SVE: 1/0/-3 FHT: 150 bpm baseline, moderate variability, accelerations present, no decelerations. Reactive NST (performed and read 10/31/2023) Unity: 2 to 5 minutes Labs: ROM plus: Negative Assessment and plan False labor: -Patient was rechecked after 1 hour with no cervical change. Offered to stay an additional hour for recheck, but patient declined. - labor precautions given Rule out rupture -Amniotic sac appears intact. No continued leaking. Negative rupture of membranes swab. Did not continue to leak.
[2023-10-31 17:01] VITALS: BP 128/83; O2SAT 98
[2023-10-31 17:12] LABS: RUPTURE OF MEMBRANES PLUS NEGATIVE (NEGATIVE)
[2023-10-31 19:08] LABS: BACTERIAL VAGINOSIS DNA NEGATIVE (NEGATIVE); CANDIDA GLABRATA DNA NEGATIVE (NEGATIVE); CANDIDA GROUP DNA NEGATIVE (NEGATIVE); CANDIDA KRUSEI DNA NEGATIVE (NEGATIVE); TRICHOMONAS VAGINALIS DNA NEGATIVE (NEGATIVE)
== END 2023-10-31 18:32 | disposition home or self-care (01) ==
LOC: WFO 16:26 → FBP 16:27 → WFO 18:32
PROVIDERS: ATTEND Obstetrics & Gynecology
DX: O47.03 False labor before 37 completed weeks of gestation, third trimester (principal); O99.891 Other specified diseases and conditions complicating pregnancy; N89.8 Other specified noninflammatory disorders of vagina; Z3A.36 36 weeks gestation of pregnancy; N39.41 Urge incontinence; Z36.89 Encounter for other specified antenatal screening
CPT/HCPCS: 59025; 81001; 81514; 84112; 87086; 87797; 99215

== ENCOUNTER 2023-11-01 18:48 | Outpatient (CLI) | payer OTHER ==
[2023-11-01 19:04] VITALS: BP 128/78; O2SAT 98
[2023-11-01] MEDS: oxyCODONE 5 MG TABLET PO STA (20:50)
[2023-11-01] MEDS: DOXYLAMINE 25 MG TABLET PO STA (20:50)
--- NOTE | 2023-11-01 20:58 | PROVIDER PROGRESS NOTE ---
- HPI Chief Complaint: Labor Current : at 36w+ with her 3rd baby. prodromal labor that is becoming more and more sharp and uncomfortable. some headache. feels like her pelvis is splitting. no urinary sx. not constipated. no bleeding or leaking of fluid. baby moving well. does not have a belly band. still working but thinks no more. here with her . Vital Signs Temperature 98.4 F 11/01/23 19:01 Heart Rate 112 H 11/01/23 19:01 Respiratory Rate 18 11/01/23 19:01 Blood Pressure 128/78 11/01/23 19:01 O2 Saturation 98 11/01/23 19:01 Temperature 98.4 F 11/01/23 19:14 Heart Rate 103 H 11/01/23 19:14 Respiratory Rate 18 11/01/23 19:14 Blood Pressure 128/78 11/01/23 19:14 O2 Saturation 98 11/01/23 19:01 If not protocol: Oxygen Flow, liters/minute - Exam cervix is 1 cm. high. she is uncomfortable. teary eyed at times. - Procedures OB Procedure Performed: NST Diagnosis/Indication for NST: labor NST Procedure: NST Procedure Start Time 16:35 Stop Time 18:30 Reactive for of 32 weeks gestation or more. NST tracing contains at least two heart rate accelerations that are at least 15 beats per minute above the baseline rate and lasting at least 15 seconds from onset to return to baseline within a twenty minute period. Service Date of procedure: 11/01/23 Findings: reactive NST - Plan Plan: not in labor. will give her unisom and oxycodone 10 mg now to help her sleep. rx for unisom and percocet for home. use explained. to help her sleep. also, recommend she get a belly band. we can right a note for work as needed. does not appear that there is anything going on concerning or pathologic at this time. next appt is on Tuesday
== END 2023-11-01 21:00 | disposition home or self-care (01) ==
LOC: WFO 18:48 → FBP 18:49 → WFO 21:00
PROVIDERS: ATTEND Obstetrics & Gynecology
DX: O47.03 False labor before 37 completed weeks of gestation, third trimester (principal); Z3A.36 36 weeks gestation of pregnancy
CPT/HCPCS: 59025; 99214; A9270; 99213

== ENCOUNTER 2023-11-06 11:17 | Outpatient (CLI) | payer OTHER ==
[2023-11-06 11:34] VITALS: BP 132/86
[2023-11-06 12:08] LABS: RUPTURE OF MEMBRANES PLUS NEGATIVE (NEGATIVE)
--- NOTE | 2023-11-06 22:37 | PROVIDER PROGRESS NOTE ---
- HPI Chief Complaint: Labor Check (possible SROM) Current : Current EDU 11/25/23 Gestation 37 Weeks and 2 Days 4 Para 2 Vital Signs Temperature 98.1 F 11/06/23 11:25 Heart Rate 128 H 11/06/23 11:25 Respiratory Rate 14 11/06/23 11:25 Blood Pressure 132/86 H 11/06/23 11:25 Temperature 98.1 F 11/06/23 11:25 Heart Rate 128 H 11/06/23 11:25 Respiratory Rate 14 11/06/23 11:25 Blood Pressure 132/86 H 11/06/23 11:25 O2 Saturation If not protocol: Oxygen Flow, liters/minute - Exam ROM + test is negative. cervix closed/70/-2 baby category 1 on monitor. - Procedures NST Procedure: NST Procedure Start Date 11/06/23 Start Time 11:29 Stop Time 12:23 Vibroacoustic Stimulation Used No Patient States Movement Yes Findings: patient is not in labor and no ROM by ROM+ test. discharge home. f/u as needed.
== END 2023-11-06 12:40 | disposition home or self-care (01) ==
LOC: WFO 11:17 → FBP 11:19 → WFO 12:40
PROVIDERS: ATTEND Obstetrics & Gynecology
DX: Z34.83 Encounter for supervision of other normal pregnancy, third trimester (principal)
CPT/HCPCS: 59025; 84112; 99214

== ENCOUNTER 2023-11-15 19:48 | Outpatient (CLI) | payer MEDICAID ==
[2023-11-15 20:44] LABS: RUPTURE OF MEMBRANES PLUS NEGATIVE (NEGATIVE)
[2023-11-15 21:29] VITALS: BP 128/81
--- NOTE | 2023-11-16 21:27 | PROVIDER PROGRESS NOTE ---
- HPI Chief Complaint: Other (labor check and ? sROM at term) Current : Current EDU 11/25/23 Gestation 38 Weeks and 4 Days 4 Para 2 Vital Signs Temperature 98.1 F 11/15/23 20:40 Heart Rate 103 H 11/15/23 20:40 Respiratory Rate 11/15/23 20:40 Blood Pressure 128/81 H 11/15/23 20:40 Temperature 98.1 F 11/15/23 20:40 Heart Rate 103 H 11/15/23 20:40 Respiratory Rate 20 11/15/23 20:40 Blood Pressure 128/81 H 11/15/23 20:40 O2 Saturation If not protocol: Oxygen Flow, liters/minute - Exam cervix 1 cm. not in labor. - Procedures NST Procedure: NST Procedure Start Date 11/15/23 Start Time 19:56 Stop Time 21:06 Vibroacoustic Stimulation Used No Patient States Movement Yes Service Date of procedure: 11/15/23 Procedure Details: Reactive for of 32 weeks gestation or more. NST tracing contains at least two heart rate accelerations that are at least 15 beats per minute above the baseline rate and lasting at least 15 seconds from onset to return to baseline within a twenty minute period. Findings: reactive nst. not in labor. ROM + test is negative as is nitrazine. so no ROM - Plan Plan: discharge home. f/u as scheduled for induction on Tuesday.
== END 2023-11-15 21:40 | disposition home or self-care (01) ==
LOC: WFO 19:48 → FBP 19:50 → WFO 21:40
PROVIDERS: ATTEND Obstetrics & Gynecology
DX: O47.1 False labor at or after 37 completed weeks of gestation (principal); Z3A.38 38 weeks gestation of pregnancy
CPT/HCPCS: 59025; 84112; 99215

== ENCOUNTER 2023-11-21 07:04 | Inpatient (IN) | payer MEDICAID ==
[2023-11-21] MEDS ORDERED: ONDANSETRON 4 MG/2 ML VIAL IVP PRN ×2 (08:20→13:55)
[2023-11-21] MEDS ORDERED: TRANEXAMIC ACID IN NACL 1,000 MG/100 ML BAG IV PRN (08:20)
[2023-11-21] MEDS ORDERED: NIFEdipine 10 MG CAPSULE PO PRN (08:20)
[2023-11-21] MEDS ORDERED: fentaNYL 100 MCG/2 ML VIAL IVP PRN (08:20)
[2023-11-21] MEDS ORDERED: lidocaine 1% 20 ML MDV ID PRN (08:20)
[2023-11-21] MEDS ORDERED: SODIUM CHLORIDE FLUSH 0.9% 10 ML SYRINGE IVP PRN (08:20)
[2023-11-21] MEDS ORDERED: LABETALOL 20 MG/4 ML SYRINGE IVP PRN ×3 (08:20)
[2023-11-21] MEDS ORDERED: miSOPROStoL 200 MCG TABLET PR PRN (08:20)
[2023-11-21] MEDS ORDERED: CARBOPROST TROMETHAMINE 250 MCG/ML VIAL IM PRN (08:20)
[2023-11-21] MEDS ORDERED: miSOPROStoL 200 MCG TABLET BC PRN (08:20)
[2023-11-21] MEDS ORDERED: hydrALAZINE INJ 20 MG/ML VIAL IVP PRN ×2 (08:20)
[2023-11-21] MEDS ORDERED: METHYLERGONOVINE 0.2 MG/ML VIAL IM PRN (08:20)
[2023-11-21] MEDS ORDERED: OXYTOCIN 10 UNIT/ML VIAL IM PRN (08:20)
--- NOTE | 2023-11-21 08:34 | HISTORY & PHYSICAL EXAMINATION ---
Admit History - Visit Reason Visit Reason: Contractions - : 4 Parity: 2 : 1 Care: positive: [facility] Risk/History: positive: Labor augmentation Complications This : positive: Other (Anxiety/depression, varicella non-immune, tobacco use during ) Smoking Status: Current every day smoker - Mother's Labs Mother's Blood Type: positive: A Mother's RH: positive: Positive GBS: positive: Group B Step Negative Rubella Status: positive: Immune - Other Maternal History Other Maternal History: Med: Anxiety, depression, migraines Surg: Denies Social: , tobacco use and trying to decrease - HPI Current EDU 11/25/23 Gestation 39 Weeks and 3 Days 4 Vital Signs Temperature 98.6 F 11/21/23 07:40 Heart Rate 89 11/21/23 07:40 Respiratory Rate 16 11/21/23 07:40 Blood Pressure 129/84 H 11/21/23 07:40 Temperature 98.6 F 11/21/23 07:40 Heart Rate 89 11/21/23 07:40 Respiratory Rate 16 11/21/23 07:40 Blood Pressure 129/84 H 11/21/23 07:40 O2 Saturation If not protocol: Oxygen Flow, liters/minute - NST Procedure NST Procedure Start Time 19:56 Stop Time 21:06 Direct admission for induction Meds/Allgy - Home Medications Home Medications: Ambulatory Orders Medication Instructions Recorded Confirmed Levothyroxine Sodium 25 mcg PO DAILY 11/26/19 11/26/19 Oxycodone HCl/Acetaminophen 1 - 2 each PO HS PRN #10 tab 11/01/23 [Oxycodone-Acetaminophen 5-325] - Allergies Allergies/Adverse Reactions: Allergies Allergy/AdvReac Type Severity Reaction Status Date / Time Penicillins Allergy Unknown Hives Verified 11/25/19 23:59 dairy AdvReac Intermediate Nausea Uncoded 11/25/19 23:59 eggs AdvReac Intermediate Cramps Uncoded 11/25/19 23:59 gluten AdvReac Intermediate Cramps Uncoded 11/25/19 23:59 cantalope, honeydew AdvReac Unknown Cramps Uncoded 11/25/19 23:59 Review of Systems - All Other Systems All Other Systems: reports: Reviewed and negative Physical - Abdominal Exam Vital Signs: Temp Pulse Resp BP Pulse Ox O2 Flow Rate 98.6 F 89 16 129/84 H 11/21/23 07:40 11/21/23 07:40 11/21/23 07:40 11/21/23 07:40 Contraction Frequency (min/apart): 2 Contraction Intensity: positive: Mild Uterine Resting Tone: positive: Soft - Monitoring Heart Rate Baseline: 140 Strip Review: positive: Category I - Presentation Presentation: positive: Vertex (Placenta posterior, EFW [id number]) - Vaginal Exam Membranes: positive: Membranes intact Dilation (in cm): 3 Effacement (%): 70 Station: positive: -3 Cervical Position: positive: Midposition Plan for Labor - Plan For Labor I expect patient to be DC'd or transferred within 96 hours.: Yes Plan for Labor: 23yo at 39.3w by LMP consistent with 9w US admitted for scheduled elective term IOL - Admit - T&S, CBC - GBS negative - 3cm, plan to start Pitocin for augmentation - complicated by anxiety/depression, varicella non-immune, tobacco use during - Anticipate
[2023-11-21 08:56] LABS: BASOPHILS # (AUTO) 0.1 10^3/uL (0.0-0.1); BASOPHILS % (AUTO) 0.8 %; EOSINOPHILS # (AUTO) 0.2 10^3/uL (0.0-0.7); EOSINOPHILS % (AUTO) 1.5 %; HCT - HEMATOCRIT 36.3 % (37.0-47.0); HGB - HEMOGLOBIN 11.8 g/dL (12.0-16.0); LYMPHOCYTES # (AUTO) 3.1 10^3/uL (1.5-3.5); LYMPHOCYTES % (AUTO) 21.2 %; MEAN CORPUSCULAR HEMOGLOBIN 28.4 pg (27.0-31.0); MEAN CORPUSCULAR HGB CONC 32.5 g/dL (32.0-36.0); MEAN CORPUSCULAR VOLUME 87.5 fL (81.0-99.0); MEAN PLATELET VOLUME 10.3 fL (7.9-10.8); MONOCYTES # (AUTO) 0.8 10^3/uL (0.0-1.0); MONOCYTES % (AUTO) 5.3 %; NEUTROPHILS # (AUTO) 10.2 10^3/uL (1.5-6.6); NEUTROPHILS % (AUTO) 70.8 %; PLT - PLATELET COUNT 320 10^3/uL (130-450); RED BLOOD COUNT 4.15 10^6/uL (4.20-5.40); RED CELL DISTRIBUTION WIDTH 13.1 % (12.0-15.0); WHITE BLOOD COUNT 14.5 x10^3/uL (4.8-10.8)
[2023-11-21] MEDS ORDERED: SODIUM CHLORIDE FLUSH 0.9% 10 ML SYRINGE IVP SCH (09:00)
[2023-11-21] MEDS: LACTATED RINGERS 1,000 ML IV PRN (09:34)
[2023-11-21] MEDS: OXYTOCIN/SODIUM CHLORIDE 500 ML IV SCH (09:34)
[2023-11-21] MEDS ORDERED: LIDOCAINE 2%-EPI 1:100000 20 ML MDV ONE (12:45)
[2023-11-21] MEDS ORDERED: ROPIVACAINE 0.2% 200 MG/100 ML BAG EP ONE (12:46)
--- NOTE | 2023-11-21 13:29 | PROVIDER PROGRESS NOTE ---
Labor Progress Note - Uterine Monitoring Uterine Monitoring Mode: positive: External toco Contraction Frequency (min/apart): 2 Contraction Intensity: positive: Moderate Uterine Resting Tone: positive: Soft - Monitoring Monitor Mode: positive: External ultrasound Heart Rate Baseline: 120 Heart Rate Variability: positive: Moderate (6-25 bmp) Accelerations: positive: Present, 15x15 Decelerations: positive: None Strip Review: positive: Category I - Vaginal Exam Dilation (in cm): 5 Effacement (%): 100 Station: -3 Cervical Position: Midposition (SROM 1130 today, meconium) - Labor Progress Note Labor Progress Note/Additional Text: 23yo at 39.3w by LMP consistent with 9w US admitted for scheduled elective term IOL - Continue Pitocin - Meconium, notify pediatrics for delivery - Received epidural 1300 - Anticipate
[2023-11-21] MEDS ORDERED: NALBUPHINE 10 MG/ML AMP IVP PRN (13:55)
[2023-11-21] MEDS ORDERED: diphenhydrAMINE INJ 50 MG/ML VIAL IVP PRN (13:55)
[2023-11-21] MEDS ORDERED: ROPIVACAINE 0.2% 200 MG/100 ML BAG EP PRN (13:55)
--- NOTE | 2023-11-21 13:55 | ANESTHESIA ---
Pre-Anesthesia VS, & Labs - Diagnosis IOL - Procedure placement of labor epidural Vital Signs: Temp Pulse Resp BP Pulse Ox O2 Flow Rate 37 C 89 16 129/84 H 11/21/23 07:40 11/21/23 07:40 11/21/23 07:40 11/21/23 07:40 Height: 5 ft 2 in Weight (kg): 83.461 kg Body Mass Index: 33.6 BMI Classification: Obese - NPO Last Fluid Intake: sips current Last Food Intake: about 0800 "just a little - Is Patient ?: Yes - Lab Results Current Lab Results: Laboratory Tests 11/21/23 07:45: WBC 14.5 H, RBC 4.15 L, Hgb 11.8 L, Hct 36.3 L, MCV 87.5, MCH 28.4, MCHC 32.5, RDW 13.1, Plt Count 320, MPV 10.3, Neut # (Auto) 10.2 H, Lymph # (Auto) 3.1, [place] # (Auto) 0.8, Eos # (Auto) 0.2, Baso # (Auto) 0.1, Absolute Nucleated RBC 0.00, Nucleated RBC % 0.0 11/21/23 07:45: Blood Type A POSITIVE, Antibody Screen NEGATIVE Fish Bones: 11/21/23 07:45 Home Medications and Allergies Active Medications Carboprost Tromethamine (Carboprost Tromethamine 250 Mcg/Ml Vial) 250 mcg IM .ONCE PRN PRN Reason: Hemorrhage Fentanyl (Fentanyl 100 Mcg/2 Ml Vial) 50 mcg IVP Q1H PRN PRN Reason: Severe Pain (score 7-10) Hydralazine HCl (Hydralazine Inj 20 Mg/Ml Vial) 5 - 10 mg IVP Q20M PRN; Protocol PRN Reason: SBP> or= 160 OR DBP> or= 110 Hydralazine HCl (Hydralazine Inj 20 Mg/Ml Vial) 10 mg IVP .ONCE PRN; Protocol PRN Reason: SBP> or= 160 OR DBP> or= 110 Lactated Ringer's (Lr) 500 mls @ 999 mls/hr IV PRN PRN PRN Reason: NEEDED PER PROVIDER ORDERS Last Admin: 11/21/23 09:34 Dose: 999 mls/hr Oxytocin/Sodium Chloride (Pitocin/Sodium Chloride) 500 mls @ 999 mls/hr IV PRN PRN; Protocol PRN Reason: POST- HEMORR PREVENTION Tranexamic Acid (Tranexamic 1,000 Mg/100ml-Nacl) 1,000 mg in 100 mls @ 600 mls/hr IV Q30M PRN PRN Reason: EBL >1200mL and within 3hr Oxytocin/Sodium Chloride (Pitocin/Sodium Chloride) 500 mls @ 1 mls/hr IV TITR AGUILA; Protocol Last Titration: 11/21/23 12:51 Dose: 0 milliunit/min, 0 mls/hr Labetalol HCl (Labetalol 20 Mg/4 Ml Syringe) 20 - 80 mg IVP Q10M PRN; Protocol PRN Reason: SBP> or= 160 OR DBP> or= 110 Labetalol HCl (Labetalol 20 Mg/4 Ml Syringe) 20 mg IVP .ONCE PRN; Protocol PRN Reason: SBP> or= 160 OR DBP> or= 110 Labetalol HCl (Labetalol 20 Mg/4 Ml Syringe) 20 - 40 mg IVP Q10M PRN; Protocol PRN Reason: SBP> or= 160 OR DBP> or= 110 Lidocaine HCl (Lidocaine 1% 20 Ml Mdv) 20 ml ID .ONCE PRN PRN Reason: PERINEAL REPAIR Stop: 11/24/23 08:20 Methylergonovine Maleate (Methylergonovine 0.2 Mg/Ml Vial) 0.2 mg IM .ONCE PRN PRN Reason: Hemorrhage Misoprostol (Misoprostol 200 Mcg Tablet) 600 mcg BC .ONCE PRN PRN Reason: Hemorrhage Misoprostol (Misoprostol 200 Mcg Tablet) 800 mcg MO .ONCE PRN PRN Reason: Hemorrhage Nifedipine (Nifedipine 10 Mg Capsule) 10 - 20 mg PO Q20M PRN; Protocol PRN Reason: SBP> or= 160 OR DBP> or= 110 Ondansetron HCl (Ondansetron 4 Mg/2 Ml Vial) 4 mg IVP PRN PRN PRN Reason: Nausea / Vomiting Oxytocin (Oxytocin 10 Unit/Ml Vial) 10 unit IM .ONCE PRN PRN Reason: Step One if no IV access. Sodium Chloride (Sodium Chloride Flush 0.9% 10 Ml Syringe) 10 ml IVP PRN PRN PRN Reason: NEEDED PER PROVIDER ORDERS Sodium Chloride (Sodium Chloride Flush 0.9% 10 Ml Syringe) 10 ml IVP Q8H AGUILA Levothyroxine Sodium 25 mcg PO DAILY 11/26/19 Allergies/Adverse Reactions: Allergies Allergy/AdvReac Type Severity Reaction Status Date / Time Penicillins Allergy Unknown Hives Verified 11/25/19 23:59 dairy AdvReac Intermediate Nausea Uncoded 11/25/19 23:59 eggs AdvReac Intermediate Cramps Uncoded 11/25/19 23:59 gluten AdvReac Intermediate Cramps Uncoded 11/25/19 23:59 cantalope, honeydew AdvReac Unknown Cramps Uncoded 11/25/19 23:59 Anes History & Medical History - Anesthetic History Anesthesia Complications: reports: No previous complications Family history of Anesthesia Complications: Denies - Medical History Cardiovascular: reports: None Pulmonary: reports: Asthma Gastrointestinal: reports: None Urinary: reports: None Neuro: reports: Migraines, Other Musculoskeletal: reports: None Endocrine/Autoimmune: reports: None Blood Disorders: reports: None Skin: reports: None Smoking Status: Current every day smoker Psychosocial: reports: No issues indicated - Obstetrical History : 4 Parity: 2 Events: reports: Labor augmentation Complications: reports: Other (Anxiety/depression, varicella non- immune, tobacco use during ) Exam General: Alert, Oriented x3 Dental: WNL Mouth Openin Fingerbreadth Neck Mobility: Normal Mallampati classification: III Thyromental Distance: 4-6 cm Plan Anesthesia Type: Epidural Consent for Procedure(s) Verified and Reviewed: Yes Code Status: Attempt Resuscitation ASA classification: 2-Mild systemic disease Is this case an emergency?: No
--- NOTE | 2023-11-21 16:22 | DELIVERY NOTE ---
Delivery Note - Labor Labor: positive: Induced by oxytocin - Infant Delivery Method Delivery Method: positive: Spontaneous vaginal delivery - Cervical Ripening Method Cervical Ripening Method: positive: Oxytocin - Presentation Presentation: positive: Vertex, CHARU - right occiput anterior - Nuchal Cord Nuchal Cord: positive: Present - Anesthetic Anesthetic Type: - Amniotic Fluid Description Amniotic Fluid Description: positive: Thick meconium - Episiotomy Type Episiotomy Type: positive: None - Laceration Laceration: positive: 1st degree, Periurethral - Delivery Outcome Delivery Outcome: positive: Livebirth - [place]: positive: Placed in direct skin contact with mother, Bulb syringe, Stimulated, Warmed, Sheridan used [place] sex: positive: Male - Cord Cord: positive: 3 vessels - Placenta Placenta: positive: Intact, Spontaneous - Estimated Blood Loss Estimated Blood Loss (in cc): 50 - Post Delivery Events Post Delivery Events: positive: Shoulder dystocia - Delivery Comments (Free Text/Narrative) Delivery Comments (Free Text/Narrative): This 23 yo G4 @ 39+3 weeks by LMP presented this morning for elective IOL. Cervix was 3/70/-3 and vertex. FHR pattern demonstrated primarily category I pattern. Normal labor course. Epidural placed upon maternal request. SROM @ 1 135, moderate meconium stained amniotic fluid. Pt progressed to C/C/+2 @ 1527. : NSVB of a viable male on 11/21/2023. Nuchal cord x1, tight, delivered through. occurred at 1556 in CHARU position following an approximate 60 second shoulder dystocia that was resolved with easy delivery of posterior arm. The was placed on maternal abdomen, stimulated, dried and placed skin to skin. Apgars 7 at 1 min and 9 at 5 minute on 11/21/2023. Pitocin administered via IV for homeostasis. The umbilical cord was allowed to stop pulsating at which time it was doubly clamped by delivering provider and cut by FOB. 3 VC. Cord blood was obtained. Fundal massage and gentle cord traction applied for active management of third stage. Placenta delivered spontaneously and intact @ 1605. EBL 50. Fourth stage: Uterine fundus firm and there is no excessive bleeding. The perineum, vagina and cervix were inspected and found to be intact. Skin to skin contact initiated. Family bonding well. Both mother and baby are in stable condition. Susannah Machado, Student Nurse Clamp Remover. I was present for entire delivery of and placenta. Head delivered but shoulders did not easily deliver with gentle traction. Dinorah position in place already. Nuchal cord noted but reduced after delivery. Posterior arm easily delivered by myself. Shoulders and body then delivered as above. Ped iatrics present at delivery. Discussed with family. Supervised Susannah Machado (Proctored by Yumiko Garcia CNM) Rupa Jiang DO
[2023-11-21] MEDS: OXYTOCIN/SODIUM CHLORIDE 500 ML IV PRN (16:24)
--- NOTE | 2023-11-21 16:49 | PROVIDER PROGRESS NOTE ---
Subjective - Subjective Subjective: I was present for the delivery only for the purposes of proctoring midwifery student XANDER Huggins. Objective - Vital Signs/Intake & Output Intake & Output: Intake & Output 11/18/23 11/19/23 11/20/23 11/21/23 23:59 23:59 23:59 23:59 Intake Total 19.667 Balance 19.667 - Lab Results Fish Bones: 11/21/23 07:45 Other Labs: Lab Results x24hrs 11/21/23 11/21/23 Range/Units 07:45 07:45 WBC 14.5 H (4.8-10.8) x10^3/uL RBC 4.15 L (4.20-5.40) 10^6/uL Hgb 11.8 L (12.0-16.0) g/dL Hct 36.3 L (37.0-47.0) % MCV 87.5 (81.0-99.0) fL MCH 28.4 (27.0-31.0) pg MCHC 32.5 (32.0-36.0) g/dL RDW 13.1 (12.0-15.0) % Plt Count 320 (130-450) 10^3/uL MPV 10.3 (7.9-10.8) fL Neut # (Auto) 10.2 H (1.5-6.6) 10^3/uL Lymph # (Auto) 3.1 (1.5-3.5) 10^3/uL Banner # (Auto) 0.8 (0.0-1.0) 10^3/uL Eos # (Auto) 0.2 (0.0-0.7) 10^3/uL Baso # (Auto) 0.1 (0.0-0.1) 10^3/uL Absolute Nucleated RBC 0.00 x10^3/uL Nucleated RBC % 0.0 /100WBC Blood Type A POSITIVE Antibody Screen NEGATIVE
[2023-11-21] MEDS ORDERED: SIMETHICONE CHEW 80 MG TABLET PO PRN (17:40)
[2023-11-21] MEDS ORDERED: OXYTOCIN/SODIUM CHLORIDE 500 ML IV PRN (17:40)
[2023-11-21] MEDS ORDERED: HYDROCORTISONE 1% CREAM 28 GM TUBE TOP PRN ×2 (17:40→21:25)
[2023-11-21] MEDS ORDERED: WITCH HAZEL/GLYCERIN 1 PAD TOP PRN ×2 (17:40→21:29)
[2023-11-21] MEDS ORDERED: CALCIUM CARBONATE CHEW 500 MG TABLET PO PRN ×2 (17:40→21:25)
[2023-11-21] MEDS ORDERED: ACETAMINOPHEN 500 MG TABLET PO SCH (18:00)
[2023-11-21] MEDS: ACETAMINOPHEN 500 MG TABLET PO SCH (18:30)
[2023-11-21] MEDS ORDERED: DOCUSATE SODIUM 100 MG CAPSULE PO SCH (21:00)
[2023-11-21] MEDS: DOCUSATE SODIUM 100 MG CAPSULE PO SCH (21:37)
[2023-11-22 10:48] VITALS: BP 126/81
[2023-11-22] MEDS: SIMETHICONE CHEW 80 MG TABLET PO PRN (12:21)
[2023-11-22] MEDS: VARICELLA VACCINE LIVE/PF 1,350 UNIT/0.5 ML VIAL SUBQ ONE (12:33)
--- NOTE | 2023-11-22 14:15 | Labor Flowsheet ---
Labor Flowsheet Datetime Report Generated by CPN: 11/22/2023 14:15 Datetime: 11/22/2023 10:37 VITAL SIGNS NBP Sys/Trina/Mean (mmHg): 126 : 81 : 88 Pulse: 100 Datetime: 11/21/2023 17:45 Stage of : Recovery PAIN Pain Scale: 0 Pain Presence: None/Denies Pain Type: N/A Datetime: 11/21/2023 16:00 Respirations: 16 Temperature (C): 36.6 Temperature Route: Axillary Datetime: 11/21/2023 15:30 UTERINE ACTIVITY Monitor Mode: External Frequency (min): 2-5 Quality: Strong Duration (sec): 60-90 Pattern: Normal: <= 5 Contractions in 10 Minutes Resting Tone (Palpate): Relaxed ASSESSMENT A Monitor Mode: External US FHR Baseline Rate : 125 Variability: Moderate 6-25 bpm Accelerations: 15X15 Decelerations: None Category: Category I STAGE 2 Pushing: Coached on Pushing; Urge to Push Pushing Position: Pushing with Contractions; Pushing Lithotomy Pushing Progress: Descent with Pushing; Presenting Part Visible Datetime: 11/21/2023 15:29 SpO2 (%): 99 LaborFlag: Labor Datetime: 11/21/2023 15:28 I/O Interventions: Coon Discontinued Datetime: 11/21/2023 15:26 Comments: Provider at bedside Susannah SNM Datetime: 11/21/2023 15:05 VAGINAL EXAM Dilatation (cm): 9.5 Effacement (%): 100 Station: 0 Exam by: cmach rn Cervix, Consistency: Soft Datetime: 11/21/2023 15:00 Monitor Interventions for FHR: Ultrasound Adjusted Actions for Decelerations: Side to Side; Sterile Vaginal Exam; Blood Pressure; Provider Notif ied Datetime: 11/21/2023 14:46 PATIENT CARE Patient Position/Activity: Right Lateral Datetime: 11/21/2023 13:54 Vaginal Bleeding: Normal Show Cervix, Position: Anterior Datetime: 11/21/2023 13:30 Monitor Interventions for UA: [place] Adjusted FHR Baseline Changes: No Baseline Change Datetime: 11/21/2023 13:29 Epidural Procedure Other: Pump Started Datetime: 11/21/2023 13:08 Epidural Procedure: Cath Placed Datetime: 11/21/2023 12:48 PROCEDURE TIME OUT Procedure Verify: Correct Patient Identity; Accurate Procedure Consent Form; Agreement on Procedure to be Done ANESTHESIA Anesthesia Plans: Epidural Epidural Positioning: Sitting Datetime: 11/21/2023 12:40 Communication Comments: provider at bedside Datetime: 11/21/2023 12:34 Pain Coping: Crying Datetime: 11/21/2023 12:01 Comfort Measures: Breathing/Relaxation; Coaching; Family Support Datetime: 11/21/2023 11:54 Provider Reviewed Strip: Yes COMMUNICATION Communication: Call/Page Placed to Provider Datetime: 11/21/2023 11:48 Pain Relief Measures: Comfort Measures Pain Assessment Comments: nitrous o Datetime: 11/21/2023 11:35 Amniotic Fluid Color: Light Meconium Datetime: 11/21/2023 09:30 Pitocin Checklist: At Least 1 Acceleration of 15 bpm x 15 Seconds in 30 Minutes or Adequate Variabi lity; No More than 1 Late Deceleration Occurred in Past 30 Minutes; No More than 2 Variable Decelerat ions > 60 Seconds in Duration and decreasing >60 bpm in 30 minutes; No More than 5 Uterine Contractio ns in 10 Minutes for any 20 Minute Interval; Uterus Palpates Soft between Contractions Datetime: 11/21/2023 08:33 Membranes Ruptured Date/Time: 11/21/2023 11:35 Membranes Rupture Method: Spontaneous Amniotic Fluid Amount: Small Amniotic Fluid Odor: Normal Datetime: 11/01/2023 20:15 Provider Notified (Name): Dr. Cortez Datetime: 10/18/2023 09:43 Patient Care Comments: pt taken off monitor, walking to ultrasound
[2023-11-22] MEDS ORDERED: IBUPROFEN 600 MG TABLET PO SCH ×2 (18:00)
--- NOTE | 2023-11-22 21:42 | DISCHARGE SUMMARY ---
"Discharge Summary Admit Date: 11/21/23 Discharge Date: 11/22/23 Discharging Provider: Arely Cortez MD Code Status: Attempt Resuscitation Condition at Discharge: Good - DIAGNOSES Admission Diagnoses: term admitted for labor induction Discharge Diagnoses with Status of Each Condition: vaginal delivery of term , shoulder dystocia with no sequella. varicella non immune. vaccinated prior to discharge smoker. - HPI History of Present Illness: uncomplicated. presents for labor induction at 39+ weeks. - CONSULTS | PROCEDURES Procedures: vaginal delivery - HOSPITAL COURSE Hospital Course: Patient was admitted for induction of labor. She was 3 cm dilated. Pitocin was started. she received epidural. vaginal delivery with tight nuchal cord and shoudler dystocia relieved by delivery of posterior shoulder. she did great pp and was discharge home ppd 1. breast feeding going well. Baby boy Pola Sen born 11/21/23 at 3:56 pm. Apgars 7/0. 7 lb 12 oz, 19 inches long. - ALLERGIES Allergies/Adverse Reactions: Allergies Allergy/AdvReac Type Severity Reaction Status Date / Time Penicillins Allergy Unknown Hives Verified 11/25/19 23:59 dairy AdvReac Intermediate Nausea Uncoded 11/25/19 23:59 eggs AdvReac Intermediate Cramps Uncoded 11/25/19 23:59 gluten AdvReac Intermediate Cramps Uncoded 11/25/19 23:59 cantalope, honeydew AdvReac Unknown Cramps Uncoded 11/25/19 23:59 - MEDICATIONS Home Medications: Ambulatory Orders Medication Instructions Recorded Confirmed Levothyroxine Sodium 25 mcg PO DAILY 11/26/19 11/26/19 Oxycodone HCl/Acetaminophen 1 - 2 each PO HS PRN #10 tab 11/01/23 [Oxycodone-Acetaminophen 5-325] - PHYSICAL EXAM AT DISCHARGE General Appearance: positive: No acute distress Respiratory: positive: No respiratory distress Cardiovascular: positive: Regular rate & rhythm Abdomen: positive: Non-tender Extremities: positive: Non-tender, Other (mild edema) - LABS Result Diagrams: 11/21/23 07:45 - FOLLOW UP Follow Up: 1 week - TIME SPENT Time Spent in Discharge (Minutes): 55"
== END 2023-11-22 13:00 | disposition home or self-care (01) | DRG 807 ==
LOC: WFO 07:04 → FBP 07:06 → WFO 16:08
PROVIDERS: ADMIT Obstetrics & Gynecology; ATTEND Obstetrics & Gynecology
PROC: 10E0XZZ Delivery of Products of Conception, External Approach (ICD-10-PCS; principal; 2023-11-21)
PROC: 3E033VJ Introduction of Other Hormone into Peripheral Vein, Percutaneous Approach (ICD-10-PCS; 2023-11-21)
DX: O71.82 Other specified trauma to perineum and vulva (principal); Z37.0 Single live birth; O69.81X0 Labor and delivery complicated by cord around neck, without compression, not applicable or unspecified; O66.0 Obstructed labor due to shoulder dystocia; Z3A.39 39 weeks gestation of pregnancy; O99.334 Smoking (tobacco) complicating childbirth; F17.200 Nicotine dependence, unspecified, uncomplicated; O99.344 Other mental disorders complicating childbirth; F41.9 Anxiety disorder, unspecified; F32.A Depression, unspecified; O77.0 Labor and delivery complicated by meconium in amniotic fluid
CPT/HCPCS: 36415; 59409; 85025; 86850; 86900; 86901; 90716; A9270; J7120